=== PATIENT | female | born 1985 | race Caucasian/White ===

== ENCOUNTER 2018-03-27 11:41 | Inpatient (IN) | payer OTHER ==
[2018-03-27] MEDS ORDERED: PREDNISONE 20 MG TABLET PO ONE (12:09)
[2018-03-27] MEDS ORDERED: IPRATROPIUM/ALBUTEROL 0.5-2.5 MG/3 ML AMPUL NEB ONE ×2 (12:09→13:13)
--- NOTE | 2018-03-27 12:11 | ER Document Report ---
ED Medical Screen (RME) - General Chief Complaint: Chest Congestion Stated Complaint: TROUBLE BREATHING Time Seen by Provider: 03/27/18 12:08 Notes: 33 years old female presents today with cough and difficulty in breathing with a history of asthma for the last several days. No fever chills but had sore throat. Vomited one time this morning. On examination morbid obesity, decreased breath sounds bilaterally as well as TRAVEL OUTSIDE OF THE [place] IN LAST 30 DAYS: No - Related Data Allergies/Adverse Reactions: No Known Allergies Allergy (Verified 03/27/18 11:45) Past Medical History - Past Medical History Cardiac Medical History: Reports: Hx Hypertension Endocrine Medical History: Reports: Hx Diabetes Mellitus Type 2 Psychiatric Medical History: Reports: Hx Anxiety, Hx Depression Past Surgical History: Reports: Hx Appendectomy - Immunizations Hx Diphtheria, Pertussis, Tetanus Vaccination: Yes Physical Exam - Vital signs Vitals: Temp Pulse Resp BP Pulse Ox 99.6 F 118 H 24 H 172/110 H 96 03/27/18 12:02 03/27/18 12:02 03/27/18 12:02 03/27/18 12:02 03/27/18 12:02 Course - Vital Signs Vital signs: Temp Pulse Resp BP Pulse Ox 99.6 F 118 H 24 H 172/110 H 96 03/27/18 12:02 03/27/18 12:02 03/27/18 12:02 03/27/18 12:02 03/27/18 12:02 Doctor's Discharge - Discharge Referrals: KRYSTLE HUTCHISON MD [Primary Care Provider] - Follow up as needed
[2018-03-27] MEDS ORDERED: HYDROCODONE BIT/HOMATROPINE SYRUP 5 ML UDCUP PO ONE (12:15)
[2018-03-27] MEDS ORDERED: CLONIDINE HCL 0.2 MG TABLET PO ONE (12:24)
[2018-03-27 12:58] LABS: HEMATOCRIT 28.1 % (36.0-47.0); HEMOGLOBIN 8.4 g/dL (12.0-15.5); MEAN CORPUSCULAR HGB CONC 29.8 g/dL (32.0-36.0); PLATELET COUNT 412 10^3/uL (150-450); RED BLOOD COUNT 4.64 10^6/uL (3.72-5.28); RED CELL DISTRIBUTION WIDTH 20.8 % (11.5-14.0); WHITE BLOOD COUNT 9.1 10^3/uL (4.0-10.5)
[2018-03-27] MEDS ORDERED: HYDROCODONE BIT/HOMATROPINE 5-1.5 MG TABLET PO ONE (13:00)
[2018-03-27 13:05] LABS: APPEARANCE,URINE CLEAR; BILIRUBIN,URINE NEGATIVE (NEGATIVE); COLOR,URINE YELLOW; GLUCOSE, URINE NEGATIVE (NEGATIVE); KETONES,URINE NEGATIVE (NEGATIVE); LEUKOCYTE ESTERASE,URINE NEGATIVE (NEGATIVE); NITRITE,URINE NEGATIVE (NEGATIVE); PROTEIN,URINE 100 mg/dL (NEGATIVE); URINE SPECIFIC GRAVITY 1.012
[2018-03-27 13:06] LABS: MEAN CORPUSCULAR VOLUME 61 fl (80-97)
[2018-03-27] MEDS ORDERED: FUROSEMIDE INJ/PF 40 MG/4 ML SDV IV ONE ×2 (13:12→16:02)
[2018-03-27] MEDS ORDERED: NITROGLYCERIN 2% OINTMENT 1 GM PACKET TP ONE (13:12)
--- NOTE | 2018-03-27 13:14 | ER Document Report ---
ED General - General Chief Complaint: Chest Congestion Stated Complaint: TROUBLE BREATHING Time Seen by Provider: 03/27/18 12:08 Mode of Arrival: Ambulatory Information source: Patient Notes: This is a 33-year-old female with a history of morbid obesity, asthma presents to the emergency room with 1 week history of cough, shortness of breath, increasing lower extremity edema and weight gain. Patient does take inhalers as well as metoprolol daily. She is not allergic to any medicines. [facility] is followed [facility]. TRAVEL OUTSIDE OF THE [place] IN LAST 30 DAYS: No - Related Data Allergies/Adverse Reactions: No Known Allergies Allergy (Verified 03/27/18 11:45) Past Medical History - Social History Smoking Status: Former Smoker Frequency of alcohol use: None Drug Abuse: None Family History: Reviewed & Not Pertinent Patient has suicidal ideation: No Patient has homicidal ideation: No - Past Medical History Cardiac Medical History: Reports: Hx Hypertension Pulmonary Medical History: Reports: Hx Asthma Endocrine Medical History: Reports: Hx Diabetes Mellitus Type 2 Renal/ Medical History: Denies: Hx Peritoneal Dialysis Psychiatric Medical History: Reports: Hx Anxiety, Hx Depression Past Surgical History: Reports: Hx Appendectomy - Immunizations Hx Diphtheria, Pertussis, Tetanus Vaccination: Yes Physical Exam - Vital signs Vitals: Temp Pulse Resp BP Pulse Ox 99.6 F 118 H 24 H 172/110 H 96 03/27/18 12:02 03/27/18 12:02 03/27/18 12:02 03/27/18 12:02 03/27/18 12:02 Notes: Physical exam: GENERAL: She is alert and oriented x3, blood pressure is 174/123, pulse is 118, respiratory rate 24, O2 sat 96% on room air. Patient is afebrile. HEAD: Atraumatic, normocephalic. EYES: Pupils equal round and reactive to light, extraocular movements intact, sclera anicteric, conjunctiva are normal. ENT: TMs normal, nares patent, oropharynx clear without exudates. Moist mucous membranes. NECK: Normal range of motion, supple without obvious mass or JVD. LUNGS: Guided wheezing with some baseline crackles. HEART: Regular rate and rhythm without murmurs, rubs or gallops. ABDOMEN: Soft, normoactive bowel sounds. No tenderness to palpation. No guarding, no rebound. No masses appreciated. EXTREMITIES: 1+ edema to the lower extremities NEUROLOGICAL: Cranial nerves II through XII grossly intact. Normal speech, moving all extremities. PSYCH: Normal mood, normal affect. SKIN: Warm, Dry, normal turgor, no rashes or lesions noted. Course - Re-evaluation Re-evalutation: 03/27/18 16:01 This is a 33-year-old female with possible sarcoidosis who presents with significant dyspnea on exertion which is been progressive and worsening over the past few weeks. Patient also reports increasing lower extremity edema and weight gain. Patient does have cardiomegaly on chest x-ray and does have lower extremity edema. Her BNP is elevated at 1600 and she has normal renal function. The concern is that she may have a cardiomyopathy with CHF. I discussed the case with Dr. Boyle who agreed the patient should be admitted for further workup including echo. - Vital Signs Vital signs: Temp Pulse Resp BP Pulse Ox 99.6 F 118 H 23 H 148/93 H 95 03/27/18 12:02 03/27/18 12:02 03/27/18 15:28 03/27/18 15:28 03/27/18 15:28 - Laboratory Result Diagrams: 03/27/18 12:30 03/27/18 13:34 Laboratory results interpreted by me: 03/27/18 03/27/18 03/27/18 12:30 12:30 13:34 Hgb 8.4 L Hct 28.1 L MCV 61 L MCH 18.0 L MCHC 29.8 L RDW 20.8 H AST 59 H ALT 56 H Creatine Kinase 161 H NT-Pro-B Natriuret Pep Albumin 3.3 L Urine Protein 100 H Urine Urobilinogen 2.0 H 03/27/18 13:34 Hgb Hct MCV MCH MCHC RDW AST ALT Creatine Kinase NT-Pro-B Natriuret Pep 1600 H Albumin Urine Protein Urine Urobilinogen - Diagnostic Test Radiology reviewed: Image reviewed, Reports reviewed - Audio megaly - EKG Interpretation by Me Rate: Normal - EKG shows normal sinus rhythm with a ventricular rate of 93, poor R wave progression, no acute ST-T wave changes Discharge - Discharge Clinical Impression: Dyspnea on exertion, CHF Clinical Impression: (Ruled Out): Lipid overload Condition: Stable Disposition: ADMITTED INPATIENT Admitting Provider: Hospitalist - Dr Moreno Unit Admitted: Telemetry Referrals: KRYSTLE HUTCHISON MD [NO LOCAL MD] - Follow up as needed
[2018-03-27 13:18] LABS: ABSOLUTE LYMPHOCYTES# (MANUAL) 2.3 10^3/uL (0.5-4.7); ABSOLUTE MONOCYTES # (MANUAL) 0.8 10^3/uL (0.1-1.4); ABSOLUTE NEUTROPHILS# (MANUAL) 5.6 10^3/uL (1.7-8.2); BASOPHILS % (MANUAL) 0 % (0-2); EOSINOPHILS % (MANUAL) 4 % (0-6); LYMPHOCYTES % (MANUAL) 25 % (13-45); MONOCYTES % (MANUAL) 9 % (3-13); SEGMENTED NEUTROPHILS % (MAN) 62 % (42-78); TOTAL CELLS COUNTED 100
[2018-03-27 13:19] LABS: ANISOCYTOSIS 2+; HYPOCHROMASIA 4+; OVALOCYTES 1+; PLATELET COMMENT ADEQUATE; POIKILOCYTOSIS 1+; POLYCHROMASIA SLIGHT; SCHISTOCYTES 1+; TARGET CELLS 1+
--- NOTE | 2018-03-27 13:34 | RADIOLOGY REPORT (SQ) ---
EXAM DESCRIPTION: CHEST SINGLE VIEW COMPLETED DATE/TIME: 03/27/2018 1:23 pm REASON FOR STUDY: Cough COMPARISON: None. EXAM PARAMETERS: NUMBER OF VIEWS: One view. TECHNIQUE: Single frontal radiographic view of the chest acquired. RADIATION DOSE: NA LIMITATIONS: None. FINDINGS: LUNGS AND PLEURA: No opacities, masses or pneumothorax. No pleural effusion. MEDIASTINUM AND HILAR STRUCTURES: No masses. Contour normal. HEART AND VASCULAR STRUCTURES: Cardiomegaly. No pulmonary edema. BONES: Scoliosis. HARDWARE: None in the chest. OTHER: No other significant finding. IMPRESSION: Gross cardiomegaly without pulmonary edema. Scoliosis. TECHNICAL DOCUMENTATION: JOB ID: [id number] [employer]- All Rights Reserved Reading location - IP/workstation name: [email or web address]
[2018-03-27 14:19] LABS: ALANINE AMINOTRANSFERASE 56 U/L (9-52); ALBUMIN 3.3 g/dL (3.5-5.0); ALKALINE PHOSPHATASE 78 U/L (38-126); ANION GAP 8 (5-19); ASPARTATE AMINO TRANSFERASE 59 U/L (14-36); BILIRUBIN,DIRECT 0.4 mg/dL (0.0-0.4); BILIRUBIN,TOTAL 0.9 mg/dL (0.2-1.3); BLOOD UREA NITROGEN 9 mg/dL (7-20); CALCIUM 8.4 mg/dL (8.4-10.2); CARBON DIOXIDE 27 mmol/L (22-30); CHLORIDE 107 mmol/L (98-107); CREATINE KINASE 161 U/L (30-135); GLUCOSE 101 mg/dL (75-110); POTASSIUM 4.2 mmol/L (3.6-5.0); SODIUM 142.1 mmol/L (137-145); TOTAL PROTEIN 6.5 g/dL (6.3-8.2)
[2018-03-27] MEDS ORDERED: LABETALOL HCL INJ 20 MG/4 ML DISP.SYRIN IV ONE (14:27)
[2018-03-27 14:28] LABS: CREATINE KINASE MB 0.98 ng/mL (<4.55); NT PRO BNP 1600 pg/mL (<125)
[2018-03-27 14:30] LABS: TROPONIN I < 0.012 ng/mL
[2018-03-27] MEDS ORDERED: TEMAZEPAM 15 MG CAPSULE PO PRN (16:46)
[2018-03-27] MEDS ORDERED: MAG HYDROX/AL HYDROX/SIMETH SUSP 30 ML UDCUP PO PRN (16:46)
[2018-03-27] MEDS ORDERED: MAGNESIUM HYDROXIDE SUSP 30 ML UDCUP PO PRN (16:46)
[2018-03-27] MEDS ORDERED: ONDANSETRON 4 MG TAB.RAPDIS PO PRN (16:46)
[2018-03-27] MEDS ORDERED: ACETAMINOPHEN 325 MG TABLET PO PRN (16:46)
[2018-03-27] MEDS ORDERED: MORPHINE SULFATE 10 MG/ML INJ IV PRN (17:01)
[2018-03-27] MEDS ORDERED: MORPHINE SULFATE 10 MG/ML INJ IV ONE (17:30)
[2018-03-27 17:54] LABS: CREATINE KINASE MB 1.01 ng/mL (<4.55)
--- NOTE | 2018-03-27 17:55 | PDOC H&P ---
History of Present Illness Admission Date/PCP: 03/27/18 16:17 TYLER VIVAR MD Patient complains of: Dyspnea and swelling History of Present Illness: RUPA WELLS is a 33 year old female who presented to the emergency room with a 2-month history of progressively worsening dyspnea on exertion and swelling of her lower extremities. She began having some difficulty with dyspnea approximately 6 months ago when she was [facility] who felt that she had pulmonary sarcoidosis and or histoplasmosis. She was supposed to be evaluated by a time clock mechanic however due to delays and cancellations caused by the recent inclement weather she is not yet been evaluated. She states that her dyspnea on exertion is now severe limiting her to only minimal activities before she becomes short of breath and requires rest. She has moderate to severe swelling of her lower extremities which improves after rest and elevation but returns during the day when her feet are down or she is active. She has additionally noted a nonproductive cough over the last week. She denies nausea, vomiting, diarrhea, constipation, abdominal pain, chest pain, palpitations, diaphoresis, syncope, headache, fever and chills. She denies prior similar episodes and has not identified any aggravating or ameliorating factors for her dyspnea on exertion and swelling. She has a past history of morbid obesity and asthma as well as hypertension. When she was seen in the emergency room she was found to be significantly short of breath and and markedly hypertensive. On evaluation she was found to have a BNP pro of 1600, a hypochromic microcytic anemia with a hemoglobin of 8.4 and a chest x-ray demonstrating marked cardiomegaly without evidence of pulmonary edema. She was admitted to the hospital for further evaluation and treatment. Past Medical History Cardiac Medical History: Reports: Hypertension Denies: Coronary Artery Disease, DVT, Myocardial Infarction, Hyperlipidema, Pulmonary Embolism, Heart Murmur Pulmonary Medical History: Reports: Asthma, Other - Possible pulmonary sarcoidosis and/or histoplasmosis Denies: Chronic Obstructive Pulmonary Disease (COPD), Respiratory Failure, Tuberculosis EENT Medical History: Reports: None Neurological Medical History: Denies: Hemorrhagic CVA, Ischemic CVA, Multiple Sclerosis, Seizures Endocrine Medical History: Reports: Diabetes Mellitus Type 2, Obesity Denies: Diabetes Mellitus Type 1, Hyperthyroidism, Hypothyroidism Renal/ Medical History: Denies: Chronic Kidney Disease, Nephrolithiasis Malignancy Medical History: Reports: None GI Medical History: Denies: Crohn's Disease, Gastroesophageal Reflux Disease, Peptic Ulcer Disease, Ulcerative Colitis Musculoskeltal Medical History: Denies: Arthritis, Gout Skin Medical History: Denies: Eczema, Psoriasis Psychiatric Medical History: Reports: Depression Denies: Alcohol Dependency, General Anxiety Disorder, Substance Abuse, Tobacco Dependency Traumatic Medical History: Reports: None Hematology: Denies: Sickle Cell Disease, Bleeding Tendencies Infectious Medical History: Reports: None Past Surgical History Past Surgical History: Reports: Appendectomy Social History Smoking Status: Former Smoker Family History Family History: DM, Hypertension Parental Family History Reviewed: Yes Children Family History Reviewed: NA Sibling(s) Family History Reviewed.: Yes Medication/Allergy Home Medications: Albuterol Sulfate [Proair HFA Inhalation Aerosol 8.5 gm MDI] 2 puff IH Q6HP PRN 03/27/18 Ipratropium [place] [Atrovent Hfa] 2 puff IH QID 03/27/18 Metoprolol Tartrate [Lopressor 100 mg Tablet] 100 mg PO DAILY 03/27/18 Topiramate [Topamax 25 mg Tablet] 25 mg PO BID 03/27/18 Allergies/Adverse Reactions: No Known Allergies Allergy (Verified 03/27/18 11:45) Review of Systems Constitutional: ABSENT: chills, fever(s) Eyes: PRESENT: visual disturbances. ABSENT: other - Ocular pain Ears: ABSENT: hearing changes, other - Ear pain Nose, Mouth, and Throat: ABSENT: mouth pain, sore throat, vertigo Cardiovascular: PRESENT: dyspnea on exertion, edema. ABSENT: chest pain, orthropnea, palpitations Respiratory: PRESENT: cough, dyspnea. ABSENT: hemoptysis, sputum Gastrointestinal: ABSENT: abdominal pain, constipation, diarrhea, dysphagia, nausea, vomiting Genitourinary: ABSENT: dysuria, hematuria - [id number] Musculoskeletal: ABSENT: deformity, joint swelling Integumentary: ABSENT: pruritus, rash Neurological: ABSENT: confusion, convulsions, dizziness, focal weakness, memory loss, syncope, tremor(s), vertigo Psychiatric: PRESENT: depression. ABSENT: anxiety Endocrine: ABSENT: cold intolerance, heat intolerance, polydipsia, polyphagia, polyuria Hematologic/Lymphatic: ABSENT: easy bleeding, easy bruising Allergic/Immunologic: ABSENT: seasonal rhinorrhea - [id number], other - Insect bite allergy Physical Exam Vital Signs: Temp Pulse Resp BP Pulse Ox 99.6 F 118 H 23 H 148/93 H 95 03/27/18 12:02 03/27/18 12:02 03/27/18 15:28 03/27/18 15:28 03/27/18 15:28 General appearance: PRESENT: no acute distress, cooperative, morbidly obese Head exam: PRESENT: atraumatic, normocephalic Eye exam: PRESENT: conjunctiva pink, EOMI. ABSENT: conjunctival injection, nystagmus, periorbital swelling, scleral icterus Ear exam: PRESENT: normal external ear exam. ABSENT: bleeding, drainage Mouth exam: PRESENT: neck supple, tongue midline Neck exam: ABSENT: thyromegaly, tracheal deviation Respiratory exam: PRESENT: decreased breath sounds - Slightly decreased breath sounds throughout all lung lewis, prolonged expiratory phas - Mildly prolonged expiratory phase, rales - Fine bibasilar rales posteriorly., symmetrical, unlabored, wheezes - Minimal end expiratory wheezes Cardiovascular exam: PRESENT: gallop - Faint and intermittent S4 gallop noted, RRR. ABSENT: clicks, rubs Pulses: PRESENT: normal radial pulses, normal dorsalis pedis pul Vascular exam: PRESENT: normal capillary refill. ABSENT: pallor GI/Abdominal exam: PRESENT: normal bowel sounds, soft - [id number] Rectal exam: PRESENT: deferred Extremities exam: PRESENT: +2 edema - Bilateral lower extremities with pitting. ABSENT: calf tenderness, clubbing, joint swelling Musculoskeletal exam: PRESENT: ambulatory, full ROM. ABSENT: deformity, dislocation, tenderness Neurological exam: PRESENT: alert, awake, oriented to person, oriented to place , oriented to time, oriented to situation, CN II-XII grossly intact. ABSENT: motor sensory deficit Psychiatric exam: PRESENT: appropriate affect, normal mood Skin exam: ABSENT: jaundice, rash, urticaria Results Impressions: Chest X-Ray 03/27/18 12:08 IMPRESSION: Gross cardiomegaly without pulmonary edema. Scoliosis. Assessment & Plan - Diagnosis (1) Dyspnea on minimal exertion Is this a current diagnosis for this admission?: Yes Plan: Rupa his dyspnea may well be due to her underlying pulmonary disease of some nature and as such she will be treated with an aggressive pulmonary toilet utilizing Xopenex every 8 hours and Atrovent every 8 hours with budesonide every 12 hours. Additionally with her significant cardiomegaly and with the findings on her physical exam it is strongly considered that she may have acute congestive heart failure and as such she will be treated with metoprolol XL 200 mg p.o. daily, lisinopril 20 mg p.o. daily, torsemide 40 mg p.o. daily and spironolactone 25 mg p.o. daily. A lipid profile will be obtained to evaluate appropriate therapy for any lipid abnormalities. A TSH will be obtained in the morning. Additionally patient is treated with morphine 2 mg IV x1 stat followed by morphine 2 mg IV every hour as needed dyspnea or chest pain. An echocardiogram is ordered and will be read by Dr. Boyle and a pulmonary consultation is obtained with Dr. Medel. I have personally reviewed her EKG which shows a normal sinus rhythm with significant left ventricular hypertrophy and I have personally evaluated her chest x-ray which shows marked cardiomegaly without radiographic evidence of acute congestive heart failure or pulmonary edema. (2) Edema of both lower extremities Is this a current diagnosis for this admission?: Yes Plan: Med his edema will be addressed by continuing diuretic therapy. She was started on Lasix 40 mg IV in the emergency room and this will be discontinued in favor of oral torsemide 40 mg p.o. daily. Daily lab work will be evaluated with a chemistry profile to assess diuretic therapy. A TSH will also be obtained during her hospital stay. (3) Malignant hypertension Is this a current diagnosis for this admission?: Yes Plan: Patient has been taking metoprolol tartrate 100 mg p.o. daily and her blood pressure is significantly elevated at the time of her admission. She was treated with labetalol in the emergency room with a fair result. She will be treated with metoprolol succinate 200 mg p.o. daily initially as well as lisinopril 20 mg p.o. daily, torsemide 40 mg p.o. daily and spironolactone 25 mg p.o. daily. We will monitor her daily lab work with a chemistry profile, complete blood count and magnesium level. (4) Morbid obesity Is this a current diagnosis for this admission?: Yes Plan: Dietary planning and other assistance for weight control and weight loss will be offered during her hospital course. (5) History of diabetes mellitus, type II Is this a current diagnosis for this admission?: Yes Plan: Patient does not have a significantly elevated blood sugar and is not on current medication for diabetes though she does eat a sensible diet. Hemoglobin A1c will be checked to further evaluate. - Time Time Spent: Greater than 70 Minutes Medications reviewed and adjusted accordingly: Yes Anticipated discharge: Home
[2018-03-27 17:58] LABS: TROPONIN I < 0.012 ng/mL
[2018-03-27] MEDS ORDERED: METOPROLOL SUCCINATE 50 MG TAB.SR.24H PO ONE (18:00)
--- NOTE | 2018-03-27 18:13 | EKG REPORT ---
SEVERITY:- ABNORMAL ECG - SINUS RHYTHM PROBABLE LEFT ATRIAL ABNORMALITY PROLONGED QT INTERVAL POOR R WAVE TRANSITION ANTERIOR PRECORDIAL LEADS. INFEROLATERAL ST-T CHANGES. : Confirmed by: Chavez Dunaway MD 27-Mar-2018 18:13:00
[2018-03-27] MEDS: IPRATROPIUM BROMIDE 0.02% NEB 0.5 MG/2.5 ML AMPUL NEB SCH (18:39)
[2018-03-27] MEDS: LEVALBUTEROL HCL NEB 1.25 MG/3 ML AMPUL NEB SCH (18:40)
[2018-03-27] MEDS: DOCUSATE SODIUM 100 MG CAPSULE PO SCH (18:54)
[2018-03-27] MEDS: TORSEMIDE 20 MG TABLET PO SCH (19:14)
[2018-03-27] MEDS: BUDESONIDE NEB 0.5 MG/2 ML AMPUL NEB SCH (21:09)
[2018-03-27] MEDS: FAMOTIDINE 20 MG TABLET PO SCH (21:46)
[2018-03-27] MEDS: TOPIRAMATE 25 MG TABLET PO SCH (21:56)
[2018-03-27 23:48] LABS: CREATINE KINASE MB 0.67 ng/mL (<4.55); TROPONIN I < 0.012 ng/mL
[2018-03-28] MEDS: IPRATROPIUM BROMIDE 0.02% NEB 0.5 MG/2.5 ML AMPUL NEB SCH ×3 (00:03→16:28)
[2018-03-28] MEDS: LEVALBUTEROL HCL NEB 1.25 MG/3 ML AMPUL NEB SCH ×3 (00:03→16:29)
[2018-03-28 05:24] LABS: ABSOLUTE BASOPHILS # (AUTO) 0.1 10^3/uL (0.0-0.2); ABSOLUTE LYMPHOCYTES (AUTO) 2.2 10^3/uL (0.5-4.7); ABSOLUTE MONOCYTES (AUTO) 0.8 10^3/uL (0.1-1.4); ABSOLUTE NEUT (AUTO) 7.5 10^3/uL (1.7-8.2); BASOPHILS % (AUTO) 0.8 % (0-2); HEMATOCRIT 27.9 % (36.0-47.0); HEMOGLOBIN 8.3 g/dL (12.0-15.5); LYMPHOCYTES % (AUTO) 20.6 % (13-45); MEAN CORPUSCULAR HEMOGLOBIN 17.6 pg (27.0-33.4); MEAN CORPUSCULAR HGB CONC 29.6 g/dL (32.0-36.0); MEAN CORPUSCULAR VOLUME 59 fl (80-97); MONOCYTES % (AUTO) 7.8 % (3-13); PLATELET COUNT 385 10^3/uL (150-450); RED CELL DISTRIBUTION WIDTH 20.2 % (11.5-14.0); SEGMENTED NEUTROPHILS % (AUTO) 70.8 % (42-78); TOTAL CELLS COUNTED % (AUTO) 100 %; WHITE BLOOD COUNT 10.6 10^3/uL (4.0-10.5)
[2018-03-28 05:37] LABS: ALANINE AMINOTRANSFERASE 57 U/L (9-52); ALBUMIN 3.5 g/dL (3.5-5.0); ALKALINE PHOSPHATASE 81 U/L (38-126); ANION GAP 8 (5-19); ASPARTATE AMINO TRANSFERASE 48 U/L (14-36); BILIRUBIN,DIRECT 0.4 mg/dL (0.0-0.4); BILIRUBIN,TOTAL 0.9 mg/dL (0.2-1.3); BLOOD UREA NITROGEN 11 mg/dL (7-20); CALCIUM 8.6 mg/dL (8.4-10.2); CARBON DIOXIDE 32 mmol/L (22-30); CHLORIDE 102 mmol/L (98-107); CHOLESTEROL 128.61 mg/dL (0-200); CREATINE KINASE 142 U/L (30-135); GLUCOSE 109 mg/dL (75-110); POTASSIUM 3.8 mmol/L (3.6-5.0); SODIUM 141.7 mmol/L (137-145); TOTAL PROTEIN 6.6 g/dL (6.3-8.2); TRIGLYCERIDES 58 mg/dL (<150)
[2018-03-28 05:48] LABS: DIRECT LDL 72 mg/dL (<100); POLYCHROMASIA SLIGHT; TOXIC GRANULATION 1+
[2018-03-28 05:50] LABS: TROPONIN I < 0.012 ng/mL
[2018-03-28 05:58] LABS: HYPOCHROMASIA 3+
[2018-03-28 05:59] LABS: ANISOCYTOSIS 2+; OVALOCYTES SLIGHT; POIKILOCYTOSIS 1+; SCHISTOCYTES 1+; TARGET CELLS 1+
[2018-03-28 06:00] LABS: PLATELET COMMENT ADEQUATE; PLATELET GIANT PRESENT; PLATELET LARGE PRESENT
[2018-03-28] MEDS: BUDESONIDE NEB 0.5 MG/2 ML AMPUL NEB SCH ×2 (08:24→20:34)
[2018-03-28] MEDS: DOCUSATE SODIUM 100 MG CAPSULE PO SCH ×2 (09:22→17:23)
[2018-03-28] MEDS: LISINOPRIL 10 MG TABLET PO SCH (09:22)
[2018-03-28] MEDS: METOPROLOL SUCCINATE 50 MG TAB.SR.24H PO SCH (09:22)
[2018-03-28] MEDS: SPIRONOLACTONE 25 MG TABLET PO SCH (09:22)
[2018-03-28] MEDS: FAMOTIDINE 20 MG TABLET PO SCH ×2 (09:22→21:10)
[2018-03-28] MEDS: ENOXAPARIN SODIUM INJ 40 MG/0.4 ML DISP.SYRIN SUBCUT SCH (09:22)
[2018-03-28] MEDS: TOPIRAMATE 25 MG TABLET PO SCH ×2 (09:23→21:10)
[2018-03-28] MEDS: TORSEMIDE 20 MG TABLET PO SCH (09:24)
[2018-03-28] MEDS ORDERED: METOPROLOL SUCCINATE 50 MG TAB.SR.24H PO SCH (10:00)
[2018-03-28 11:22] LABS: PATH REVIEW PATHOLOGIST REVIEWED
--- NOTE | 2018-03-28 14:46 | PDOC PROGRESS REPORT ---
Subjective Progress Note for:: 03/28/18 Subjective:: RUPA WELLS is a 33 year old female who presented to the emergency room with a 2-month history of progressively worsening dyspnea on exertion and swelling of her lower extremities. She began having some difficulty with dyspnea approximately 6 months ago when she was evaluated [facility] a [facility] who felt that she had pulmonary sarcoidosis and or histoplasmosis. She was supposed to be evaluated by a secured entrance monitor however due to delays and cancellations caused by the recent inclement weather she is not yet been evaluated. She states that her dyspnea on exertion is now severe limiting her to only minimal activities before she becomes short of breath and requires rest. She has moderate to severe swelling of her lower extremities which improves after rest and elevation but returns during the day when her feet are down or she is active. She has additionally noted a nonproductive cough over the last week. She denies nausea, vomiting, diarrhea, constipation, abdominal pain, chest pain, palpitations, diaphoresis, syncope, headache, fever and chills. She denies prior similar episodes and has not identified any aggravating or ameliorating factors for her dyspnea on exertion and swelling. She has a past history of morbid obesity and asthma as well as hypertension. When she was seen in the emergency room she was found to be significantly short of breath and and markedly hypertensive. On evaluation she was found to have a BNP pro of 1600, a hypochromic microcytic anemia with a hemoglobin of 8.4 and a chest x-ray demonstrating marked cardiomegaly without evidence of pulmonary edema. She was admitted to the hospital for further evaluation and treatment. 03/28/18: Rupa is significantly improved and her dyspnea as she is able to tolerate some activities in her room without any dyspnea and she has noticed improvement in her lower extremities being less swollen. Her cough is significantly improved is essentially absent at this point. She continues to be pain-free and has no symptoms of nausea, vomiting, diarrhea, constipation, palpitations, diaphoresis, syncope, fever or chills. She agrees to be patient in giving it time to further diurese and obtain further improvement in her respiratory status. Dr. Medel has still not seen the patient but she is eagerly awaiting his evaluation. Reason For Visit: CONGESTIVE HEART FAILURE Physical Exam Vital Signs: Temp Pulse Resp BP Pulse Ox 98.5 F 100 24 H 139/85 H 98 03/28/18 11:42 03/28/18 13:56 03/28/18 11:42 03/28/18 11:42 03/28/18 11:42 Intake & Output 03/26/18 03/27/18 03/28/18 23:59 23:59 23:59 Intake Total 240 Balance 240 Weight 137.6 kg 132.4 kg General appearance: PRESENT: no acute distress, cooperative, morbidly obese Head exam: PRESENT: atraumatic, normocephalic Eye exam: ABSENT: conjunctival injection, periorbital swelling, scleral icterus Ear exam: PRESENT: normal external ear exam. ABSENT: drainage Mouth exam: PRESENT: neck supple, tongue midline Neck exam: ABSENT: JVD, thyromegaly, tracheal deviation Respiratory exam: PRESENT: clear to auscultation [place], symmetrical, unlabored Cardiovascular exam: PRESENT: RRR. ABSENT: clicks, gallop, rubs Vascular exam: PRESENT: normal capillary refill. ABSENT: pallor GI/Abdominal exam: PRESENT: normal bowel sounds, soft Rectal exam: PRESENT: deferred Extremities exam: PRESENT: +2 edema - 2+ pitting edema of the bilateral pretibial surfaces and feet and ankles.. ABSENT: clubbing, joint swelling Musculoskeletal exam: PRESENT: full ROM. ABSENT: deformity, dislocation, tenderness Neurological exam: PRESENT: alert, oriented to person, oriented to place, oriented to time, oriented to situation, CN II-XII grossly intact. ABSENT: motor sensory deficit Psychiatric exam: PRESENT: appropriate affect, normal mood Skin exam: ABSENT: jaundice, rash, urticaria Results Laboratory Results: 03/28/18 05:03 03/28/18 05:03 03/28/18 03/28/18 03/28/18 05:03 05:03 05:03 WBC 10.6 H RBC 4.70 Hgb 8.3 L Hct 27.9 L MCV 59 L MCH 17.6 L MCHC 29.6 L RDW 20.2 H Plt Count 385 Seg Neutrophils % 70.8 Lymphocytes % 20.6 Monocytes % 7.8 Eosinophils % 0.0 Basophils % 0.8 Absolute Neutrophils 7.5 Absolute Lymphocytes 2.2 Absolute Monocytes 0.8 Absolute Eosinophils 0.0 Absolute Basophils 0.1 Sodium 141.7 Potassium 3.8 Chloride 102 Carbon Dioxide 32 H Anion Gap 8 BUN 11 Creatinine 0.84 Est GFR ( Amer) > 60 Est GFR (Non-Af Amer) > 60 Glucose 109 Calcium 8.6 Magnesium 1.6 Total Bilirubin 0.9 AST 48 H ALT 57 H Alkaline Phosphatase 81 Total Protein 6.6 Albumin 3.5 Triglycerides 58 Cholesterol 128.61 LDL Cholesterol Direct 72 VLDL Cholesterol 12.0 HDL Cholesterol 42 TSH 0.43 L 03/27/18 03/27/18 03/27/18 17:10 17:10 23:08 Creatine Kinase 161 H 152 H CK-MB (CK-2) 1.01 Troponin I < 0.012 03/27/18 03/28/18 03/28/18 23:08 05:03 05:03 Creatine Kinase 142 H CK-MB (CK-2) 0.67 0.60 Troponin I < 0.012 < 0.012 Impressions: Chest X-Ray 03/27/18 12:08 IMPRESSION: Gross cardiomegaly without pulmonary edema. Scoliosis. Assessment & Plan - Diagnosis (1) Dyspnea on minimal exertion Is this a current diagnosis for this admission?: Yes Plan: Rupa's dyspnea may well be due to her underlying pulmonary disease of some nature and as such she will be treated with an aggressive pulmonary toilet utilizing Xopenex every 8 hours and Atrovent every 8 hours with budesonide every 12 hours. Additionally with her significant cardiomegaly and with the findings on her physical exam it is strongly considered that she may have acute congestive heart failure and as such she will be treated with metoprolol XL 200 mg p.o. daily, lisinopril 20 mg p.o. daily, torsemide 40 mg p.o. daily and spironolactone 25 mg p.o. daily. A lipid profile will be obtained to evaluate appropriate therapy for any lipid abnormalities. A TSH will be obtained in the morning. Additionally patient is treated with morphine 2 mg IV x1 stat followed by morphine 2 mg IV every hour as needed dyspnea or chest pain. An echocardiogram is ordered and will be read by Dr. Boyle and a pulmonary consultation is obtained with Dr. Medel. I have personally reviewed her EKG which shows a normal sinus rhythm with significant left ventricular hypertrophy and I have personally evaluated her chest x-ray which shows marked cardiomegaly without radiographic evidence of acute congestive heart failure or pulmonary edema. 03/28/18: Rupa's dyspnea is improving with aggressive pulmonary toilet as well as medical treatment for congestive heart failure. I will have patient ambulate 5 times daily with extension of her duration of activity as well as increasing the intensity of her activity to the degree possible to be obtained. Nursing staff has been informed of this plan. I anticipate Dr. Medel's consultation either today or tomorrow. Patient will have daily lab work performed to follow and evaluate her multiple treatments including those for this problem. (2) Edema of both lower extremities Is this a current diagnosis for this admission?: Yes Plan: Rupa's edema will be addressed by continuing diuretic therapy. She was started on Lasix 40 mg IV in the emergency room and this will be discontinued in favor of oral torsemide 40 mg p.o. daily. Daily lab work will be evaluated with a chemistry profile to assess diuretic therapy. A TSH will also be obtained during her hospital stay. 03/28/18: Meghans edema is slightly improved today and further evaluation will be made on a day-to-day basis with continuation of diuretic therapy and possible increase or decrease as appropriate. Daily laboratory evaluations will be obtained to assess therapy and to correct any electrolyte abnormalities which may occur due to therapy. Her TSH was low at 4.3 therefore follow-up thyroid evaluations will be obtained. (3) Malignant hypertension Is this a current diagnosis for this admission?: Yes Plan: Patient has been taking metoprolol tartrate 100 mg p.o. daily and her blood pressure is significantly elevated at the time of her admission. She was treated with labetalol in the emergency room with a fair result. She will be treated with metoprolol succinate 200 mg p.o. daily initially as well as lisinopril 20 mg p.o. daily, torsemide 40 mg p.o. daily and spironolactone 25 mg p.o. daily. We will monitor her daily lab work with a chemistry profile, complete blood count and magnesium level. 03/28/18: Rupa's blood pressure has been significantly reduced with initiation of her current therapeutic plan. She is nearly at goal for therapy (130/80) on this regimen. The current regiment will be continued through the remainder of her hospitalization and afterward unless there is a need to make alterations. Daily lab work will be followed to evaluate for any complications of therapy. (4) Morbid obesity Is this a current diagnosis for this admission?: Yes Plan: Dietary planning and other assistance for weight control and weight loss will be offered during her hospital course. (5) History of diabetes mellitus, type II Is this a current diagnosis for this admission?: Yes Plan: Patient does not have a significantly elevated blood sugar and is not on current medication for diabetes though she does eat a sensible diet. Hemoglobin A1c will be checked to further evaluate. 03/28/18: Patient's hemoglobin A1c is 6.2 which is consistent with prediabetes or possibly 1 of the metabolic syndromes but is not diagnostic of diabetes mellitus. Patient will be continued on a continuous carbohydrate no concentrated sweets diet as it is appropriate for her weight loss and will not contribute to any progression towards diabetes or worsen any metabolic syndrome. This diet therapy will be maintained to the remainder of the hospital course and recommended posthospitalization. - Time Time Spent with patient: 35 or more minutes Medications reviewed and adjusted accordingly: Yes Anticipated discharge: Home
[2018-03-29] MEDS: IPRATROPIUM BROMIDE 0.02% NEB 0.5 MG/2.5 ML AMPUL NEB SCH ×4 (00:01→23:59)
[2018-03-29] MEDS: LEVALBUTEROL HCL NEB 1.25 MG/3 ML AMPUL NEB SCH ×4 (00:01→23:59)
[2018-03-29 06:28] LABS: ABSOLUTE BASOPHILS # (AUTO) 0.1 10^3/uL (0.0-0.2); ABSOLUTE EOSINOPHILS # (AUTO) 0.3 10^3/uL (0.0-0.6); ABSOLUTE MONOCYTES (AUTO) 0.8 10^3/uL (0.1-1.4); ABSOLUTE NEUT (AUTO) 3.9 10^3/uL (1.7-8.2); BASOPHILS % (AUTO) 1.5 % (0-2); EOSINOPHILS % (AUTO) 3.2 % (0-6); HEMATOCRIT 29.3 % (36.0-47.0); HEMOGLOBIN 8.6 g/dL (12.0-15.5); LYMPHOCYTES % (AUTO) 43.8 % (13-45); MEAN CORPUSCULAR HEMOGLOBIN 17.5 pg (27.0-33.4); MEAN CORPUSCULAR HGB CONC 29.2 g/dL (32.0-36.0); MEAN CORPUSCULAR VOLUME 60 fl (80-97); MONOCYTES % (AUTO) 8.7 % (3-13); PLATELET COUNT 401 10^3/uL (150-450); RED BLOOD COUNT 4.88 10^6/uL (3.72-5.28); RED CELL DISTRIBUTION WIDTH 20.3 % (11.5-14.0); SEGMENTED NEUTROPHILS % (AUTO) 42.8 % (42-78); TOTAL CELLS COUNTED % (AUTO) 100 %; WHITE BLOOD COUNT 9.1 10^3/uL (4.0-10.5)
[2018-03-29 06:30] LABS: BLOOD UREA NITROGEN 19 mg/dL (7-20); CALCIUM 8.6 mg/dL (8.4-10.2); CARBON DIOXIDE 29 mmol/L (22-30); CHLORIDE 102 mmol/L (98-107); GLUCOSE 82 mg/dL (75-110); POTASSIUM 4.1 mmol/L (3.6-5.0)
[2018-03-29 06:31] LABS: ANION GAP 9 (5-19)
[2018-03-29 06:43] LABS: FREE T3 3.46 pg/mL (2.77-5.27)
[2018-03-29 06:44] LABS: FREE T4 (FREE THYROXINE) 1.57 ng/dL (0.78-2.19)
[2018-03-29 06:49] LABS: ANISOCYTOSIS 2+; BURR CELLS SLIGHT; HYPOCHROMASIA 2+; OVALOCYTES 1+; PLATELET COMMENT ADEQUATE; POIKILOCYTOSIS 2+; POLYCHROMASIA SLIGHT; SCHISTOCYTES SLIGHT; TARGET CELLS 2+
[2018-03-29] MEDS: BUDESONIDE NEB 0.5 MG/2 ML AMPUL NEB SCH ×2 (07:51→20:19)
[2018-03-29] MEDS: SPIRONOLACTONE 25 MG TABLET PO SCH (09:56)
[2018-03-29] MEDS: DOCUSATE SODIUM 100 MG CAPSULE PO SCH ×2 (09:56→18:34)
[2018-03-29] MEDS: TOPIRAMATE 25 MG TABLET PO SCH ×2 (09:56→21:25)
[2018-03-29] MEDS: LISINOPRIL 10 MG TABLET PO SCH (09:56)
[2018-03-29] MEDS: FAMOTIDINE 20 MG TABLET PO SCH ×2 (09:56→21:25)
[2018-03-29] MEDS: TORSEMIDE 20 MG TABLET PO SCH (09:56)
[2018-03-29] MEDS: METOPROLOL SUCCINATE 50 MG TAB.SR.24H PO SCH (09:56)
[2018-03-29] MEDS: ENOXAPARIN SODIUM INJ 40 MG/0.4 ML DISP.SYRIN SUBCUT SCH (09:56)
--- NOTE | 2018-03-29 12:54 | XCELERA REPORT ---
[address] [address] Transthoracic Echocardiogram Report Name: AXEL WELLS Age: 33 yrs Gender: Female : 1985 Patient Status: Inpatient Patient Location: [address] [place] [address] Study Date: 03/28/2018 02:14 PM Procedure: A two-dimensional transthoracic echocardiogram with color flow and Doppler was performed. The study was technically difficult with many images being suboptimal in quality. Reason For Study: Acute congestive heart failure History: CHF. Ordering Physician: CELESTE NÚÑEZ Performed By: Carlene Garland Interpretation Summary The left ventricle is mildly dilated. There is normal left ventricular wall thickness. LV EF is 55% Left ventricular systolic function is low normal. Doppler measurements suggest normal left ventricular diastolic function The left ventricular wall motion is normal. The right ventricle is mildly dilated. There is mild right ventricular hypertrophy. The right ventricular systolic function is normal. The right atrium is mildly dilated. The left atrium is mildly dilated. There is no evidence of mitral valve prolapse. There is no mitral valve stenosis. There is no mitral regurgitation noted. There is no aortic valve stenosis There is no LVOT obstruction. No aortic regurgitation is present. There is no tricuspid stenosis. There is a mild amount of tricuspid regurgitation There is mild pulmonary hypertension by echo RVSP is 38 to 43 mm of Hg , with RA mean of 5 to 10. There is no pulmonic valvular stenosis. There is a mild amount of pulmonic regurgitation Minimal pericardial effusion. There are no echocardiographic or Doppler indications for cardiac tamponade MMode/2D Measurements & Calculations RVDd: 3.8 cm LVIDd: 6.2 cm FS: 31.7 % Ao root diam: 3.2 cm IVSd: 1.1 cm LVIDs: 4.2 cm EDV(Teich): 193.8 ml Ao root area: 8.0 cm2 LVPWd: 1.1 cm ESV(Teich): 79.9 ml EF(Teich): 58.7 % Doppler Measurements & Calculations MV E max latasha: MV dec slope: Ao V2 max: LV V1 max P.4 cm/sec 134.3 cm/sec 4.3 mmHg MV A max latasha: 574.7 cm/sec2 Ao max PG: LV V1 max: 25.6 cm/sec MV dec time: 7.2 mmHg 103.1 cm/sec MV E/A: 3.9 0.17 sec PA V2 max: PI end-d latasha: TR max latasha: 109.6 cm/sec 132.7 cm/sec 286.6 cm/sec PA max P.8 mmHg TR max P.8 mmHg Left Ventricle The left ventricle is mildly dilated. There is normal left ventricular wall thickness. LV EF is 55%. Left ventricular systolic function is low normal. Doppler measurements suggest normal left ventricular diastolic function. The left ventricular wall motion is normal. There is no thrombus. Right Ventricle The right ventricle is mildly dilated. There is mild right ventricular hypertrophy. The right ventricular systolic function is normal. Atria The right atrium is mildly dilated. The left atrium is mildly dilated. Mitral Valve There is no evidence of mitral valve prolapse. There is no vegetation seen on the mitral valve. There is no mitral valve stenosis. There is no mitral regurgitation noted. Aortic Valve There is no aortic valvular vegetation. There is no aortic valve stenosis. There is no LVOT obstruction. No aortic regurgitation is present. Tricuspid Valve There is no tricuspid stenosis. There is a mild amount of tricuspid regurgitation. There is mild pulmonary hypertension by echo. RVSP is 38 to 43 mm of Hg , with RA mean of 5 to 10. Pulmonic Valve There is no pulmonic valvular stenosis. There is a mild amount of pulmonic regurgitation. Great Vessels The aortic root is normal size. Effusions Minimal pericardial effusion. There are no echocardiographic or Doppler indications for cardiac tamponade. : CELESTE NÚÑEZ > Natalee Boyle
--- NOTE | 2018-03-29 16:57 | PDOC PROGRESS REPORT ---
Subjective Progress Note for:: 03/29/18 Subjective:: RUPA WELLS is a 33 year old female who presented to the emergency room with a 2-month history of progressively worsening dyspnea on exertion and swelling of her lower extremities. She began having some difficulty with dyspnea approximately 6 months ago when she was evaluated [facility] a [facility] who felt that she had pulmonary sarcoidosis and or histoplasmosis. She was supposed to be evaluated by a washtub worker however due to delays and cancellations caused by the recent inclement weather she is not yet been evaluated. She states that her dyspnea on exertion is now severe limiting her to only minimal activities before she becomes short of breath and requires rest. She has moderate to severe swelling of her lower extremities which improves after rest and elevation but returns during the day when her feet are down or she is active. She has additionally noted a nonproductive cough over the last week. She denies nausea, vomiting, diarrhea, constipation, abdominal pain, chest pain, palpitations, diaphoresis, syncope, headache, fever and chills. She denies prior similar episodes and has not identified any aggravating or ameliorating factors for her dyspnea on exertion and swelling. She has a past history of morbid obesity and asthma as well as hypertension. When she was seen in the emergency room she was found to be significantly short of breath and and markedly hypertensive. On evaluation she was found to have a BNP pro of 1600, a hypochromic microcytic anemia with a hemoglobin of 8.4 and a chest x-ray demonstrating marked cardiomegaly without evidence of pulmonary edema. She was admitted to the hospital for further evaluation and treatment. 03/28/18: Rupa is significantly improved and her dyspnea as she is able to tolerate some activities in her room without any dyspnea and she has noticed improvement in her lower extremities being less swollen. Her cough is significantly improved is essentially absent at this point. She continues to be pain-free and has no symptoms of nausea, vomiting, diarrhea, constipation, palpitations, diaphoresis, syncope, fever or chills. She agrees to be patient in giving it time to further diurese and obtain further improvement in her respiratory status. Dr. Medel has still not seen the patient but she is eagerly awaiting his evaluation. 03/29/18: Rupa states that she feels a little bit better again today. Feels like she is able to breathe more easily and she has not been experiencing significant dyspnea. She continues to have reduction of swelling in her lower extremities and her cough is been absent. Dr. Medel saw her yesterday and she was very happy to meet him. He has not reported his consultation findings as yet but I would be expecting to see that this weekend. I have looked at her echocardiogram and it does appear that she has mild pulmonary hypertension but no other significant finding with the exception of some minimal concentric enlargement of the left ventricular wall. Blood pressures overall significantly improved and clinically she appears to be substantially improved from her previous evaluation. She has been tolerating activity including walking in the halls without significant dyspnea. Reason For Visit: CONGESTIVE HEART FAILURE Physical Exam Vital Signs: Temp Pulse Resp BP Pulse Ox 97.9 F 86 20 132/96 H 100 03/29/18 16:28 03/29/18 16:28 03/29/18 16:28 03/29/18 16:28 03/29/18 16:28 Intake & Output 03/27/18 03/28/18 03/29/18 23:59 23:59 23:59 Intake Total 1072 358 Balance 1072 358 Weight 137.6 kg 132.4 kg 128.4 kg General appearance: PRESENT: no acute distress, cooperative, morbidly obese Head exam: PRESENT: atraumatic, normocephalic Eye exam: ABSENT: conjunctival injection, scleral icterus Ear exam: PRESENT: normal external ear exam. ABSENT: drainage Mouth exam: PRESENT: neck supple, tongue midline Neck exam: ABSENT: JVD, thyromegaly, tracheal deviation Respiratory exam: PRESENT: clear to auscultation [place], symmetrical, unlabored Cardiovascular exam: PRESENT: RRR. ABSENT: clicks, gallop, rubs Vascular exam: PRESENT: normal capillary refill. ABSENT: pallor GI/Abdominal exam: PRESENT: normal bowel sounds, soft Rectal exam: PRESENT: deferred Extremities exam: PRESENT: pedal edema, +1 edema - Bilateral lower extremity edema from the knees to the feet with pitting.. ABSENT: joint swelling Musculoskeletal exam: PRESENT: full ROM, normal inspection Neurological exam: PRESENT: alert, oriented to person, oriented to place, oriented to time, oriented to situation, CN II-XII grossly intact. ABSENT: motor sensory deficit Psychiatric exam: PRESENT: appropriate affect, normal mood Skin exam: ABSENT: jaundice, rash, urticaria Results Laboratory Results: 03/29/18 05:27 03/29/18 05:27 03/29/18 03/29/18 03/29/18 05:27 05:27 05:27 WBC 9.1 RBC 4.88 Hgb 8.6 L Hct 29.3 L MCV 60 L MCH 17.5 L MCHC 29.2 L RDW 20.3 H Plt Count 401 Seg Neutrophils % 42.8 Lymphocytes % 43.8 Monocytes % 8.7 Eosinophils % 3.2 Basophils % 1.5 Absolute Neutrophils 3.9 Absolute Lymphocytes 4.0 Absolute Monocytes 0.8 Absolute Eosinophils 0.3 Absolute Basophils 0.1 Sodium 140.0 Potassium 4.1 Chloride 102 Carbon Dioxide 29 Anion Gap 9 BUN 19 Creatinine 1.00 Est GFR ( Amer) > 60 Est GFR (Non-Af Amer) > 60 Glucose 82 Calcium 8.6 Magnesium 1.7 Free T4 1.57 Free T3 pg/mL 3.46 03/27/18 03/27/18 03/27/18 17:10 17:10 23:08 Creatine Kinase 161 H 152 H CK-MB (CK-2) 1.01 Troponin I < 0.012 03/27/18 03/28/18 03/28/18 23:08 05:03 05:03 Creatine Kinase 142 H CK-MB (CK-2) 0.67 0.60 Troponin I < 0.012 < 0.012 Impressions: Chest X-Ray 03/27/18 12:08 IMPRESSION: Gross cardiomegaly without pulmonary edema. Scoliosis. Assessment & Plan - Diagnosis (1) Dyspnea on minimal exertion Is this a current diagnosis for this admission?: Yes Plan: Rupa's dyspnea may well be due to her underlying pulmonary disease of some nature and as such she will be treated with an aggressive pulmonary toilet utilizing Xopenex every 8 hours and Atrovent every 8 hours with budesonide every 12 hours. Additionally with her significant cardiomegaly and with the findings on her physical exam it is strongly considered that she may have acute congestive heart failure and as such she will be treated with metoprolol XL 200 mg p.o. daily, lisinopril 20 mg p.o. daily, torsemide 40 mg p.o. daily and spironolactone 25 mg p.o. daily. A lipid profile will be obtained to evaluate appropriate therapy for any lipid abnormalities. A TSH will be obtained in the morning. Additionally patient is treated with morphine 2 mg IV x1 stat followed by morphine 2 mg IV every hour as needed dyspnea or chest pain. An echocardiogram is ordered and will be read by Dr. Boyle and a pulmonary consultation is obtained with Dr. Medel. I have personally reviewed her EKG which shows a normal sinus rhythm with significant left ventricular hypertrophy and I have personally evaluated her chest x-ray which shows marked cardiomegaly without radiographic evidence of acute congestive heart failure or pulmonary edema. 03/28/18: Meghans dyspnea is improving with aggressive pulmonary toilet as well as medical treatment for congestive heart failure. I will have patient ambulate 5 times daily with extension of her duration of activity as well as increasing the intensity of her activity to the degree possible to be obtained. Nursing staff has been informed of this plan. I anticipate Dr. Medel's consultation either today or tomorrow. Patient will have daily lab work performed to follow and evaluate her multiple treatments including those for this problem. 03/29/18: Meghans dyspnea is again improving and she is tolerating activity with 5 times daily ambulations. She was seen by Dr. Medel in consultation with report pending. Her echocardiogram was reviewed by myself and found to show a pulmonary hypertension as well as mild left ventricular muscular wall hypertrophy. Her clinical improvement is encouraging and I eagerly await Dr. Medel's consultation report. Further therapy will be based upon pulmonology recommendations. (2) Edema of both lower extremities Is this a current diagnosis for this admission?: Yes Plan: Meghans edema will be addressed by continuing diuretic therapy. She was started on Lasix 40 mg IV in the emergency room and this will be discontinued in favor of oral torsemide 40 mg p.o. daily. Daily lab work will be evaluated with a chemistry profile to assess diuretic therapy. A TSH will also be obtained during her hospital stay. 03/28/18: Meghans edema is slightly improved today and further evaluation will be made on a day-to-day basis with continuation of diuretic therapy and possible increase or decrease as appropriate. Daily laboratory evaluations will be obtained to assess therapy and to correct any electrolyte abnormalities which may occur due to therapy. Her TSH was low at 0.43 therefore follow-up thyroid evaluations will be obtained. 03/29/18: Meghans edema is significantly improved today moving from 2+ down to 1+, however pitting is still present. Her thyroid functions are normal as assessed by free T4 and free T3. We will continue to monitor her edema with daily exams. Thus far she has diuresed almost 12 kg of weight. (3) Malignant hypertension Is this a current diagnosis for this admission?: Yes Plan: Patient has been taking metoprolol tartrate 100 mg p.o. daily and her blood pressure is significantly elevated at the time of her admission. She was treated with labetalol in the emergency room with a fair result. She will be treated with metoprolol succinate 200 mg p.o. daily initially as well as lisinopril 20 mg p.o. daily, torsemide 40 mg p.o. daily and spironolactone 25 mg p.o. daily. We will monitor her daily lab work with a chemistry profile, complete blood count and magnesium level. 03/28/18: Rupa's blood pressure has been significantly reduced with initiation of her current therapeutic plan. She is nearly at goal for therapy (130/80) on this regimen. The current regiment will be continued through the remainder of her hospitalization and afterward unless there is a need to make alterations. Daily lab work will be followed to evaluate for any complications of therapy. 03/29/18: Med his blood pressure continues to be somewhat higher than her therapeutic goal. Her medications will be adjusted to gain better control of her blood pressure. Her heart rate is still in the 90s and therefore beta-blockade is not truly adequate and her metoprolol succinate will be increased to 400 mg p.o. daily. (4) Morbid obesity Is this a current diagnosis for this admission?: Yes Plan: Dietary planning and other assistance for weight control and weight loss will be offered during her hospital course. 03/29/18: Dietary consultation is ordered. (5) History of diabetes mellitus, type II Is this a current diagnosis for this admission?: Yes Plan: Patient does not have a significantly elevated blood sugar and is not on current medication for diabetes though she does eat a sensible diet. Hemoglobin A1c will be checked to further evaluate. 03/28/18: Patient's hemoglobin A1c is 6.2 which is consistent with prediabetes or possibly 1 of the metabolic syndromes but is not diagnostic of diabetes mellitus. Patient will be continued on a continuous carbohydrate no concentrated sweets diet as it is appropriate for her weight loss and will not contribute to any progression towards diabetes or worsen any metabolic syndrome. This diet therapy will be maintained to the remainder of the hospital course and recommended posthospitalization. - Time Time Spent with patient: 35 or more minutes Medications reviewed and adjusted accordingly: Yes Anticipated discharge: Home
[2018-03-29] MEDS ORDERED: METOPROLOL SUCCINATE 50 MG TAB.SR.24H PO ONE (16:59)
[2018-03-30 06:40] LABS: HEMATOCRIT 29.5 % (36.0-47.0); HEMOGLOBIN 8.7 g/dL (12.0-15.5); MEAN CORPUSCULAR HEMOGLOBIN 17.7 pg (27.0-33.4); MEAN CORPUSCULAR HGB CONC 29.4 g/dL (32.0-36.0); MEAN CORPUSCULAR VOLUME 60 fl (80-97); PLATELET COUNT 366 10^3/uL (150-450); RED CELL DISTRIBUTION WIDTH 20.7 % (11.5-14.0); WHITE BLOOD COUNT 7.6 10^3/uL (4.0-10.5)
[2018-03-30 06:53] LABS: ANION GAP 8 (5-19); BLOOD UREA NITROGEN 17 mg/dL (7-20); CALCIUM 8.9 mg/dL (8.4-10.2); CARBON DIOXIDE 28 mmol/L (22-30); CHLORIDE 103 mmol/L (98-107); GLUCOSE 79 mg/dL (75-110); SODIUM 139.4 mmol/L (137-145)
[2018-03-30 07:08] LABS: ABSOLUTE LYMPHOCYTES# (MANUAL) 3.3 10^3/uL (0.5-4.7); ABSOLUTE MONOCYTES # (MANUAL) 0.2 10^3/uL (0.1-1.4); ABSOLUTE NEUTROPHILS# (MANUAL) 3.9 10^3/uL (1.7-8.2); BASOPHILS % (MANUAL) 0 % (0-2); EOSINOPHILS % (MANUAL) 3 % (0-6); LYMPHOCYTES % (MANUAL) 43 % (13-45); MONOCYTES % (MANUAL) 3 % (3-13); SEGMENTED NEUTROPHILS % (MAN) 51 % (42-78); TOTAL CELLS COUNTED 100
[2018-03-30 07:11] LABS: ANISOCYTOSIS 3+; HELMET CELLS 1+; OVALOCYTES 1+; POIKILOCYTOSIS 2+; TARGET CELLS 1+
[2018-03-30 07:12] LABS: PLATELET COMMENT ADEQUATE; TEAR DROP CELLS SLIGHT
[2018-03-30] MEDS: BUDESONIDE NEB 0.5 MG/2 ML AMPUL NEB SCH (08:13)
[2018-03-30] MEDS: IPRATROPIUM BROMIDE 0.02% NEB 0.5 MG/2.5 ML AMPUL NEB SCH (08:13)
[2018-03-30] MEDS: LEVALBUTEROL HCL NEB 1.25 MG/3 ML AMPUL NEB SCH (08:13)
[2018-03-30] MEDS: LISINOPRIL 10 MG TABLET PO SCH (09:28)
[2018-03-30] MEDS: SPIRONOLACTONE 25 MG TABLET PO SCH (09:28)
[2018-03-30] MEDS: TOPIRAMATE 25 MG TABLET PO SCH (09:29)
[2018-03-30] MEDS: ENOXAPARIN SODIUM INJ 40 MG/0.4 ML DISP.SYRIN SUBCUT SCH (09:29)
[2018-03-30] MEDS: TORSEMIDE 20 MG TABLET PO SCH (09:29)
[2018-03-30] MEDS: DOCUSATE SODIUM 100 MG CAPSULE PO SCH (09:29)
[2018-03-30] MEDS: FAMOTIDINE 20 MG TABLET PO SCH (09:29)
[2018-03-30] MEDS ORDERED: METOPROLOL SUCCINATE 50 MG TAB.SR.24H PO SCH (10:00)
[2018-03-30 11:31] VITALS: BP 132/96
--- NOTE | 2018-03-30 11:52 | PDOC DISCHARGE SUMMARY ---
General - Admit/Disc Date/PCP Admission Date/Primary Care Provider: 03/27/18 16:17 TYLER VIVAR MD Discharge Date: 03/30/18 - Discharge Diagnosis (1) Acute right heart failure Is this a current diagnosis for this admission?: Yes Summary: Axel's dyspnea may well be due to her underlying pulmonary disease of some nature and as such she will be treated with an aggressive pulmonary toilet utilizing Xopenex every 8 hours and Atrovent every 8 hours with budesonide every 12 hours. Additionally with her significant cardiomegaly and with the findings on her physical exam it is strongly considered that she may have acute congestive heart failure and as such she will be treated with metoprolol XL 200 mg p.o. daily, lisinopril 20 mg p.o. daily, torsemide 40 mg p.o. daily and spironolactone 25 mg p.o. daily. A lipid profile will be obtained to evaluate appropriate therapy for any lipid abnormalities. A TSH will be obtained in the morning. Additionally patient is treated with morphine 2 mg IV x1 stat followed by morphine 2 mg IV every hour as needed dyspnea or chest pain. An echocardiogram is ordered and will be read by Dr. Boyle and a pulmonary consultation is obtained with Dr. Medel. I have personally reviewed her EKG which shows a normal sinus rhythm with significant left ventricular hypertrophy and I have personally evaluated her chest x-ray which shows marked cardiomegaly without radiographic evidence of acute congestive heart failure or pulmonary edema. 03/28/18: Meghans dyspnea is improving with aggressive pulmonary toilet as well as medical treatment for congestive heart failure. I will have patient ambulate 5 times daily with extension of her duration of activity as well as increasing the intensity of her activity to the degree possible to be obtained. Nursing staff has been informed of this plan. I anticipate Dr. Medel's consultation either today or tomorrow. Patient will have daily lab work performed to follow and evaluate her multiple treatments including those for this problem. 03/29/18: Axel's dyspnea is again improving and she is tolerating activity with 5 times daily ambulations. She was seen by Dr. Medel in consultation with report pending. Her echocardiogram was reviewed by myself and found to show a pulmonary hypertension as well as mild left ventricular muscular wall hypertrophy. Her clinical improvement is encouraging and I eagerly await Dr. Medel's consultation report. Further therapy will be based upon pulmonology recommendations. Axel's edema will be addressed by continuing diuretic therapy. She was started on Lasix 40 mg IV in the emergency room and this will be discontinued in favor of oral torsemide 40 mg p.o. daily. Daily lab work will be evaluated with a chemistry profile to assess diuretic therapy. A TSH will also be obtained during her hospital stay. 03/28/18: Axel's edema is slightly improved today and further evaluation will be made on a day-to-day basis with continuation of diuretic therapy and possible increase or decrease as appropriate. Daily laboratory evaluations will be obtained to assess therapy and to correct any electrolyte abnormalities which may occur due to therapy. Her TSH was low at 0.43 therefore follow-up thyroid evaluations will be obtained. 03/29/18: Axel's edema is significantly improved today moving from 2+ down to 1+, however pitting is still present. Her thyroid functions are normal as assessed by free T4 and free T3. We will continue to monitor her edema with daily exams. Thus far she has diuresed almost 12 kg of weight. (4) Morbid obesity Is this a current diagnosis for this admission?: Yes Plan: (5) History of diabetes mellitus, type II Is this a current diagnosis for this admission?: Yes Plan: (2) Malignant hypertension Is this a current diagnosis for this admission?: Yes Summary: Patient has been taking metoprolol tartrate 100 mg p.o. daily and her blood pressure is significantly elevated at the time of her admission. She was treated with labetalol in the emergency room with a fair result. She will be treated with metoprolol succinate 200 mg p.o. daily initially as well as lisinopril 20 mg p.o. daily, torsemide 40 mg p.o. daily and spironolactone 25 mg p.o. daily. We will monitor her daily lab work with a chemistry profile, complete blood count and magnesium level. 03/28/18: Axel's blood pressure has been significantly reduced with initiation of her current therapeutic plan. She is nearly at goal for therapy (130/80) on this regimen. The current regiment will be continued through the remainder of her hospitalization and afterward unless there is a need to make alterations. Daily lab work will be followed to evaluate for any complications of therapy. 03/29/18: Axel's blood pressure continues to be somewhat higher than her therapeutic goal. Her medications will be adjusted to gain better control of her blood pressure. Her heart rate is still in the 90s and therefore beta-blockade is not truly adequate and her metoprolol succinate will be increased to 400 mg p.o. daily. 03/30/18: Axel's blood pressure today is well controlled (when taken with the appropriate sized blood pressure cuff) and her heart rate is 70s indicating a better/more effective beta-blockade. This dosage of metoprolol succinate will be continued at discharge. (3) Pulmonary hypertension Is this a current diagnosis for this admission?: Yes Summary: Pulmonary hypertension was noted on the echocardiogram and was judged to be mild. I am suspicious that the etiology of her pulmonary hypertension is obstructive sleep apnea or other is a possibility per the patient's history that she may have sarcoidosis or histoplasmosis involvement of the lungs. I have no evidence of either of those diagnoses and I am awaiting the results of Dr. Medel's consultation and recommendations for further evaluation and treatment. Since Axel is going to be discharged prior to Dr. Medel's consultation report we will arrange for her to follow-up with Dr. Medel at his outpatient clinic setting. (4) Morbid obesity Is this a current diagnosis for this admission?: Yes Summary: Dietary planning and other assistance for weight control and weight loss will be offered during her hospital course. 03/29/18: Dietary consultation is ordered. (5) History of diabetes mellitus, type II Is this a current diagnosis for this admission?: Yes Summary: Patient does not have a significantly elevated blood sugar and is not on current medication for diabetes though she does eat a sensible diet. Hemoglobin A1c will be checked to further evaluate. 03/28/18: Patient's hemoglobin A1c is 6.2 which is consistent with prediabetes or possibly 1 of the metabolic syndromes but is not diagnostic of diabetes mellitus. Patient will be continued on a continuous carbohydrate no concentrated sweets diet as it is appropriate for her weight loss and will not contribute to any progression towards diabetes or worsen any metabolic syndrome. This diet therapy will be maintained to the remainder of the hospital course and recommended posthospitalization. - Additional Information Resuscitation Status: Full Code Discharge Diet: Cardiac Discharge Activity: Activity As Tolerated, Walk Frequently - Recommend walking for at least 5 minutes at least 3 times a day Prescriptions: Albuterol Sulfate [Proair HFA Inhalation Aerosol 8.5 gm MDI] 2 puff IH QID 25 Days #1 hfa.aer.ad Aspirin [Ecotrin 81 mg EC Tablet] 81 mg PO DAILY 30 Days #30 tabec Ipratropium [place] [Atrovent Hfa] 2 puff IH QID 25 Days #1 hfa.aer.ad Lisinopril 20 mg PO DAILY 30 Days #30 tablet Metoprolol Succinate 2 tab PO DAILY 30 Days #60 tab.er.24h Spironolactone [Aldactone 25 mg Tablet] 25 mg PO DAILY 30 Days #30 tablet Torsemide [Demadex 20 mg Tablet] 40 mg PO DAILY 30 Days #60 tablet Home Medications: Topiramate [Topamax 25 mg Tablet] 25 mg PO BID 03/27/18 Albuterol Sulfate [Proair HFA Inhalation Aerosol 8.5 gm MDI] 2 puff IH QID 25 Days #1 hfa.aer.ad 03/30/18 Aspirin [Ecotrin 81 mg EC Tablet] 81 mg PO DAILY 30 Days #30 tabec 03/30/18 Ipratropium [place] [Atrovent Hfa] 2 puff IH QID 25 Days #1 hfa.aer.ad 03/30/18 Lisinopril 20 mg PO DAILY 30 Days #30 tablet 03/30/18 Metoprolol Succinate 2 tab PO DAILY 30 Days #60 tab.er.24h 03/30/18 Spironolactone [Aldactone 25 mg Tablet] 25 mg PO DAILY 30 Days #30 tablet Torsemide [Demadex 20 mg Tablet] 40 mg PO DAILY 30 Days #60 tablet 03/30/18 History of Present Illness Patient complains of: Dyspnea History of Present Illness: AXEL WELLS is a 33 year old female who presented to the emergency room with a 2-month history of progressively worsening dyspnea on exertion and swelling of her lower extremities. She began having some difficulty with dyspnea approximately 6 months ago when she was evaluated [facility] who felt that she had pulmonary sarcoidosis and or histoplasmosis. She was supposed to be evaluated by a car parker however due to delays and cancellations caused by the recent inclement weather she is not yet been evaluated. She states that her dyspnea on exertion is now severe limiting her to only minimal activities before she becomes short of breath and requires rest. She has moderate to severe swelling of her lower extremities which improves after rest and elevation but returns during the day when her feet are down or she is active. She has additionally noted a nonproductive cough over the last week. She denies nausea, vomiting, diarrhea, constipation, abdominal pain, chest pain, palpitations, diaphoresis, syncope, headache, fever and chills. She denies prior similar episodes and has not identified any aggravating or ameliorating factors for her dyspnea on exertion and swelling. She has a past history of morbid obesity and asthma as well as hypertension. When she was seen in the emergency room she was found to be significantly short of breath and and markedly hypertensive. On evaluation she was found to have a BNP pro of 1600, a hypochromic microcytic anemia with a hemoglobin of 8.4 and a chest x-ray demonstrating marked cardiomegaly without evidence of pulmonary edema. She was admitted to the hospital for further evaluation and treatment. Hospital Course Hospital Course: 03/28/18: Axel is significantly improved and her dyspnea as she is able to tolerate some activities in her room without any dyspnea and she has noticed improvement in her lower extremities being less swollen. Her cough is significantly improved is essentially absent at this point. She continues to be pain-free and has no symptoms of nausea, vomiting, diarrhea, constipation, palpitations, diaphoresis, syncope, fever or chills. She agrees to be patient in giving it time to further diurese and obtain further improvement in her respiratory status. Dr. Medel has still not seen the patient but she is eagerly awaiting his evaluation. 03/29/18: Axel states that she feels a little bit better again today. Feels like she is able to breathe more easily and she has not been experiencing significant dyspnea. She continues to have reduction of swelling in her lower extremities and her cough is been absent. Dr. Medel saw her yesterday and she was very happy to meet him. He has not reported his consultation findings as yet but I would be expecting to see that this weekend. I have looked at her echocardiogram and it does appear that she has mild pulmonary hypertension but no other significant finding with the exception of some minimal concentric enlargement of the left ventricular wall. Blood pressures overall significantly improved and clinically she appears to be substantially improved from her previous evaluation. She has been tolerating activity including walking in the halls without significant dyspnea. 03/30/18: Axel again feels improved and she is getting around quite well walking well over 1000 feet without rest and without dyspnea. She has had no further cough and her lower extremities have returned to a normal appearance without any swelling. I discussed her echocardiographic results with her and we have agreed that she could be discharged today on her current medical regiment utilizing her available inhalers instead of nebulizer treatments. She will be discharged home today in improved and stable condition. It appears that her primary problem at the time of admission was acute/subacute right heart failure which resulted in her rather massive peripheral edema and most likely accounted for her severe dyspnea and dyspnea on exertion. This may also have been responsible for her nonproductive cough. Additionally her pulmonary hypertension would be a contributing factor for developing right heart failure. She was also noted to have malignant hypertension which may also have contributed to the development of right heart failure. She has certainly shown dramatic clinical improvement with treatment of her hypertension and diuresis. Early evidence of the development of left ventricular hypertrophy was noted on her echocardiogram in the form of concentric thickening of the left ventricular wall. Utilizing a angiotensin- converting enzyme inhibitor as part of her regiment is therefore essentially mandatory. Her morbid obesity adds an additional complication and complexity to treatment of all of her medical illnesses and indeed it may be responsible for or at least contributory to all of the above. Dietary recommendations have been made and hopefully Axel will be following a diet as recommended by the hospital dietitian and her consultation. Axel was seen by Dr. Medel during her hospital course however no documentation has been placed on the chart by Dr. Medel at the time of discharge. Since Axel is being discharged today, we will arrange for her to be followed up in Dr. Medel's outpatient clinic for further evaluation of her pulmonary problems. I am strongly suspicious that this patient has obstructive sleep apnea and I am also concerned that she has been told that she may have histoplasmosis or sarcoidosis by her primary care physician at the [facility]. All of these possibilities need to be investigated by further evaluation under the excellent direction and care of Dr. Medel. Axel will also need to follow-up with her primary physician at the [place] [facility] in approximately 2 weeks for reassessment of her current care and possible adjustments to her medications as appropriate. Physical Exam Vital Signs: Temp Pulse Resp BP Pulse Ox 98.0 F 77 20 129/98 H 97 03/30/18 08:22 03/30/18 08:22 03/30/18 08:22 03/30/18 08:22 03/30/18 08:22 Intake & Output 03/28/18 03/29/18 03/30/18 23:59 23:59 23:59 Intake Total 1072 1258 740 Balance 1072 1258 740 Weight 132.4 kg 128.4 kg 122.7 kg General appearance: PRESENT: no acute distress, cooperative, morbidly obese Head exam: PRESENT: atraumatic, normocephalic Respiratory exam: PRESENT: clear to auscultation [place], symmetrical, unlabored Cardiovascular exam: PRESENT: RRR. ABSENT: clicks, gallop, rubs Vascular exam: PRESENT: normal capillary refill. ABSENT: pallor Extremities exam: ABSENT: joint swelling, pedal edema Musculoskeletal exam: PRESENT: full ROM, normal inspection Neurological exam: PRESENT: alert, oriented to person, oriented to place, oriented to time, oriented to situation, CN II-XII grossly intact. ABSENT: motor sensory deficit Psychiatric exam: PRESENT: appropriate affect, normal mood Skin exam: ABSENT: jaundice, rash, urticaria Results Laboratory Results: 03/30/18 06:18 03/30/18 06:18 03/30/18 03/30/18 06:18 06:18 WBC 7.6 RBC 4.90 Hgb 8.7 L Hct 29.5 L MCV 60 L MCH 17.7 L MCHC 29.4 L RDW 20.7 H Plt Count 366 Seg Neutrophils % Not Reportable Lymphocytes % Not Reportable Monocytes % Not Reportable Eosinophils % Not Reportable Basophils % Not Reportable Absolute Neutrophils Not Reportable Absolute Lymphocytes Not Reportable Absolute Monocytes Not Reportable Absolute Eosinophils Not Reportable Absolute Basophils Not Reportable Sodium 139.4 Potassium 4.0 Chloride 103 Carbon Dioxide 28 Anion Gap 8 BUN 17 Creatinine 0.94 Est GFR ( Amer) > 60 Est GFR (Non-Af Amer) > 60 Glucose 79 Calcium 8.9 Magnesium 1.8 03/27/18 03/27/18 03/27/18 17:10 17:10 23:08 Creatine Kinase 161 H 152 H CK-MB (CK-2) 1.01 Troponin I < 0.012 03/27/18 03/28/18 03/28/18 23:08 05:03 05:03 Creatine Kinase 142 H CK-MB (CK-2) 0.67 0.60 Troponin I < 0.012 < 0.012 EKG Comments: EKG shows normal sinus rhythm with a rate of 93 with borderline left atrial hypertrophy and a mildly prolonged QT interval Impressions: Chest X-Ray 03/27/18 12:08 IMPRESSION: Gross cardiomegaly without pulmonary edema. Scoliosis. Qualifiers - * PATIENT BEING DISCHARGED WITH ANY OF THE FOLLOWING DIAGNOSIS: No Plan Discharge Plan: Discharge to home in improved and stable condition.
== END 2018-03-30 12:50 | disposition home or self-care (01) | DRG 292 ==
LOC: ER 11:41 → EH 16:17 → 3S 18:15
PROVIDERS: ADMIT Emergency Medicine; ATTEND Emergency Medicine
PROC: 3E0234Z Introduction of Serum, Toxoid and Vaccine into Muscle, Percutaneous Approach (ICD-10-PCS; principal; 2018-03-30)
DX: I11.0 Hypertensive heart disease with heart failure (principal); Z68.41 Body mass index [BMI] 40.0-44.9, adult; I50.811 Acute right heart failure; E11.8 Type 2 diabetes mellitus with unspecified complications; D86.9 Sarcoidosis, unspecified; B39.9 Histoplasmosis, unspecified; I27.20 Pulmonary hypertension, unspecified; J45.909 Unspecified asthma, uncomplicated; F41.8 Other specified anxiety disorders; E66.01 Morbid (severe) obesity due to excess calories; Z87.891 Personal history of nicotine dependence; Z23 Encounter for immunization
CPT/HCPCS: 36415; 71045; 80048; 80053; 80061; 81001; 81025; 82550; 82553; 83036; 83735; 83880; 84439; 84443; 84481; 84484; 85025; 85652; 90686; 93005; 93010; 93306; 94640; 96374; 96375; 99285; J1650; J1940; J3490; J7512; J7620

== ENCOUNTER 2018-12-04 14:59 | Emergency (ER) | payer OTHER ==
[2018-12-04] MEDS ORDERED: ACETAMINOPHEN 325 MG TABLET PO ONE (16:07)
--- NOTE | 2018-12-04 16:09 | ER Document Report ---
ED Medical Screen (RME) - General Chief Complaint: Headache >24 hrs old Stated Complaint: SICK Time Seen by Provider: 12/04/18 15:59 Primary Care Provider: TYLER VIVAR MD [Primary Care Provider] - Follow up as needed Mode of Arrival: Ambulatory Information source: Patient Notes: Patient presents with complaint of elevated blood pressure. Patient reports pr essure of 170/124 at home. Patient states she has had right-sided headache pain as well. Patient denies any chest pain nausea or vomiting. Patient does complain of dizziness. Patient states that she has been compliant with her blood pressure medication metoprolol and clonidine. hx: CHF, sarcoidosis, hypertension, asthma, depression TRAVEL OUTSIDE OF THE [place] IN LAST 30 DAYS: No - Related Data Allergies/Adverse Reactions: No Known Allergies Allergy (Verified 12/04/18 15:24) Past Medical History - Social History Frequency of alcohol use: None Drug Abuse: None - Past Medical History Cardiac Medical History: Reports: Hx Congestive Heart Failure, Hx Hypertension Denies: Hx Coronary Artery Disease, Hx DVT, Hx Heart Attack, Hx Hypercholesterolemia, Hx Pulmonary Embolism, Hx Heart Murmur Pulmonary Medical History: Reports: Hx Asthma Denies: Hx COPD, Hx Respiratory Failure, Hx Tuberculosis Neurological Medical History: Denies: Hx Seizures Endocrine Medical History: Reports: Hx Diabetes Mellitus Type 2. Denies: Hx Diabetes Mellitus Type 1, Hx Hyperthyroidism, Hx Hypothyroidism Renal/ Medical History: Denies: Hx Peritoneal Dialysis GI Medical History: Denies: Hx Crohn's Disease, Hx Gastroesophageal Reflux Disease, Hx Ulcerative Colitis Musculoskeltal Medical History: Denies Hx Arthritis, Denies Hx Gout Skin Medical History: Denies Hx Eczema, Denies Hx Psoriasis Psychiatric Medical History: Reports: Hx Anxiety, Hx Depression Past Surgical History: Reports: Hx Appendectomy - Immunizations Hx Diphtheria, Pertussis, Tetanus Vaccination: Yes Physical Exam - Vital signs Vitals: Temp Pulse Resp BP Pulse Ox 98.7 F 107 H 20 189/131 H 96 12/04/18 15:42 12/04/18 15:42 12/04/18 15:42 12/04/18 15:42 12/04/18 15:42 - Neurological Neuro grossly intact: Yes Ariella Coma Scale Eye Opening: Spontaneous Ariella Coma Scale Verbal: Oriented [place] Coma Scale Motor: Obeys Commands Ariella Coma Scale Total: 15 Speech: Normal Course - Vital Signs Vital signs: Temp Pulse Resp BP Pulse Ox 98.7 F 107 H 20 189/131 H 96 12/04/18 15:42 12/04/18 15:42 12/04/18 15:42 12/04/18 15:42 12/04/18 15:42 Doctor's Discharge - Discharge Referrals: TYLER VIVAR MD [Primary Care Provider] - Follow up as needed
--- NOTE | 2018-12-04 16:35 | RADIOLOGY REPORT (SQ) ---
EXAM DESCRIPTION: CHEST 2 VIEWS COMPLETED DATE/TIME: 12/04/2018 4:25 pm REASON FOR STUDY: HTN, dizzy COMPARISON: 11/12/2018. EXAM PARAMETERS: NUMBER OF VIEWS: two views TECHNIQUE: Digital Frontal and Lateral radiographic views of the chest acquired. RADIATION DOSE: NA LIMITATIONS: none FINDINGS: LUNGS AND PLEURA: No opacities, masses or pneumothorax. No pleural effusion. MEDIASTINUM AND HILAR STRUCTURES: No masses or contour abnormalities. HEART AND VASCULAR STRUCTURES: Stable cardiomegaly. Mild vascular congestion BONES: No acute findings. Degenerative changes in the spine with scoliosis. HARDWARE: None in the chest. OTHER: No other significant finding. IMPRESSION: STABLE CARDIOMEGALY WITH MILD VASCULAR CONGESTION. TECHNICAL DOCUMENTATION: JOB ID: [id number] [employer]- All Rights Reserved Reading location - IP/workstation name: [email or web address]
--- NOTE | 2018-12-04 16:46 | RADIOLOGY REPORT (SQ) ---
EXAM DESCRIPTION: CT HEAD WITHOUT COMPLETED DATE/TIME: 12/04/2018 4:37 pm REASON FOR STUDY: PINON, Hypertensive COMPARISON: 11/12/2018. TECHNIQUE: Axial images acquired through the brain without intravenous contrast. Images reviewed wi th bone, brain and subdural windows. Additional sagittal and coronal reconstructions were generated. Images stored on PACS. All CT scanners at this facility use dose modulation, iterative reconstruction, and/or weight based d osing when appropriate to reduce radiation dose to as low as reasonably achievable (ALARA). [facility]: Dose Right [facility]: CareDose [facility]: Dose Right [facility]: Teradose 4D [facility]: ClickDiagnostics RADIATION DOSE: CT Rad equipment meets quality standard of care and radiation dose reduction techniq ues were employed. CTDIvol: 53.2 mGy. DLP: 1070 mGy-cm. mGy. LIMITATIONS: None. FINDINGS: VENTRICLES: Normal size and contour. CEREBRUM: No masses. No hemorrhage. No midline shift. No evidence for acute infarction. Normal gra y/white matter differentiation. No areas of low density in the white matter. CEREBELLUM: No masses. No hemorrhage. No alteration of density. No evidence for acute infarction. EXTRAAXIAL SPACES: No fluid collections. No masses. ORBITS AND GLOBE: No intra- or extraconal masses. Normal contour of globe without masses. CALVARIUM: No fracture. PARANASAL SINUSES: No fluid or mucosal thickening. SOFT TISSUES: No mass or hematoma. OTHER: No other significant finding. IMPRESSION: NORMAL BRAIN CT WITHOUT CONTRAST. EVIDENCE OF ACUTE STROKE: NO. COMMENT: Quality ID # [id number]: Final reports with documentation of one or more dose reduction techniques (e.g., Automated exposure control, adjustment of the mA and/or kV according to patient size, use of iterative reconstruction technique) TECHNICAL DOCUMENTATION: JOB ID: [id number] [employer]- All Rights Reserved Reading location - IP/workstation name: [email or web address]
[2018-12-04 17:23] LABS: HEMATOCRIT 30.3 % (36.0-47.0); HEMOGLOBIN 8.8 g/dL (12.0-15.5); MEAN CORPUSCULAR HEMOGLOBIN 17.9 pg (27.0-33.4); MEAN CORPUSCULAR VOLUME 62 fl (80-97); PLATELET COUNT 346 10^3/uL (150-450); RED BLOOD COUNT 4.92 10^6/uL (3.72-5.28); RED CELL DISTRIBUTION WIDTH 20.5 % (11.5-14.0); WHITE BLOOD COUNT 7.1 10^3/uL (4.0-10.5)
[2018-12-04 17:42] LABS: ALANINE AMINOTRANSFERASE 23 U/L (9-52); ALBUMIN 4.1 g/dL (3.5-5.0); ALKALINE PHOSPHATASE 96 U/L (38-126); ANION GAP 6 (5-19); ASPARTATE AMINO TRANSFERASE 33 U/L (14-36); BILIRUBIN,DIRECT 0.2 mg/dL (0.0-0.4); BILIRUBIN,TOTAL 0.3 mg/dL (0.2-1.3); BLOOD UREA NITROGEN 7 mg/dL (7-20); CALCIUM 8.9 mg/dL (8.4-10.2); CARBON DIOXIDE 28 mmol/L (22-30); CHLORIDE 107 mmol/L (98-107); GLUCOSE 86 mg/dL (75-110); SODIUM 141.3 mmol/L (137-145)
[2018-12-04 17:43] LABS: ABSOLUTE LYMPHOCYTES# (MANUAL) 3.3 10^3/uL (0.5-4.7); ABSOLUTE MONOCYTES # (MANUAL) 0.1 10^3/uL (0.1-1.4); BAND NEUTROPHILS % (MANUAL) 1 % (3-5); BASOPHILS % (MANUAL) 0 % (0-2); EOSINOPHILS % (MANUAL) 1 % (0-6); LYMPHOCYTES % (MANUAL) 44 % (13-45); MONOCYTES % (MANUAL) 2 % (3-13); SEGMENTED NEUTROPHILS % (MAN) 50 % (42-78); TOTAL CELLS COUNTED 100
[2018-12-04 17:44] LABS: PLATELET COMMENT ADEQUATE
[2018-12-04 17:45] LABS: ANISOCYTOSIS 2+; HYPOCHROMASIA 2+; OVALOCYTES SLIGHT; POIKILOCYTOSIS 1+; POLYCHROMASIA 1+; TARGET CELLS 1+
[2018-12-04] MEDS ORDERED: CLONIDINE HCL 0.1 MG TABLET PO ONE (21:04)
[2018-12-04] MEDS ORDERED: FUROSEMIDE INJ/PF 40 MG/4 ML SDV IV ONE (21:21)
--- NOTE | 2018-12-04 21:21 | ER Document Report ---
ED General - General Chief Complaint: Headache >24 hrs old Stated Complaint: SICK Time Seen by Provider: 12/04/18 15:59 Primary Care Provider: TYLER VIVAR MD [Primary Care Provider] - Follow up in 3-5 days Mode of Arrival: Ambulatory Notes: Patient is a 33-year-old female that comes emergency department for chief complaint of elevated blood pressure. She states her blood pressure was 170s at home. She states she is also had a headache intermittently, upon arrival to the ER she reported a right-sided headache although she denies any headache on my evaluation. She denies any focal numbness or weakness, visual changes. She states that she gets winded and tired when walking distances but denies shortness of breath at rest. Denies chest pain, nausea or vomiting, fever/chills. Past medical history includes CHF, hypertension, asthma, depression. TRAVEL OUTSIDE OF THE [place] IN LAST 30 DAYS: No - Related Data Allergies/Adverse Reactions: No Known Allergies Allergy (Verified 12/04/18 15:24) Past Medical History - General Information source: Patient - Social History Smoking Status: Former Smoker Frequency of alcohol use: None Drug Abuse: None Lives with: Family Family History: DM, Hypertension Patient has suicidal ideation: No Patient has homicidal ideation: No - Past Medical History Cardiac Medical History: Reports: Hx Congestive Heart Failure, Hx Hypertension Denies: Hx Coronary Artery Disease, Hx DVT, Hx Heart Attack, Hx Hypercholesterolemia, Hx Pulmonary Embolism, Hx Heart Murmur Pulmonary Medical History: Reports: Hx Asthma Denies: Hx COPD, Hx Respiratory Failure, Hx Tuberculosis Neurological Medical History: Denies: Hx Seizures Endocrine Medical History: Reports: Hx Diabetes Mellitus Type 2. Denies: Hx Diabetes Mellitus Type 1, Hx Hyperthyroidism, Hx Hypothyroidism Renal/ Medical History: Denies: Hx Peritoneal Dialysis GI Medical History: Denies: Hx Crohn's Disease, Hx Gastroesophageal Reflux Disease, Hx Ulcerative Colitis Musculoskeletal Medical History: Denies Hx Arthritis, Denies Hx Gout Skin Medical History: Denies Hx Eczema, Denies Hx Psoriasis Psychiatric Medical History: Reports: Hx Anxiety, Hx Depression Past Surgical History: Reports: Hx Appendectomy - Immunizations Hx Diphtheria, Pertussis, Tetanus Vaccination: Yes Review of Systems - Review of Systems Constitutional: See HPI EENT: No symptoms reported Cardiovascular: See HPI Respiratory: See HPI Gastrointestinal: No symptoms reported Genitourinary: No symptoms reported Female Genitourinary: No symptoms reported Musculoskeletal: No symptoms reported Skin: No symptoms reported Hematologic/Lymphatic: No symptoms reported Neurological/Psychological: No symptoms reported Physical Exam - Vital signs Vitals: Temp Pulse Resp BP Pulse Ox 98.7 F 107 H 20 189/131 H 96 12/04/18 15:42 12/04/18 15:42 12/04/18 15:42 12/04/18 15:42 12/04/18 15:42 - Notes Notes: GENERAL: Alert, interacts well. No acute distress. HEAD: Normocephalic, atraumatic. EYES: Pupils equal, round, and reactive to light. Extraocular movements intact. ENT: Oral mucosa moist, tongue midline. Oropharynx unremarkable. Airway patent. Nares patent, no nasal septal hematoma, TM's intact. NECK: Full range of motion. Supple. Trachea midline. LUNGS: Clear to auscultation bilaterally, no wheezes, rales, or rhonchi. No respiratory distress. HEART: Regular rate and rhythm. No murmur ABDOMEN: Soft, non-tender. Non-distended. Bowel sounds present in all 4 quadrants. GENITOURINARY: Deferred EXTREMITIES: Moves all 4 extremities spontaneously. Mild bilateral edema, approximately 1+, normal radial and dorsalis pedis pulses bilaterally. No cyanosis. BACK: no cervical, thoracic, lumbar midline tenderness. No saddle anesthesia, normal distal neurovascular exam. Moves all extremities in full range of motion. NEUROLOGICAL: Alert and oriented x3. Normal speech. Cranial nerves II through XII grossly intact. PSYCH: Normal affect, normal mood. SKIN: Warm, dry, normal turgor. No rashes or lesions noted. Course - Re-evaluation Re-evalutation: CBC unremarkable except for chronic anemia with hemoglobin of 8.8. Chemistry unremarkable. Troponin is negative. Chest x-ray showing minimal pulmonary vascular congestion, patient does have slight lower extremity swelling on my evaluation in both legs, however she has no rales on exam, no tachypnea, no complaints of shortness of breath on my evaluation. I laid her flat and she had no difficulty breathing or tachypnea. She was able to ambulate without any difficulty. Patient's blood pressure is elevated, however at this time she is asymptomatic hypertension with no headache, CAT scan was reviewed from triage and this was unremarkable. She also missed her evening dose of clonidine. She was given clonidine, Lasix. I discussed all results with patient and family member. They state that patient's diet has been poor and she is basically only been drinking sodas. They stated they will adjust this, after discussion they state they will follow-up with primary care closely, adjust her diet, and return if she worsens. 12/04/18 21:18 On my re-evaluation at bedside patient's heart rate is 99, pulse ox 96, respira tory rate is 22, blood pressure is 179 systolic. Stable at time of discharge. - Vital Signs Vital signs: Temp Pulse Resp BP Pulse Ox 98.7 F 107 H 20 179/120 H 96 12/04/18 15:42 12/04/18 15:42 12/04/18 22:09 12/04/18 22:01 12/04/18 22:08 - Laboratory Result Diagrams: 12/04/18 16:50 12/04/18 16:50 Laboratory results interpreted by me: 12/04/18 16:50 Hgb 8.8 L Hct 30.3 L MCV 62 L MCH 17.9 L MCHC 29.0 L RDW 20.5 H Band Neutrophils % 1 L Monocytes % (Manual) 2 L Discharge - Discharge Clinical Impression: Essential hypertension, Swelling of both lower extremities Headache Qualifiers: Headache type: unspecified Headache chronicity pattern: acute headache Intractability: not intractable Qualified Code(s): R51 - Headache Condition: Stable Disposition: HOME, SELF-CARE Additional Instructions: The CAT scan of your head is normal. The chest x-ray is possible small amount of fluid on your lungs but I do not hear any on your lung exam, we have given you a dose of Lasix here with her getting IV, improve your diet, continue current medications, and follow-up closely with your primary care provider for additional adjustments including possible additional blood pressure medications. Return if you worsen including difficulty breathing, severe/return headache, vomiting, chest pain, fever, or any other concerning or worsening symptoms. Referrals: TYLER VIVAR MD [Primary Care Provider] - Follow up in 3-5 days
--- NOTE | 2018-12-04 22:10 | EKG REPORT ---
SEVERITY:- ABNORMAL ECG - SINUS RHYTHM RIGHT ATRIAL ABNORMALITY BORDERLINE PROLONGED QT INTERVAL : Confirmed by: Wes Riley 04-Dec-2018 22:09:20
[2018-12-04 22:17] VITALS: BP 179/120
== END 2018-12-04 22:17 | disposition home or self-care (01) ==
LOC: ER 14:59
DX: R51 Headache (principal); R22.43 Localized swelling, mass and lump, lower limb, bilateral; R42 Dizziness and giddiness; I11.0 Hypertensive heart disease with heart failure; I50.9 Heart failure, unspecified; E11.9 Type 2 diabetes mellitus without complications
CPT/HCPCS: 93005; 99284; 96374; 36415; 85025; 80053; 84484; 71046; 70450; 93010; J1940

== ENCOUNTER 2019-04-03 16:28 | Emergency (ER) | payer OTHER ==
--- NOTE | 2019-04-03 17:17 | ER Document Report ---
ED Medical Screen (RME) - General Chief Complaint: Headache Stated Complaint: HEADACHE/ BLOOD PRESSURE ISSUE Time Seen by Provider: 04/03/19 17:13 Primary Care Provider: TYLER VIVAR MD [Primary Care Provider] - Follow up as needed Mode of Arrival: Ambulatory Information source: Patient Notes: 34-year-old female presented to ED for complaint of headache since noon blood pressure this morning was 192/116. She called her primary care doctor they told her to come to the emergency room. While in the emergency room it was 213/121. She does have a history of CHF and high blood pressure. She is on blood pressure medicines that she takes at night. Is alert and oriented respirations regular and unlabored speaking in full sentences. I have greeted and performed a rapid initial assessment of this patient. A comprehensive ED assessment and evaluation of the patient, analysis of test results and completion of medical decision making process will be conducted by an additional ED providers. TRAVEL OUTSIDE OF THE [place] IN LAST 30 DAYS: No - Related Data Allergies/Adverse Reactions: No Known Allergies Allergy (Verified 04/03/19 16:57) Past Medical History - Social History Chew tobacco use (# tins/day): No Frequency of alcohol use: None Drug Abuse: None - Past Medical History Cardiac Medical History: Reports: Hx Congestive Heart Failure, Hx Hypertension Denies: Hx Coronary Artery Disease, Hx DVT, Hx Heart Attack, Hx Hypercholesterolemia, Hx Pulmonary Embolism, Hx Heart Murmur Pulmonary Medical History: Reports: Hx Asthma Denies: Hx COPD, Hx Respiratory Failure, Hx Tuberculosis Neurological Medical History: Denies: Hx Seizures Endocrine Medical History: Reports: Hx Diabetes Mellitus Type 2. Denies: Hx Diabetes Mellitus Type 1, Hx Hyperthyroidism, Hx Hypothyroidism Renal/ Medical History: Denies: Hx Peritoneal Dialysis GI Medical History: Denies: Hx Crohn's Disease, Hx Gastroesophageal Reflux Disease, Hx Ulcerative Colitis Musculoskeltal Medical History: Denies Hx Arthritis, Denies Hx Gout Skin Medical History: Denies Hx Eczema, Denies Hx Psoriasis Psychiatric Medical History: Reports: Hx Anxiety, Hx Depression Past Surgical History: Reports: Hx Appendectomy - Immunizations Hx Diphtheria, Pertussis, Tetanus Vaccination: Yes Physical Exam - Vital signs Vitals: Temp Pulse Resp BP Pulse Ox 98.2 F 62 16 213/121 H 97 04/03/19 16:40 04/03/19 16:40 04/03/19 16:40 04/03/19 16:40 04/03/19 16:40 Course - Vital Signs Vital signs: Temp Pulse Resp BP Pulse Ox 98.2 F 62 16 213/121 H 97 04/03/19 16:40 04/03/19 16:40 04/03/19 16:40 04/03/19 16:40 04/03/19 16:40 Doctor's Discharge - Discharge Referrals: TYLER VIVAR MD [Primary Care Provider] - Follow up as needed
--- NOTE | 2019-04-03 18:00 | RADIOLOGY REPORT (SQ) ---
EXAM DESCRIPTION: CHEST 2 VIEWS COMPLETED DATE/TIME: 04/03/2019 5:27 pm REASON FOR STUDY: chf htn headache COMPARISON: PA and lateral views of the chest from 12/04/2018. EXAM PARAMETERS: NUMBER OF VIEWS: two views TECHNIQUE: Digital Frontal and Lateral radiographic views of the chest acquired. RADIATION DOSE: NA LIMITATIONS: none FINDINGS: LUNGS AND PLEURA: No consolidation, pleural effusion or pneumothorax. MEDIASTINUM AND HILAR STRUCTURES: No mediastinal or hilar contour abnormality. The cardiac silhouett e is enlarged but stable. The pulmonary vasculature is distended. HEART AND VASCULAR STRUCTURES: The cardiac silhouette and pulmonary vasculature are within normal [place] its. BONES: No acute findings. HARDWARE: None. OTHER: No other finding. IMPRESSION: Cardiomegaly and mild CHF. TECHNICAL DOCUMENTATION: JOB ID: [id number] [employer]- All Rights Reserved Reading location - IP/workstation name: [email or web address]
[2019-04-03 18:12] LABS: APPEARANCE,URINE CLEAR; BILIRUBIN,URINE NEGATIVE (NEGATIVE); COLOR,URINE YELLOW; GLUCOSE, URINE NEGATIVE (NEGATIVE); KETONES,URINE NEGATIVE (NEGATIVE); PROTEIN,URINE NEGATIVE (NEGATIVE); UROBILINOGEN,URINE NEGATIVE mg/dL (<2.0)
[2019-04-03] MEDS ORDERED: MAGNESIUM SULFATE/D5W 1 GM/100 ML RTUPB IV ONE (18:13)
[2019-04-03] MEDS ORDERED: HYDRALAZINE HCL INJ/PF 20 MG/1 ML SDV IV ONE (18:13)
[2019-04-03] MEDS ORDERED: METOCLOPRAMIDE HCL INJ/PF 10 MG/2 ML SDV IV ONE (18:13)
[2019-04-03 18:21] LABS: INTERNATIONAL RATION (INR) 0.92; PARTIAL THROMBOPLASTIN TIME 26.2 SEC (23.5-35.8); PROTHROMBIN TIME 12.4 SEC (11.4-15.4)
[2019-04-03 18:24] LABS: HEMATOCRIT 42.2 % (36.0-47.0); HEMOGLOBIN 13.4 g/dL (12.0-15.5); MEAN CORPUSCULAR HEMOGLOBIN 24.3 pg (27.0-33.4); MEAN CORPUSCULAR HGB CONC 31.9 g/dL (32.0-36.0); MEAN CORPUSCULAR VOLUME 76 fl (80-97); PLATELET COUNT 384 10^3/uL (150-450); RED BLOOD COUNT 5.54 10^6/uL (3.72-5.28); RED CELL DISTRIBUTION WIDTH 18.5 % (11.5-14.0); WHITE BLOOD COUNT 6.8 10^3/uL (4.0-10.5)
[2019-04-03 18:53] LABS: ABSOLUTE LYMPHOCYTES# (MANUAL) 2.4 10^3/uL (0.5-4.7); BASOPHILS % (MANUAL) 0 % (0-2); EOSINOPHILS % (MANUAL) 4 % (0-6); LYMPHOCYTES % (MANUAL) 35 % (13-45); MONOCYTES % (MANUAL) 14 % (3-13); SEGMENTED NEUTROPHILS % (MAN) 47 % (42-78); TOTAL CELLS COUNTED 100
[2019-04-03 18:54] LABS: ANISOCYTOSIS 1+; PLATELET COMMENT ADEQUATE
[2019-04-03 19:19] LABS: ALBUMIN 4.6 g/dL (3.5-5.0); ALKALINE PHOSPHATASE 90 U/L (38-126); ANION GAP 11 (5-19); ASPARTATE AMINO TRANSFERASE 27 U/L (14-36); BILIRUBIN,DIRECT 0.2 mg/dL (0.0-0.4); BILIRUBIN,TOTAL 0.4 mg/dL (0.2-1.3); BLOOD UREA NITROGEN 16 mg/dL (7-20); CALCIUM 9.4 mg/dL (8.4-10.2); CARBON DIOXIDE 30 mmol/L (22-30); CHLORIDE 101 mmol/L (98-107); CREATINE KINASE 127 U/L (30-135); GLUCOSE 80 mg/dL (75-110); TOTAL PROTEIN 8.6 g/dL (6.3-8.2)
[2019-04-03 19:37] LABS: CREATINE KINASE MB 0.68 ng/mL (<4.55); NT PRO BNP 467 pg/mL (<125)
[2019-04-03 19:39] LABS: TROPONIN I < 0.012 ng/mL
--- NOTE | 2019-04-03 20:19 | EKG REPORT ---
SEVERITY:- ABNORMAL ECG - SINUS RHYTHM LEFT VENTRICULAR HYPERTROPHY BORDERLINE PROLONGED QT INTERVAL : Confirmed by: Natalee Boyle MD 03-Apr-2019 20:18:12
--- NOTE | 2019-04-03 20:35 | ER Document Report ---
ED General - General Chief Complaint: Headache Stated Complaint: HEADACHE/ BLOOD PRESSURE ISSUE Time Seen by Provider: 04/03/19 17:13 Primary Care Provider: TYLER VIVAR MD [NO LOCAL MD] - Follow up in 3-5 days Mode of Arrival: Ambulatory Notes: Patient is a 34-year-old female with hypertension, CHF and migraines that presents to the emergency department for chief complaint of elevated blood pressure and headache. Patient reports that her blood pressures been more elevated over the past few weeks, but today she started having more of a headache, she does have a history of migraines, but it is a little bit different than her typical migraines. She states that the frontal and extends to the back of her head and is bilateral. It was slow in onset, and not sudden. It is not the worst headache of her life but it is present and constant. She currently rates her headache as a 7 out of 10. She denies having any lightheadedness, dizziness, numbness, tingling or weakness in her extremities, denies any changes in her urinary patterns, denies any frothy or foamy urine. And she denies having any chest pain or shortness of breath at this time. She is on multiple medications for her blood pressure including clonidine, torsemide, metoprolol and lisinopril Of note the patient's parents stated that she has been taking her blood pressure medications all at one time in the evenings because she is trying to do a fasting, and she has been taking all of her clonidine that is prescribed for 1 day at one time in the evening and the same for her other medications that she is supposed to be taking for blood pressure. Past Medical History: CHF, hypertension, migraines Past Surgical History: Denies any recent or pertinent surgical history Social History: Denies tobacco, alcohol or drug use. Family History: Reviewed and noncontributory for presenting illness Allergies: Reviewed, see documented allergy list. REVIEW OF SYSTEMS: Other than noted above, the 12 point review of systems was reviewed with the patient and were negative, all pertinent findings are included in the HPI. PHYSICAL EXAMINATION: Vital signs reviewed, nursing noted reviewed. GENERAL: Obese female, no acute distress HEAD: Atraumatic, normocephalic. EYES: Eyes appear normal, extraocular movements intact, sclera anicteric, conjunctiva are normal. PERRLA ENT: nares patent, oropharynx clear without exudates. Moist mucous membranes. NECK: Normal range of motion, supple without lymphadenopathy LUNGS: Breath sounds clear to auscultation bilaterally and equal. No wheezes rales or rhonchi. HEART: Regular rate and rhythm without murmurs ABDOMEN: Soft, nontender, normoactive bowel sounds. No rebound, guarding, or rigidity. No masses appreciated. EXTREMITIES: Nontender, good range of motion, no pitting or edema. NEUROLOGICAL: No focal neurological deficits. Moves all extremities spontaneously Motor and sensory grossly intact on exam. PSYCH: Normal mood, normal affect. SKIN: Warm, Dry, normal turgor, no rashes or lesions noted on exposed skin TRAVEL OUTSIDE OF THE [place] IN LAST 30 DAYS: No - Related Data Allergies/Adverse Reactions: No Known Allergies Allergy (Verified 04/03/19 16:57) Past Medical History - General Information source: Patient - Social History Smoking Status: Never Smoker Chew tobacco use (# tins/day): No Frequency of alcohol use: None Drug Abuse: None Family History: DM, Hypertension Patient has suicidal ideation: No Patient has homicidal ideation: No - Past Medical History Cardiac Medical History: Reports: Hx Congestive Heart Failure, Hx Hypertension Denies: Hx Coronary Artery Disease, Hx DVT, Hx Heart Attack, Hx Hypercholesterolemia, Hx Pulmonary Embolism, Hx Heart Murmur Pulmonary Medical History: Reports: Hx Asthma Denies: Hx COPD, Hx Respiratory Failure, Hx Tuberculosis Neurological Medical History: Denies: Hx Seizures Endocrine Medical History: Reports: Hx Diabetes Mellitus Type 2. Denies: Hx Diabetes Mellitus Type 1, Hx Hyperthyroidism, Hx Hypothyroidism Renal/ Medical History: Denies: Hx Peritoneal Dialysis GI Medical History: Denies: Hx Crohn's Disease, Hx Gastroesophageal Reflux Disease, Hx Ulcerative Colitis Musculoskeletal Medical History: Denies Hx Arthritis, Denies Hx Gout Skin Medical History: Denies Hx Eczema, Denies Hx Psoriasis Psychiatric Medical History: Reports: Hx Anxiety, Hx Depression Past Surgical History: Reports: Hx Appendectomy - Immunizations Hx Diphtheria, Pertussis, Tetanus Vaccination: Yes Physical Exam - Vital signs Vitals: Temp Pulse Resp BP Pulse Ox 98.2 F 62 16 213/121 H 97 04/03/19 16:40 04/03/19 16:40 04/03/19 16:40 04/03/19 16:40 04/03/19 16:40 Course - Re-evaluation Re-evalutation: patient seen and examined vital signs reviewed. Laboratory data and/or imaging were ordered as appropriate for the patient's presenting symptoms and complaint, with consideration of any critical or life threatening conditions that may be associated with their obtained history and exam as noted above. Patient was treated with hydralazine for her headache as well as Reglan and IV magnesium Results were reviewed when available and demonstrated unremarkable blood work, stable from her baseline labs The patient was re-evaluated and was stable and improved, headache was essentially resolved Evaluation was most consistent with hypertensive urgency and headache, her blood pressure improved, I discussed with the patient at length that she needs to take her medications as prescribed and I highly advised she does not take them all at one time as this can have adverse effects to her blood pressure and multiple organ systems, patient understood this and I explained this to the patient's parents as well. Results were discussed with the patient at this point, after careful consideration I feel that that patient can be discharged from the emergency department, the patient was educated treatments and reasons to return to the emergency department based on their presumed diagnosis as noted above, they were advised to followup with a primary care physician in 2-3 days. Patient was agreeable to plan of care. *Note is created using voice recognition software and may contain spelling, syntax or grammatical errors. Laboratory 04/03/19 04/03/19 04/03/19 17:05 17:50 17:50 WBC 6.8 RBC 5.54 H Hgb 13.4 Hct 42.2 MCV 76 L MCH 24.3 L MCHC 31.9 L RDW 18.5 H Plt Count 384 Lymph % (Auto) Not Reportable Logan % (Auto) Not Reportable Eos % (Auto) Not Reportable Baso % (Auto) Not Reportable Absolute Neuts (auto) Not Reportable Absolute Lymphs (auto) Not Reportable Absolute Monos (auto) Not Reportable Absolute Eos (auto) Not Reportable Absolute Basos (auto) Not Reportable Total Counted 100 Seg Neutrophils % Not Reportable Seg Neuts % (Manual) 47 Lymphocytes % (Manual) 35 Monocytes % (Manual) 14 H Eosinophils % (Manual) 4 Basophils % (Manual) 0 Abs Neuts (Manual) 3.2 Abs Lymphs (Manual) 2.4 Abs Monocytes (Manual) 1.0 Absolute Eos (Manual) 0.3 Abs Basophils (Manual) 0.0 Platelet Comment ADEQUATE Anisocytosis 1+ Microcytosis SLIGHT PT 12.4 INR 0.92 APTT 26.2 Sodium Potassium Chloride Carbon Dioxide Anion Gap BUN Creatinine Est GFR ( Amer) Est GFR (Non-Af Amer) Est GFR (MDRD) Non-Af Glucose Calcium Total Bilirubin Direct Bilirubin Neonat Total Bilirubin Neonat Direct Bilirubin Neonat Indirect Bili AST ALT Alkaline Phosphatase Creatine Kinase CK-MB (CK-2) Troponin I NT-Pro-B Natriuret Pep Total Protein Albumin EGFR Urine Color YELLOW Urine Appearance CLEAR Urine pH 6.0 Ur Specific Lorida 1.010 Urine Protein NEGATIVE Urine Glucose (UA) NEGATIVE Urine Ketones NEGATIVE Urine Blood MODERATE H Urine Nitrite (Reflex) NEGATIVE Urine Bilirubin NEGATIVE Urine Urobilinogen NEGATIVE Leukocyte Esterase Rfl NEGATIVE Urine RBC (Auto) 1 U Hyaline Cast (Auto) 1 Urine Bacteria (Auto) TRACE Urine WBC (Reflex) 1 Squamous Epi Cells Auto 2 Urine Ascorbic Acid NEGATIVE 04/03/19 04/03/19 04/03/19 17:50 17:50 18:36 WBC RBC Hgb Hct MCV MCH MCHC RDW Plt Count Lymph % (Auto) Logan % (Auto) Eos % (Auto) Baso % (Auto) Absolute Neuts (auto) Absolute Lymphs (auto) Absolute Monos (auto) Absolute Eos (auto) Absolute Basos (auto) Total Counted Seg Neutrophils % Seg Neuts % (Manual) Lymphocytes % (Manual) Monocytes % (Manual) Eosinophils % (Manual) Basophils % (Manual) Abs Neuts (Manual) Abs Lymphs (Manual) Abs Monocytes (Manual) Absolute Eos (Manual) Abs Basophils (Manual) Platelet Comment Anisocytosis Microcytosis PT INR APTT Sodium Cancelled Potassium Cancelled Chloride Cancelled Carbon Dioxide Cancelled Anion Gap Cancelled BUN Cancelled Creatinine Cancelled Est GFR ( Amer) Cancelled Est GFR (Non-Af Amer) Cancelled Est GFR (MDRD) Non-Af Cancelled Glucose Cancelled Calcium Cancelled Total Bilirubin Cancelled Direct Bilirubin Cancelled Neonat Total Bilirubin Cancelled Neonat Direct Bilirubin Cancelled Neonat Indirect Bili Cancelled AST Cancelled ALT Cancelled Alkaline Phosphatase Cancelled Creatine Kinase Cancelled CK-MB (CK-2) Cancelled 0.68 Troponin I Cancelled < 0.012 NT-Pro-B Natriuret Pep Cancelled 467 H Total Protein Cancelled Albumin Cancelled EGFR Cancelled Urine Color Urine Appearance Urine pH Ur Specific Lorida Urine Protein Urine Glucose (UA) Urine Ketones Urine Blood Urine Nitrite (Reflex) Urine Bilirubin Urine Urobilinogen Leukocyte Esterase Rfl Urine RBC (Auto) U Hyaline Cast (Auto) Urine Bacteria (Auto) Urine WBC (Reflex) Squamous Epi Cells Auto Urine Ascorbic Acid 04/03/19 18:36 WBC RBC Hgb Hct MCV MCH MCHC RDW Plt Count Lymph % (Auto) Logan % (Auto) Eos % (Auto) Baso % (Auto) Absolute Neuts (auto) Absolute Lymphs (auto) Absolute Monos (auto) Absolute Eos (auto) Absolute Basos (auto) Total Counted Seg Neutrophils % Seg Neuts % (Manual) Lymphocytes % (Manual) Monocytes % (Manual) Eosinophils % (Manual) Basophils % (Manual) Abs Neuts (Manual) Abs Lymphs (Manual) Abs Monocytes (Manual) Absolute Eos (Manual) Abs Basophils (Manual) Platelet Comment Anisocytosis Microcytosis PT INR APTT Sodium 142.4 Potassium 4.0 Chloride 101 Carbon Dioxide 30 Anion Gap 11 BUN 16 Creatinine 0.99 Est GFR ( Amer) > 60 Est GFR (Non-Af Amer) Est GFR (MDRD) Non-Af > 60 Glucose 80 Calcium 9.4 Total Bilirubin 0.4 Direct Bilirubin 0.2 Neonat Total Bilirubin Not Reportable Neonat Direct Bilirubin Not Reportable Neonat Indirect Bili Not Reportable AST 27 ALT 23 Alkaline Phosphatase 90 Creatine Kinase 127 CK-MB (CK-2) Troponin I NT-Pro-B Natriuret Pep Total Protein 8.6 H Albumin 4.6 EGFR Urine Color Urine Appearance Urine pH Ur Specific Lorida Urine Protein Urine Glucose (UA) Urine Ketones Urine Blood Urine Nitrite (Reflex) Urine Bilirubin Urine Urobilinogen Leukocyte Esterase Rfl Urine RBC (Auto) U Hyaline Cast (Auto) Urine Bacteria (Auto) Urine WBC (Reflex) Squamous Epi Cells Auto Urine Ascorbic Acid Chest X-Ray 04/03/19 17:15 IMPRESSION: Cardiomegaly and mild CHF. - Vital Signs Vital signs: Temp Pulse Resp BP Pulse Ox 98.2 F 62 15 128/67 H 98 04/03/19 20:05 04/03/19 16:40 04/03/19 20:05 04/03/19 20:05 04/03/19 20:05 - Laboratory Result Diagrams: 04/03/19 17:50 04/03/19 18:36 Laboratory results interpreted by me: 04/03/19 04/03/19 04/03/19 17:05 17:50 18:36 RBC 5.54 H MCV 76 L MCH 24.3 L MCHC 31.9 L RDW 18.5 H Monocytes % (Manual) 14 H NT-Pro-B Natriuret Pep 467 H Total Protein Urine Blood MODERATE H 04/03/19 18:36 RBC MCV MCH MCHC RDW Monocytes % (Manual) NT-Pro-B Natriuret Pep Total Protein 8.6 H Urine Blood - EKG Interpretation by Me Additional EKG results interpreted by me: EKG demonstrates sinus rhythm with a ventricular rate of 64 bpm, normal axis, QTC 487 ms, voltage criteria for LVH, no ST elevation. Discharge - Discharge Clinical Impression: HTN (hypertension) Qualifiers: Hypertension type: unspecified Qualified Code(s): I10 - Essential (primary) hypertension Headache Qualifiers: Headache type: unspecified Headache chronicity pattern: unspecified pattern Intractability: not intractable Qualified Code(s): R51 - Headache Condition: Stable Disposition: HOME, SELF-CARE Instructions: High Blood Pressure, Requiring Treatment ([facility]) Additional Instructions: Please take your blood pressure medications as prescribed, do not take them all at one time as this can have significant adverse effects on your blood pressure and on your kidneys and liver. [facility]. Referrals: TYLER VIVAR MD [NO LOCAL MD] - Follow up in 3-5 days
[2019-04-03 20:40] VITALS: BP 128/67
== END 2019-04-03 20:46 | disposition home or self-care (01) ==
LOC: ER 16:28
DX: R51 Headache (principal); I51.7 Cardiomegaly; I11.0 Hypertensive heart disease with heart failure; I50.9 Heart failure, unspecified; E11.9 Type 2 diabetes mellitus without complications; E66.9 Obesity, unspecified
CPT/HCPCS: 93005; 99284; 96375; 96365; 36415; 82553; 82550; 85025; 85610; 85730; 80053; 81001; 84484; 83880; 71046; 93010; J0360; J2765; J3475

== ENCOUNTER 2020-04-13 12:13 | Inpatient (IN) | payer OTHER ==
--- NOTE | 2020-04-13 12:25 | ER Document Report ---
ED Medical Screen (RME) - General Chief Complaint: Blood Pressure Problem Stated Complaint: COUGH/BLOOD PRESSURE PROBLEM Time Seen by Provider: 04/13/20 12:18 Primary Care Provider: KAM,MANNY [Primary Care Provider] - Follow up as needed Mode of Arrival: Ambulatory Notes: Patient presents complaining of shortness of breath for the past 2 weeks. Patient states cough has been off and on for the past 2 weeks as well. Patient denies any fever or chest pain. Patient does complain of lower extremity swelling. Patient does not weigh herself daily. Patient has a history of hypertension and congestive heart failure. Patient reports poor control of her blood pressure despite taking her blood pressure medications this morning including clonidine, lisinopril, metoprolol and hydralazine. I have greeted and performed a rapid initial assessment of this patient. A comprehensive ED assessment and evaluation of the patient, analysis of test results and completion of the medical decision making process will be conducted by additional ED providers. TRAVEL OUTSIDE OF THE [place] IN LAST 30 DAYS: No - Related Data Allergies/Adverse Reactions: No Known Allergies Allergy (Verified 04/03/19 16:57) Past Medical History - Past Medical History Cardiac Medical History: Reports: Hx Congestive Heart Failure, Hx Hypertension Denies: Hx Coronary Artery Disease, Hx DVT, Hx Heart Attack, Hx Hypercholesterolemia, Hx Pulmonary Embolism, Hx Heart Murmur Pulmonary Medical History: Reports: Hx Asthma Denies: Hx COPD, Hx Respiratory Failure, Hx Tuberculosis Neurological Medical History: Denies: Hx Seizures Endocrine Medical History: Reports: Hx Diabetes Mellitus Type 2. Denies: Hx Diabetes Mellitus Type 1, Hx Hyperthyroidism, Hx Hypothyroidism Renal/ Medical History: Denies: Hx Peritoneal Dialysis GI Medical History: Denies: Hx Crohn's Disease, Hx Gastroesophageal Reflux Disease, Hx Ulcerative Colitis Musculoskeltal Medical History: Denies Hx Arthritis, Denies Hx Gout Skin Medical History: Denies Hx Eczema, Denies Hx Psoriasis Psychiatric Medical History: Reports: Hx Anxiety, Hx Depression Past Surgical History: Reports: Hx Appendectomy - Immunizations Hx Diphtheria, Pertussis, Tetanus Vaccination: Yes Physical Exam - Vital signs Vitals: Temp Pulse Resp BP Pulse Ox 98.7 F 125 H 22 H 208/134 H 90 L 04/13/20 12:19 04/13/20 12:19 04/13/20 12:19 04/13/20 12:19 04/13/20 12:19 - Respiratory Respiratory status: Tachypnea Breath sounds: Nonproductive cough, Other - Diminished bilaterally - Cardiovascular Rhythm: Tachycardia Heart sounds: S1 appreciated, S2 appreciated Course - Vital Signs Vital signs: Temp Pulse Resp BP Pulse Ox 98.7 F 125 H 22 H 208/134 H 90 L 04/13/20 12:19 04/13/20 12:19 04/13/20 12:19 04/13/20 12:19 04/13/20 12:19 Doctor's Discharge - Discharge [facility]errals: [facility] [[facility] - Follow up as needed
[2020-04-13 13:23] LABS: ABSOLUTE BASOPHILS # (AUTO) 0.1 10^3/uL (0.0-0.2); ABSOLUTE EOSINOPHILS # (AUTO) 0.2 10^3/uL (0.0-0.6); ABSOLUTE LYMPHOCYTES (AUTO) 2.4 10^3/uL (0.5-4.7); ABSOLUTE MONOCYTES (AUTO) 0.7 10^3/uL (0.1-1.4); BASOPHILS % (AUTO) 1.4 % (0-2); EOSINOPHILS % (AUTO) 2.5 % (0-6); HEMATOCRIT 29.9 % (36.0-47.0); HEMOGLOBIN 8.7 g/dL (12.0-15.5); MEAN CORPUSCULAR HEMOGLOBIN 19.1 pg (27.0-33.4); MEAN CORPUSCULAR HGB CONC 29.2 g/dL (32.0-36.0); MEAN CORPUSCULAR VOLUME 65 fl (80-97); MONOCYTES % (AUTO) 7.8 % (3-13); PLATELET COUNT 379 10^3/uL (150-450); RED BLOOD COUNT 4.57 10^6/uL (3.72-5.28); RED CELL DISTRIBUTION WIDTH 20.5 % (11.5-14.0); SEGMENTED NEUTROPHILS % (AUTO) 63.3 % (42-78); TOTAL CELLS COUNTED % (AUTO) 100 %; WHITE BLOOD COUNT 9.4 10^3/uL (4.0-10.5)
--- NOTE | 2020-04-13 13:32 | RADIOLOGY REPORT (SQ) ---
EXAM DESCRIPTION: CHEST SINGLE VIEW IMAGES COMPLETED DATE/TIME: 04/13/2020 1:20 pm REASON FOR STUDY: cough, sob COMPARISON: 04/03/2019 EXAM PARAMETERS: NUMBER OF VIEWS: One view. TECHNIQUE: Single frontal radiographic view of the chest acquired. RADIATION DOSE: NA LIMITATIONS: None. FINDINGS: LUNGS AND PLEURA: No opacities, masses or pneumothorax. No pleural effusion. MEDIASTINUM AND HILAR STRUCTURES: No masses. Contour normal. HEART AND VASCULAR STRUCTURES: Cardiomegaly. No jessee pulmonary edema. BONES: No acute findings. HARDWARE: None in the chest. OTHER: No other significant finding. IMPRESSION: Cardiomegaly with no jessee pulmonary edema. TECHNICAL DOCUMENTATION: JOB ID: [id number] 2010 [employer]- All Rights Reserved Reading location - IP/workstation name: [email or web address]
--- NOTE | 2020-04-13 13:43 | ER Document Report ---
ED Respiratory Problem - General Chief Complaint: Shortness Of Breath Stated Complaint: COUGH/BLOOD PRESSURE PROBLEM Time Seen by Provider: 04/13/20 12:18 Primary Care Provider: MANNY HUMPHREY [Primary Care Provider] - Follow up as needed Mode of Arrival: Ambulatory Information source: Patient Notes: This 35-year-old woman presents to the emergency department with a 2-week history of shortness of breath and cough. She has a history of congestive heart failure in the past. She states that she is an increased swelling in the lower extremities with dyspnea on exertion. Denies chest pain, palpitations, or nausea and vomiting, diaphoresis. Denies fever or productive cough, she also denies exposure to known positive coronavirus individual. She has come to the emergency department because she is also noted that her heart is beating rapidly and she has been feeling weak. Patient also notes that the blood pressure has been elevated, she has been taking her blood pressure medications as prescribed. TRAVEL OUTSIDE OF THE [place] IN LAST 30 DAYS: No - Related Data Allergies/Adverse Reactions: No Known Allergies Allergy (Verified 04/03/19 16:57) Past Medical History - Social History Smoking Status: Unknown if Ever Smoked Family History: DM, Hypertension Patient has homicidal ideation: No - Past Medical History Cardiac Medical History: Reports: Hx Congestive Heart Failure, Hx Hypertension Denies: Hx Coronary Artery Disease, Hx DVT, Hx Heart Attack, Hx Hypercholesterolemia, Hx Pulmonary Embolism, Hx Heart Murmur Pulmonary Medical History: Reports: Hx Asthma Denies: Hx COPD, Hx Respiratory Failure, Hx Tuberculosis Neurological Medical History: Denies: Hx Seizures Endocrine Medical History: Reports: Hx Diabetes Mellitus Type 2. Denies: Hx Diabetes Mellitus Type 1, Hx Hyperthyroidism, Hx Hypothyroidism Renal/ Medical History: Denies: Hx Peritoneal Dialysis GI Medical History: Denies: Hx Crohn's Disease, Hx Gastroesophageal Reflux Disease, Hx Ulcerative Colitis Musculoskeletal Medical History: Denies Hx Arthritis, Denies Hx Gout Skin Medical History: Denies Hx Eczema, Denies Hx Psoriasis Psychiatric Medical History: Reports: Hx Anxiety, Hx Depression Past Surgical History: Reports: Hx Appendectomy - Immunizations Hx Diphtheria, Pertussis, Tetanus Vaccination: Yes Review of Systems - Review of Systems Notes: Constitutional: Negative for fever. HENT: Negative for sore throat. Eyes: Negative for visual changes. Cardiovascular: See HPI Respiratory: See HPI Gastrointestinal: Negative for abdominal pain, vomiting or diarrhea. Genitourinary: Negative for dysuria. Musculoskeletal: Negative for back pain. Skin: Negative for rash. Neurological: Negative for headaches, weakness or numbness. 10 point ROS negative except as marked above and in HPI. Physical Exam - Vital signs Vitals: Temp Pulse Resp BP Pulse Ox 98.7 F 125 H 22 H 208/134 H 90 L 04/13/20 12:19 04/13/20 12:19 04/13/20 12:19 04/13/20 12:19 04/13/20 12:19 - Notes Notes: PHYSICAL EXAMINATION: Physical Exam: General: Well-nourished well-developed 35-year-old female in no acute distress HEENT: NC/AT, pupils equal round and reactive to light, MM moist,nares clear, oropharynx clear, airway patent Neck: supple, no adenopathy, no masses. Good range of motion Lungs: clear, no wheezing, no rales no rhonchi CVS: Tachycardic rate and rhythm no murmur gallop or rub Abdomen: Soft, active, nontender, no masses, no hepatosplenomegaly Ext: 2+ edema lower extremities bilaterally Neuro: Alert and responsive, moving all 4 extremities on command, cranial nerves intact, no focal findings Skin: Intact no open lesions, no rash Course - Re-evaluation Re-evalutation: 04/13/20 13:41 Differential diagnosis CHF, pulmonary embolus, electrolyte imbalance, infection, malignant hypertension 04/13/20 13:42 04/13/20 15:57 I discussed the findings of the labs, EKG and x-rays with the patient and explained that she will need to come into the hospital for further management. The patient is in agreement with hospitalization. I have contacted the hospitalist, Cheryl Pompa NP, will see patient and admit for the hospitalist service. - Vital Signs Vital signs: Temp Pulse Resp BP Pulse Ox 98.7 F 125 H 23 H 186/135 H 95 04/13/20 12:55 04/13/20 12:19 04/13/20 12:54 04/13/20 12:54 04/13/20 13:00 - Laboratory Result Diagrams: 04/13/20 12:50 04/13/20 12:50 Laboratory results interpreted by me: 04/13/20 04/13/20 04/13/20 12:50 12:50 12:50 Hgb 8.7 L Hct 29.9 L MCV 65 L MCH 19.1 L MCHC 29.2 L RDW 20.5 H AST 46 H NT-Pro-B Natriuret Pep 1080 H Albumin 3.4 L - Diagnostic Test Radiology reviewed: Image reviewed, Reports reviewed Radiology results interpreted by me: 04/13/20 14:58 Chest X-Ray 04/13/20 12:24 IMPRESSION: Cardiomegaly with no jessee pulmonary edema. 04/13/20 15:27 Chest X-Ray 04/13/20 12:24 IMPRESSION: Cardiomegaly with no jessee pulmonary edema. Chest/Abdomen CTA 04/13/20 14:24 IMPRESSION: 1. NORMAL CTA OF THE CHEST. NO PULMONARY EMBOLI. 2. CARDIOMEGALY WITH FAINT HAZY GROUND-GLASS OPACITIES SCATTERED THROUGHOUT BOTH LUNGS. PROBABLY DUE TO DEVELOPING PULMONARY EDEMA. PNEUMONITIS OR INFECTIOUS ETIOLOGY LESS LIKELY BUT NOT EXCLUDED. 3. PROBABLE ANTERIOR ABDOMINAL WALL HERNIA, NOT COMPLETELY IMAGED. - EKG Interpretation by Me Rate: Tachycardia - EKG interpreted by Dr. Mckoy: Sinus tachycardia, rate 111, FL interval 160 ms QT interval 348 ms, normal axis, borderline T wave abnorm alities lateral leads, no ST or T wave findings suggestive of ischemia., compared to EKG dated 04/03/2019 EKG criteria for LVH and borderline prolongation of QT is no longer present., Interpretation Abnormal EKG Critical Care Note - Critical Care Note Total time excluding time spent on procedures (mins): 60 - Critical care time sp ent obtaining history from patient or surrogate, discussions with consultants, development of treatment plan with patient or surrogate, evaluation of patient's response to treatment, examination of patient, ordering and performing treatments and interventions, ordering and review of laboratory studies, re- evaluation of patient's condition, ordering and review of radiographic studies and review of old charts Discharge - Discharge Clinical Impression: Malignant hypertension, Edema of both lower extremities, Morbid obesity CHF (congestive heart failure) Qualifiers: Heart failure type: unspecified Heart failure chronicity: acute on chronic Qualified Code(s): I50.9 - Heart failure, unspecified Condition: Good Disposition: ADMITTED INPATIENT Admitting Provider: Mehran (Hospitalist) Unit Admitted: [facility] [[facility] - Follow up as needed
[2020-04-13 13:48] LABS: ALBUMIN 3.4 g/dL (3.5-5.0); ALKALINE PHOSPHATASE 68 U/L (38-126); ANION GAP 6 (5-19); ASPARTATE AMINO TRANSFERASE 46 U/L (14-36); BILIRUBIN,DIRECT 0.1 mg/dL (0.0-0.4); BILIRUBIN,TOTAL 0.4 mg/dL (0.2-1.3); BLOOD UREA NITROGEN 11 mg/dL (7-20); CALCIUM 8.5 mg/dL (8.4-10.2); CARBON DIOXIDE 29 mmol/L (22-30); CHLORIDE 106 mmol/L (98-107); GLUCOSE 104 mg/dL (75-110); POTASSIUM 4.1 mmol/L (3.6-5.0); TOTAL PROTEIN 6.5 g/dL (6.3-8.2)
[2020-04-13] MEDS ORDERED: LABETALOL HCL INJ 20 MG/4 ML DISP.SYRIN IV ONE (13:54)
[2020-04-13 13:55] LABS: TROPONIN I 0.02 ng/mL
[2020-04-13] MEDS ORDERED: FUROSEMIDE INJ/PF 40 MG/4 ML SDV IV ONE (13:55)
--- NOTE | 2020-04-13 15:20 | RADIOLOGY REPORT (SQ) ---
EXAM DESCRIPTION: CTA CHEST IMAGES COMPLETED DATE/TIME: 04/13/2020 2:57 pm REASON FOR STUDY: Shortness of breath COMPARISON: None. TECHNIQUE: CT scan of the chest performed using helical scanning technique with dynamic intravenous contrast injection. Images reviewed with lung, soft tissue and bone windows. Reconstructed coronal and sagittal MPR images reviewed. Additional 3 dimensional post-processing performed to develop Maximal Intensity Projection images ([place] P). All images stored on PACS. All CT scanners at this facility use dose modulation, iterative reconstruction, and/or weight based d osing when appropriate to reduce radiation dose to as low as reasonably achievable (ALARA). [facility]: Dose Right [facility]: CareDose [facility]: Dose Right [facility]: Teradose 4D [facility]: Apsalar CONTRAST TYPE AND DOSE: contrast/concentration: Isovue 350.00 mmol/ml; Total Contrast Delivered: 75. 0 ml; Total Saline Delivered: 65.1 ml Contrast bolus adequate for pulmonary arteries and aorta. RENAL FUNCTION: BUN 11 creatinine 0.74. RADIATION DOSE: CT Rad equipment meets quality standard of care and radiation dose reduction techniq ues were employed. CTDIvol: 26.4 - 39.8 mGy. DLP: 1521 mGy-cm. . LIMITATIONS: None. FINDINGS: LUNGS AND PLEURA: Faint hazy ground-glass opacity scattered throughout both lungs. No mas ses, lobar infiltrates, or pneumothorax. No pleural effusions or pleural calcifications. AORTA AND GREAT VESSELS: No aneurysm. No dissection. HEART: Cardiomegaly. No pericardial effusion. No significant coronary artery calcifications. PULMONARY ARTERIES: No emboli visualized in the main pulmonary arteries or the segmental branches. HILAR AND MEDIASTINAL STRUCTURES: No identified masses or abnormal nodes. HARDWARE: None in the chest. UPPER ABDOMEN: Fluid collection in the lower anterior abdominal wall on the most inferior scan images . This appears to be due to an abdominal wall hernia not fully imaged. No other significant finding s. Limited exam. THYROID AND OTHER SOFT TISSUES: No masses. No adenopathy. BONES: No acute or significant finding. 3D MIPS: Confirm above findings. OTHER: No other significant finding. IMPRESSION: 1. NORMAL CTA OF THE CHEST. NO PULMONARY EMBOLI. 2. CARDIOMEGALY WITH FAINT HAZY GROUND-GLASS OPACITIES SCATTERED THROUGHOUT BOTH LUNGS. PROBABLY DUE TO DEVELOPING PULMONARY EDEMA. PNEUMONITIS OR INFECTIOUS ETIOLOGY LESS LIKELY BUT NOT EXCLUDED. 3. PROBABLE ANTERIOR ABDOMINAL WALL HERNIA, NOT COMPLETELY IMAGED. COMMENT: Quality ID # [id number]: Final reports with documentation of one or more dose reduction techniques (e.g., Automated exposure control, adjustment of the mA and/or kV according to patient size, use of iterative reconstruction technique) TECHNICAL DOCUMENTATION: JOB ID: [id number] 2010 [employer]- All Rights Reserved Reading location - IP/workstation name: [email or web address]
[2020-04-13] MEDS ORDERED: ACETAMINOPHEN 325 MG TABLET PO PRN (17:03)
[2020-04-13] MEDS ORDERED: MAG HYDROX/AL HYDROX/SIMETH SUSP 30 ML UDCUP PO PRN (17:23)
[2020-04-13] MEDS ORDERED: PROMETHAZINE HCL INJ 25 MG/1 ML VIAL IV PRN (17:23)
[2020-04-13] MEDS ORDERED: LABETALOL HCL INJ 20 MG/4 ML DISP.SYRIN IV PRN (17:25)
--- NOTE | 2020-04-13 17:42 | PDOC H&P ---
History of Present Illness Admission Date/PCP: 04/13/20 16:17 [facility] Patient complains of: orthopnea, leg swelling History of Present Illness: AXEL WELLS is a 35 year old female with a past medical history of combined systolic/diastolic CHF, pulmonary hypertension, hypertension, DM 2, and super morbid obesity who presented to the emergency department today with a complaint of 2 weeks of progressively worsening dyspnea on exertion, orthopnea, productive cough, fatigue, and bilateral lower extremity edema. Evaluation in the emergency department revealed hypertensive urgency with initial blood pressure 208/134; improved to 182/133 following IV labetalol and furosemide. She is also noted to have tachycardia (HR 119), tachypnea (RR 41), mild hypoxia (SPO2 90% on room air), baseline anemia (hemoglobin 8.7, hematocrit 29.9), and unremarkable chemistry other than a proBNP of 1080 (baseline approximately 500). CTA chest demonstrated cardiomegaly with faint groundglass opacities scattered throughout bilateral lungs; possible developing pulmonary edema versus pneumonitis or infectious etiology. She is referred to the hospitalist service for further evaluation management of the above stated complaints and findings. Past Medical History Cardiac Medical History: Reports: Congestive Heart Failure, Hypertension Denies: Atrial Fibrillation, Coronary Artery Disease, Myocardial Infarction Pulmonary Medical History: Reports: Asthma Denies: Chronic Obstructive Pulmonary Disease (COPD), Respiratory Failure EENT Medical History: Reports: None Neurological Medical History: Reports: None Endocrine Medical History: Reports: Diabetes Mellitus Type 2, Obesity Denies: Hypothyroidism Renal/ Medical History: Reports: None Malignancy Medical History: Reports: None GI Medical History: Denies: Crohn's Disease, Gastroesophageal Reflux Disease, Ulcerative Colitis Musculoskeltal Medical History: Reports: None Skin Medical History: Reports: None Psychiatric Medical History: Reports: Depression Hematology: Reports: Anemia Denies: Sickle Cell Disease, Bleeding Tendencies Infectious Medical History: Reports: None Past Surgical History Past Surgical History: Reports: Appendectomy Social History Information Source: Patient Lives with: Family Smoking Status: Never Smoker Electronic Cigarette use?: No Frequency of Alcohol Use: None Hx Recreational Drug Use: No Drugs: None Hx Prescription Drug Abuse: No - Advance Directive Resuscitation Status: Full Code Family History Family History: DM, Hypertension Parental Family History Reviewed: Yes Children Family History Reviewed: Yes Sibling(s) Family History Reviewed.: Yes Medication/Allergy Home Medications: Albuterol Sulfate [Proair HFA Inhalation Aerosol 8.5 gm MDI] 2 puff IH Q6HP PRN 11/12/18 Aspirin [Ecotrin 81 mg EC Tablet] 81 mg PO DAILY 11/12/18 Ferrous Sulfate [Feosol 325 mg Tablet] 325 mg PO DAILY 11/12/18 Ipratropium Saffell [Atrovent Hfa] 2 puff IH QID 11/12/18 Metoprolol Succinate [Toprol Xl] 200 mg PO Q12 11/12/18 Paroxetine HCl [Paxil 20 mg Tablet] 20 mg PO DAILY 11/12/18 Spironolactone [Aldactone 25 mg Tablet] 25 mg PO DAILY 11/12/18 Topiramate [Topamax 25 mg Tablet] 25 mg PO BID 11/12/18 Torsemide [Demadex 20 mg Tablet] 40 mg PO DAILY 11/12/18 Acetaminophen [Tylenol 325 mg Tablet] 650 mg PO Q4HP PRN tablet 11/14/18 Meclizine HCl [Antivert 12.5 mg Tablet] 12.5 mg PO Q8HP PRN #30 tablet 11/14/18 Prednisone [Deltasone 20 mg Tablet] 20 mg PO ASDIR PRN #20 tablet 11/14/18 Sacubitril/Valsartan [Entresto 24 mg/26 mg Tablet] 1 tab PO BID #60 tablet 11/14/18 Allergies/Adverse Reactions: No Known Allergies Allergy (Verified 04/03/19 16:57) Review of Systems Constitutional: PRESENT: fatigue, weight gain. ABSENT: chills, fever(s), headache(s), weight loss Eyes: ABSENT: visual disturbances Ears: ABSENT: hearing changes Cardiovascular: PRESENT: dyspnea on exertion, edema, orthropnea. ABSENT: chest pain, palpitations Respiratory: PRESENT: cough. ABSENT: hemoptysis Gastrointestinal: ABSENT: abdominal pain, constipation, diarrhea, hematemesis, hematochezia, nausea, vomiting Genitourinary: ABSENT: dysuria, hematuria Musculoskeletal: ABSENT: joint swelling Integumentary: ABSENT: rash, wounds Neurological: ABSENT: abnormal gait, abnormal speech, confusion, dizziness, focal weakness, syncope Psychiatric: ABSENT: anxiety, depression, homidical ideation, suicidal ideation Endocrine: ABSENT: cold intolerance, heat intolerance, polydipsia, polyuria Hematologic/Lymphatic: ABSENT: easy bleeding, easy bruising Physical Exam Vital Signs: Temp Pulse Resp BP Pulse Ox 98.7 F 125 H 18 182/133 H 93 04/13/20 12:55 04/13/20 12:19 04/13/20 16:01 04/13/20 16:01 04/13/20 16:00 Intake & Output 04/12/20 04/13/20 04/14/20 06:59 06:59 06:59 Weight 143.8 kg General appearance: PRESENT: no acute distress, cooperative, morbidly obese, well-developed, well-nourished Head exam: PRESENT: atraumatic, normocephalic Eye exam: PRESENT: conjunctiva pink, EOMI, PERRLA. ABSENT: scleral icterus Mouth exam: PRESENT: moist, tongue midline Neck exam: ABSENT: carotid bruit, JVD, lymphadenopathy, thyromegaly Respiratory exam: PRESENT: clear to auscultation carolynn, decreased breath sounds - diminished throughout r/t body habitus and poor effort, symmetrical, unlabored, other - room air. ABSENT: rales, rhonchi, wheezes Cardiovascular exam: PRESENT: RRR. ABSENT: diastolic murmur, rubs, systolic murmur Pulses: PRESENT: normal dorsalis pedis pul Vascular exam: PRESENT: normal capillary refill GI/Abdominal exam: PRESENT: normal bowel sounds, soft. ABSENT: distended, guarding, mass, organolmegaly, rebound, tenderness Rectal exam: PRESENT: deferred Extremities exam: PRESENT: full ROM, +1 edema - pitting BLE. ABSENT: calf tenderness, clubbing, pedal edema Neurological exam: PRESENT: alert, awake, oriented to person, oriented to place, oriented to time, oriented to situation, CN II-XII grossly intact. ABSENT: motor sensory deficit Psychiatric exam: PRESENT: flat affect, normal mood. ABSENT: homicidal ideation, suicidal ideation Skin exam: PRESENT: dry, intact, warm. ABSENT: cyanosis, rash Results Laboratory Results: 04/13/20 12:50 04/13/20 12:50 04/13/20 04/13/20 04/13/20 12:50 12:50 12:50 WBC 9.4 RBC 4.57 Hgb 8.7 L Hct 29.9 L MCV 65 L MCH 19.1 L MCHC 29.2 L RDW 20.5 H Plt Count 379 Seg Neutrophils % 63.3 Sodium 141.1 Potassium 4.1 Chloride 106 Carbon Dioxide 29 Anion Gap 6 BUN 11 Creatinine 0.74 Est GFR ( Amer) > 60 Glucose 104 Calcium 8.5 Magnesium 1.8 Total Bilirubin 0.4 AST 46 H Alkaline Phosphatase 68 Total Protein 6.5 Albumin 3.4 L Serum HCG, Qual NEGATIVE 04/13/20 12:50 Troponin I 0.020 NT-Pro-B Natriuret Pep 1080 H Impressions: Chest X-Ray 04/13/20 12:24 IMPRESSION: Cardiomegaly with no jessee pulmonary edema. Chest/Abdomen CTA 04/13/20 14:24 IMPRESSION: 1. NORMAL CTA OF THE CHEST. NO PULMONARY EMBOLI. 2. CARDIOMEGALY WITH FAINT HAZY GROUND-GLASS OPACITIES SCATTERED THROUGHOUT BOTH LUNGS. PROBABLY DUE TO DEVELOPING PULMONARY EDEMA. PNEUMONITIS OR INFECTIOUS ETIOLOGY LESS LIKELY BUT NOT EXCLUDED. 3. PROBABLE ANTERIOR ABDOMINAL WALL HERNIA, NOT COMPLETELY IMAGED. Assessment and Plan - Diagnosis (1) CHF (congestive heart failure) Qualifiers: Heart failure type: combined systolic and diastolic Heart failure chronicity: acute on chronic Qualified Code(s): I50.43 - Acute on chronic combined systolic (congestive) and diastolic (congestive) heart failure Is this a current diagnosis for this admission?: Yes Plan: Echocardiogram (November 2018) revealed LVEF 35 to 40% with moderate global hypokinesis of the left ventricle. Patient states that she does not follow with machine washer. She reports that her PCP discontinued her Entresto several months ago; currently treated with metoprolol, clonidine, and spironolactone. She denies recently missing doses or dietary indiscretion. Presents with fluid volume overload; bilateral pulmonary edema, GUZMAN, orthopnea, productive cough, and elevated proBNP. Repeat echocardiogram pending. She is placed on daily aspirin and statin therapy. Start on losartan. Resume metoprolol. Diurese with IV furosemide. Low threshold for cardiology consultation. Cardiac diet. Fluid restricted. Daily weights, strict I&O's. (2) HTN (hypertension) Qualifiers: Hypertension type: unspecified Qualified Code(s): I10 - Essential (primary) hypertension Is this a current diagnosis for this admission?: Yes Plan: Hypertensive Urgency. Patient presented with blood pressures 208/134; improved to 182/133 following IV labetalol and furosemide. Patient is placed on daily losartan. Resume home dose of metoprolol. Patient also reports that she is on daily clonidine and spironolactone but does not know her dosing; will resume once reconciled. Continue IV labetalol as needed for blood pressure control. Goal is to gradually reduce pressures. Cardiac diet. (3) History of diabetes mellitus, type II Is this a current diagnosis for this admission?: Yes Plan: Patient denies diabetes mellitus, however, records indicate history of diabetes. Random glucose 104 today. We will check hemoglobin A1c with a.m. lab work. (4) Super obesity Is this a current diagnosis for this admission?: Yes Plan: BMI 49.7. If today's weight is accurate, she has an approximate 28 kg weight gain over the last 2 months; likely related to fluid volume overload in setting of decompensated CHF. She is placed on a consistent carb diet. Dietary discretion and lifestyle modification highly encouraged. Registered dietitian and patient educator consulted. (5) Suspected COVID-19 virus infection Is this a current diagnosis for this admission?: Yes Plan: CTA chest revealed faint, scattered, groundglass opacities throughout bilateral lungs. Patient works at the [employer] [place]; therefore, high potential for exposure. She denies recent fever, although, does admit to fatigue, dyspnea, and productive cough x2 weeks. We will obtain COVID testing. We will check d-dimer, ferritin, CRP, LDH. Consider full dose Lovenox pending d-dimer results. Provide supplemental oxygen as needed maintain saturations greater than 89%. As needed nebulizer treatments. Zinc, vitamin D, vitamin C, and melatonin supplementation. Encourage pulmonary toilet. Isolation precautions. - Time Time Spent with patient: 35 or more minutes Medications reviewed and adjusted accordingly: Yes Anticipated Discharge Disposition: Home, Self Care Anticipated Discharge Timeframe: within 48 hours
[2020-04-13 17:54] LABS: APPEARANCE,URINE CLEAR; BILIRUBIN,URINE NEGATIVE (NEGATIVE); COLOR,URINE COLORLESS; GLUCOSE, URINE NEGATIVE (NEGATIVE); KETONES,URINE NEGATIVE (NEGATIVE); PROTEIN,URINE NEGATIVE (NEGATIVE); URINE SPECIFIC GRAVITY 1.008; UROBILINOGEN,URINE NEGATIVE mg/dL (<2.0)
[2020-04-13 17:56] LABS: ARTERIAL BLOOD BASE EXCESS 4.8 mmol/L; ARTERIAL BLOOD FIO2 ROOM AIR; ARTERIAL BLOOD H2CO3 1.48 mmol/L (1.05-1.35); ARTERIAL BLOOD HCO3 30.2 mmol/L (20-24); ARTERIAL BLOOD O2 SATURATION 89.8 % (94-98); ARTERIAL BLOOD PCO2 49.3 mmHg (35-45); ARTERIAL BLOOD PH 7.41 (7.35-7.45); ARTERIAL BLOOD PO2 57.7 mmHg (80-100); ARTERIAL BLOOD TOTAL CO2 31.7 mmol/L (21-25)
[2020-04-13] MEDS ORDERED: ASCORBIC ACID 500 MG TABLET PO SCH (18:00)
[2020-04-13 18:03] LABS: C-REACTIVE PROTEIN 6.7 mg/L (<10.0)
[2020-04-13 18:10] LABS: D-DIMER 1.85 ug/mL (0.00-0.50)
[2020-04-13 18:36] LABS: FERRITIN 7.59 ng/mL (6.2-137.0)
[2020-04-13] MEDS: LOSARTAN POTASSIUM 25 MG TABLET PO SCH (18:38)
[2020-04-13] MEDS ORDERED: HEPARIN SOD (PORCINE) 5,000 UNIT/ML 1 ML VIAL SUBCUT SCH (22:00)
[2020-04-13] MEDS: METOPROLOL SUCCINATE 50 MG TAB.SR.24H PO SCH (22:39)
[2020-04-13] MEDS: ENOXAPARIN SODIUM INJ 150 MG/1 ML DISP.SYRIN SUBCUT SCH (22:40)
[2020-04-13] MEDS: FUROSEMIDE INJ/PF 40 MG/4 ML SDV IV SCH (22:41)
[2020-04-13] MEDS: ASCORBIC ACID 500 MG TABLET PO SCH (22:52)
[2020-04-14 01:35] LABS: APPEARANCE,URINE SLIGHTLY-CLOUDY; BILIRUBIN,URINE NEGATIVE (NEGATIVE); COLOR,URINE YELLOW; GLUCOSE, URINE NEGATIVE (NEGATIVE); KETONES,URINE NEGATIVE (NEGATIVE); LEUKOCYTE ESTERASE,URINE LARGE (NEGATIVE); NITRITE,URINE NEGATIVE (NEGATIVE); PROTEIN,URINE NEGATIVE (NEGATIVE); URINE SPECIFIC GRAVITY 1.006; UROBILINOGEN,URINE NEGATIVE mg/dL (<2.0)
[2020-04-14 05:55] LABS: HEMATOCRIT 27.9 % (36.0-47.0); HEMOGLOBIN 8.4 g/dL (12.0-15.5); MEAN CORPUSCULAR HEMOGLOBIN 19.5 pg (27.0-33.4); MEAN CORPUSCULAR VOLUME 65 fl (80-97); PLATELET COUNT 357 10^3/uL (150-450); RED BLOOD COUNT 4.28 10^6/uL (3.72-5.28); WHITE BLOOD COUNT 10.7 10^3/uL (4.0-10.5)
[2020-04-14 06:12] LABS: ANION GAP 6 (5-19); BLOOD UREA NITROGEN 11 mg/dL (7-20); CALCIUM 8.4 mg/dL (8.4-10.2); CARBON DIOXIDE 33 mmol/L (22-30); CHLORIDE 103 mmol/L (98-107); CHOLESTEROL 127.04 mg/dL (0-200); GLUCOSE 95 mg/dL (75-110); POTASSIUM 3.8 mmol/L (3.6-5.0); TRIGLYCERIDES 58 mg/dL (<150)
[2020-04-14 06:22] LABS: DIRECT LDL 69 mg/dL (<100)
[2020-04-14] MEDS ORDERED: ASPIRIN 81 MG TABLET, ENT COATED PO SCH (10:00)
[2020-04-14] MEDS: FUROSEMIDE INJ/PF 40 MG/4 ML SDV IV SCH ×2 (10:28→21:07)
[2020-04-14] MEDS: ENOXAPARIN SODIUM INJ 150 MG/1 ML DISP.SYRIN SUBCUT SCH ×2 (10:28→21:08)
[2020-04-14] MEDS: METOPROLOL SUCCINATE 50 MG TAB.SR.24H PO SCH ×2 (10:29→21:07)
[2020-04-14] MEDS: ASCORBIC ACID 500 MG TABLET PO SCH ×2 (10:29→21:07)
[2020-04-14] MEDS: CHOLECALCIFEROL (D3) 1,000 UNIT (25 MCG) TABLET PO SCH (10:29)
[2020-04-14] MEDS: LOSARTAN POTASSIUM 25 MG TABLET PO SCH ×2 (10:29→21:07)
[2020-04-14] MEDS: ASPIRIN 81 MG TABLET, ENT COATED PO SCH (10:29)
[2020-04-14] MEDS: DOCUSATE SODIUM 100 MG CAPSULE PO SCH (10:29)
[2020-04-14] MEDS: ZINC SULFATE 220 MG CAPSULE PO SCH (10:29)
--- NOTE | 2020-04-14 16:25 | PDOC PROGRESS REPORT ---
Subjective Progress Note for:: 04/14/20 Subjective:: AXEL WELLS is a 35 year old female with a past medical history of combined systolic/diastolic CHF, pulmonary hypertension, hypertension, DM 2, and super morbid obesity who was admitted 04/13/20 with acute on chronic CHF exacerbation. Patient was seen on afternoon rounds. She is found resting in bed, comfortably, on room air. She states she is just returned from the restroom. She is noted to be slightly tachypneic (RR 26) but maintaining oxygen saturations in the mid 90s on room air. She reports continued dyspnea on exertion and orthopnea. She feels that her bilateral lower extremity edema is slightly improved. Patient denies fever, chills, chest pain, palpitations, abdominal pain, nausea vomiting and diarrhea. She has no questions or concerns at this time. No concerns per nursing. Reason For Visit: HEART FAILURE Physical Exam Vital Signs: Temp Pulse Resp BP Pulse Ox 98.6 F 87 18 148/100 H 100 04/14/20 12:47 04/14/20 14:00 04/14/20 12:47 04/14/20 12:47 04/14/20 12:47 Intake & Output 04/13/20 04/14/20 04/15/20 06:59 06:59 06:59 Output Total 800 Balance -800 Weight 137.6 kg General appearance: PRESENT: no acute distress, cooperative, morbidly obese, well-developed, well-nourished Head exam: PRESENT: atraumatic, normocephalic Eye exam: PRESENT: conjunctiva pink, EOMI, PERRLA. ABSENT: scleral icterus Mouth exam: PRESENT: moist, tongue midline Respiratory exam: PRESENT: clear to auscultation carolynn, decreased breath sounds - Bibasilar, symmetrical, unlabored, other - Room air. ABSENT: rales, rhonchi, wheezes Cardiovascular exam: PRESENT: RRR. ABSENT: diastolic murmur, rubs, systolic murmur Vascular exam: PRESENT: normal capillary refill Extremities exam: PRESENT: full ROM, pedal edema - +2 bilaterally, +1 edema - +1 bilaterally; no appreciable decrease from yesterday. ABSENT: calf tenderness, clubbing Musculoskeletal exam: PRESENT: ambulatory Neurological exam: PRESENT: alert, awake, oriented to person, oriented to place, oriented to time, oriented to situation, CN II-XII grossly intact. ABSENT: motor sensory deficit Psychiatric exam: PRESENT: appropriate affect, normal mood. ABSENT: homicidal ideation, suicidal ideation Skin exam: PRESENT: dry, intact, warm. ABSENT: cyanosis, rash Results Laboratory Results: 04/14/20 04:57 04/14/20 04:57 04/13/20 04/13/20 04/13/20 12:50 16:49 17:25 WBC RBC Hgb Hct MCV MCH MCHC RDW Plt Count Carbonic Acid 1.48 H HCO3/H2CO3 Ratio 20:1 ABG pH 7.41 ABG pCO2 49.3 H ABG pO2 57.7 L ABG HCO3 30.2 H ABG O2 Saturation 89.8 L ABG Base Excess 4.8 FiO2 ROOM AIR Sodium Potassium Chloride Carbon Dioxide Anion Gap BUN Creatinine Est GFR ( Amer) Glucose Calcium Ferritin 7.59 C-Reactive Protein 6.7 Triglycerides Cholesterol LDL Cholesterol Direct VLDL Cholesterol HDL Cholesterol TSH Urine Color COLORLESS Urine Appearance CLEAR Urine pH 7.0 Ur Specific [place] 1.008 Urine Protein NEGATIVE Urine Glucose (UA) NEGATIVE Urine Ketones NEGATIVE Urine Blood NEGATIVE Urine Nitrite Ur Leukocyte Esterase Urine WBC (Auto) Urine RBC (Auto) 0 04/14/20 04/14/20 04/14/20 00:45 04:57 04:57 WBC 10.7 H RBC 4.28 Hgb 8.4 L Hct 27.9 L MCV 65 L MCH 19.5 L MCHC 30.0 L RDW 20.0 H Plt Count 357 Carbonic Acid HCO3/H2CO3 Ratio ABG pH ABG pCO2 ABG pO2 ABG HCO3 ABG O2 Saturation ABG Base Excess FiO2 Sodium 142.2 Potassium 3.8 Chloride 103 Carbon Dioxide 33 H Anion Gap 6 BUN 11 Creatinine 0.91 Est GFR ( Amer) > 60 Glucose 95 Calcium 8.4 Ferritin C-Reactive Protein Triglycerides 58 Cholesterol 127.04 LDL Cholesterol Direct 69 VLDL Cholesterol 12.0 HDL Cholesterol 43 TSH Urine Color YELLOW Urine Appearance SLIGHTLY-CLOUDY Urine pH 8.0 Ur Specific [place] 1.006 Urine Protein NEGATIVE Urine Glucose (UA) NEGATIVE Urine Ketones NEGATIVE Urine Blood SMALL H Urine Nitrite NEGATIVE Ur Leukocyte Esterase LARGE H Urine WBC (Auto) 2 Urine RBC (Auto) 1 04/14/20 04:57 WBC RBC Hgb Hct MCV MCH MCHC RDW Plt Count Carbonic Acid HCO3/H2CO3 Ratio ABG pH ABG pCO2 ABG pO2 ABG HCO3 ABG O2 Saturation ABG Base Excess FiO2 Sodium Potassium Chloride Carbon Dioxide Anion Gap BUN Creatinine Est GFR ( Amer) Glucose Calcium Ferritin C-Reactive Protein Triglycerides Cholesterol LDL Cholesterol Direct VLDL Cholesterol HDL Cholesterol TSH 0.94 Urine Color Urine Appearance Urine pH Ur Specific [place] Urine Protein Urine Glucose (UA) Urine Ketones Urine Blood Urine Nitrite Ur Leukocyte Esterase Urine WBC (Auto) Urine RBC (Auto) 04/13/20 04/13/20 12:50 16:49 Troponin I 0.020 0.028 NT-Pro-B Natriuret Pep 1080 H Impressions: Chest X-Ray 04/13/20 12:24 IMPRESSION: Cardiomegaly with no jessee pulmonary edema. Chest/Abdomen CTA 04/13/20 14:24 IMPRESSION: 1. NORMAL CTA OF THE CHEST. NO PULMONARY EMBOLI. 2. CARDIOMEGALY WITH FAINT HAZY GROUND-GLASS OPACITIES SCATTERED THROUGHOUT BOTH LUNGS. PROBABLY DUE TO DEVELOPING PULMONARY EDEMA. PNEUMONITIS OR INFECTIOUS ETIOLOGY LESS LIKELY BUT NOT EXCLUDED. 3. PROBABLE ANTERIOR ABDOMINAL WALL HERNIA, NOT COMPLETELY IMAGED. Assessment and Plan - Diagnosis (1) CHF (congestive heart failure) Qualifiers: Heart failure type: combined systolic and diastolic Heart failure chronicity: acute on chronic Qualified Code(s): I50.43 - Acute on chronic combined systolic (congestive) and diastolic (congestive) heart failure Is this a current diagnosis for this admission?: Yes Plan: Echocardiogram (November 2018) revealed LVEF 35 to 40% with moderate global hypokinesis of the left ventricle. Patient states that she does not follow with neuroscience director na. Presents with fluid volume overload; bilateral pulmonary edema, GUZMAN, orthopnea, productive cough, and elevated proBNP. Repeat echocardiogram pending. Unfortunately, Strict I&Os have not been kept. She is placed on daily aspirin and statin therapy. Have started losartan. Continue metoprolol. Diurese with IV furosemide. Low threshold for cardiology consultation. Cardiac diet. Fluid restricted. Daily weights, strict I&O's. (2) HTN (hypertension) Qualifiers: Hypertension type: unspecified Qualified Code(s): I10 - Essential (primary) hypertension Is this a current diagnosis for this admission?: Yes Plan: Continues to improve; 148/100 down from 208/134 at presentation Hypertensive Urgency. Patient is placed on twice daily losartan. Continue metoprolol. Continue IV labetalol as needed for blood pressure control. Goal is to gradually reduce pressures. Cardiac diet. (3) History of diabetes mellitus, type II Is this a current diagnosis for this admission?: Yes Plan: Patient denies diabetes mellitus, however, records indicate history of diabetes. Hemoglobin A1c 5.8% (4) Super obesity Is this a current diagnosis for this admission?: Yes Plan: BMI 49.7. She has an approximate 28 kg weight gain over the last year; in part related to fluid volume overload in setting of decompensated CHF. She is placed on a consistent carb diet. Dietary discretion and lifestyle modification highly encouraged. Registered dietitian and patient educator consulted. (5) Suspected COVID-19 virus infection Is this a current diagnosis for this admission?: Yes Plan: CTA chest revealed faint, scattered, groundglass opacities throughout bilateral lungs. Patient works at the [employer] [place]; therefore, high potential for exposure. She denies recent fever, although, does admit to fatigue, dyspnea, and productive cough x2 weeks. We will obtain COVID testing. We will check d-dimer, ferritin, CRP, LDH. Consider full dose Lovenox pending d-dimer results. Provide supplemental oxygen as needed maintain saturations greater than 89%. As needed nebulizer treatments. Zinc, vitamin D, vitamin C, and melatonin supplementation. Encourage pulmonary toilet. Isolation precautions. (6) Anemia Qualifiers: Anemia type: unspecified type Qualified Code(s): D64.9 - Anemia, unspecified Is this a current diagnosis for this admission?: Yes Plan: Hemoglobin 8.4. We will check anemia panel with a.m. lab work. (7) Noncompliance with medication regimen Is this a current diagnosis for this admission?: Yes Plan: She reported that her PCP discontinued her Entresto several months ago; she did not know why (was asked about financial barriers). Reported that she currently is treated with metoprolol, clonidine, and spironolactone. However, upon reconciling the patient's medications, her outpatient pharmacy reported that the patient last filled prescriptions in November 2018. Will discuss w/ patient further regarding importance of lifestyle modification, dietary, and medical compliance. - Time Time Spent with patient: 25-34 minutes Medications reviewed and adjusted accordingly: Yes Anticipated Discharge Disposition: Home, Self Care Anticipated Discharge Timeframe: within 48 hours
--- NOTE | 2020-04-14 19:02 | EKG REPORT ---
SEVERITY:- BORDERLINE ECG - SINUS TACHYCARDIA PROBABLE LEFT ATRIAL ABNORMALITY BORDERLINE T ABNORMALITIES, LATERAL LEADS : Confirmed by: Idris Thomas MD 14-Apr-2020 19:02:11
--- NOTE | 2020-04-14 19:11 | XCELERA REPORT ---
[address] [address] Transthoracic Echocardiogram Report Name: AXEL WELLS Age: 35 yrs Gender: Female : 1985 Patient Status: Inpatient Patient Location: [place] [address]^A Study Date: 04/13/2020 05:47 PM History: CHF Height: 67 in Weight: 317 lb BSA: 2.5 m2 Procedure: A complete two-dimensional transthoracic echocardiogram was performed (2D, M-mode, spectral and color flow Doppler). Reason For Study: chf exacerbation Previous Evaluation: A previous study was performed on 11/12/2018 LVEF 35-40%. History: CHF. Ordering Physician: BELEN CORREA Performed By: Ninoska Nino Interpretation Summary Left ventricular systolic function is mildly reduced. The Ejection Fraction estimate is 45-50% The right ventricle is normal in size and function. There is a mild amount of mitral regurgitation There is no aortic valve stenosis There is a mild amount of aortic regurgitation There is a trace amount of tricuspid regurgitation There is no pericardial effusion. MMode/2D Measurements & Calculations RVDd: 3.4 cm LVIDd: 5.8 cm FS: 32.3 % Ao root diam: 3.1 cm IVSd: 1.5 cm LVIDs: 3.9 cm EDV(Teich): 163.5 ml Ao root area: 7.5 cm2 LVPWd: 1.3 cm ESV(Teich): 65.7 ml LA dimension: 4.6 cm EF(Teich): 59.8 % Doppler Measurements & Calculations MV E max latasha: MV P1/2t max latasha: Ao V2 max: AI max latasha: 128.8 cm/sec 136.7 cm/sec 176.8 cm/sec 286.0 cm/sec MV A max latasha: MV P1/2t: 79.6 msec Ao max PG: AI max P.4 cm/sec MVA(P1/2t): 2.8 cm2 12.5 mmHg 32.7 mmHg MV E/A: 2.7 MV dec slope: AI dec slope: 275.4 cm/sec2 503.0 cm/sec2 AI P1/2t: MV dec time: 304.2 msec 0.15 sec LV V1 max PG: PA V2 max: PI end-d latasha: TR max latasha: 5.9 mmHg 101.2 cm/sec 207.5 cm/sec 254.0 cm/sec LV V1 max: PA max P.1 mmHg TR max P.4 cm/sec 25.8 mmHg AV P1/2t-pr_phl: MV P1/2t-pr_phl: 304.2 msec 79.6 msec Left Ventricle The left ventricle is mildly dilated. There is severe concentric left ventricular hypertrophy. Left ventricular systolic function is mildly reduced. The Ejection Fraction estimate is 45-50%. Doppler measurements suggest reversible restrictive left ventricular relaxation, which is associated with grade III/IV or moderate diastolic dysfunction. There is mild global hypokinesis of the left ventricle. Right Ventricle The right ventricle is normal in size and function. Atria The right atrium is normal. The left atrium is mildly dilated. The interatrial septum is intact with no evidence for an atrial septal defect. There is no Doppler evidence for an interatrial shunt. Mitral Valve The mitral valve is grossly normal. There is no mitral valve stenosis. There is a mild amount of mitral regurgitation. Aortic Valve The aortic valve is normal in structure and function. The aortic valve is trileaflet. The aortic valve opens well. There is no aortic valve stenosis. There is a mild amount of aortic regurgitation. Tricuspid Valve The tricuspid valve is normal in structure and function. There is a trace amount of tricuspid regurgitation. Tricuspid regurgitation jet envelope not well defined to measure RV systolic pressure accurately. Pulmonic Valve The pulmonic valve is normal in structure and function. There is no pulmonic valvular stenosis. There is a mild amount of pulmonic regurgitation. Great Vessels The aortic root is normal size. The inferior vena cava appeared normal and decreased < 50% with respiration (RAP 10-15 mmHg). Effusions There is no pericardial effusion. : BELEN CORREA Anil
[2020-04-15 05:58] LABS: ABSOLUTE RETICS # 0.146 10^6/uL (0.028-0.122); HEMATOCRIT 29.1 % (36.0-47.0); HEMOGLOBIN 8.9 g/dL (12.0-15.5); MEAN CORPUSCULAR HEMOGLOBIN 19.5 pg (27.0-33.4); MEAN CORPUSCULAR HGB CONC 30.4 g/dL (32.0-36.0); MEAN CORPUSCULAR VOLUME 64 fl (80-97); PLATELET COUNT 366 10^3/uL (150-450); RED BLOOD COUNT 4.53 10^6/uL (3.72-5.28); RED CELL DISTRIBUTION WIDTH 20.1 % (11.5-14.0); RETICULOCYTE COUNT (AUTO) 3.23 % (0.66-2.85); WHITE BLOOD COUNT 9.5 10^3/uL (4.0-10.5)
[2020-04-15 06:05] LABS: ANION GAP 6 (5-19); BLOOD UREA NITROGEN 12 mg/dL (7-20); CALCIUM 8.9 mg/dL (8.4-10.2); CARBON DIOXIDE 35 mmol/L (22-30); CHLORIDE 100 mmol/L (98-107); GLUCOSE 104 mg/dL (75-110); IRON(TIBC) 19.1 ug/dL (37-170); POTASSIUM 4.1 mmol/L (3.6-5.0)
[2020-04-15 06:42] LABS: FERRITIN 8.16 ng/mL (6.2-137.0)
[2020-04-15] MEDS ORDERED: INFLUENZA QUAD (6MOS+) 2020-21 VAC 0.5 ML SYR IM ONE (08:00)
[2020-04-15] MEDS ORDERED: PROMETHAZINE HCL INJ 25 MG/1 ML VIAL IV PRN (09:30)
[2020-04-15] MEDS ORDERED: ENOXAPARIN SODIUM INJ 150 MG/1 ML DISP.SYRIN SUBCUT SCH (10:00)
[2020-04-15] MEDS: FUROSEMIDE INJ/PF 40 MG/4 ML SDV IV SCH ×2 (10:08→22:01)
[2020-04-15] MEDS: ZINC SULFATE 220 MG CAPSULE PO SCH (10:09)
[2020-04-15] MEDS: LOSARTAN POTASSIUM 25 MG TABLET PO SCH ×2 (10:09→22:01)
[2020-04-15] MEDS: DOCUSATE SODIUM 100 MG CAPSULE PO SCH (10:09)
[2020-04-15] MEDS: ASPIRIN 81 MG TABLET, ENT COATED PO SCH (10:09)
[2020-04-15] MEDS: ASCORBIC ACID 500 MG TABLET PO SCH (10:09)
[2020-04-15] MEDS: METOPROLOL SUCCINATE 50 MG TAB.SR.24H PO SCH ×2 (10:09→22:01)
[2020-04-15] MEDS: CHOLECALCIFEROL (D3) 1,000 UNIT (25 MCG) TABLET PO SCH (10:09)
--- NOTE | 2020-04-15 15:40 | PDOC PROGRESS REPORT ---
Subjective Progress Note for:: 04/15/20 Subjective:: AXEL WELLS is a 35 year old female with a past medical history of combined systolic/diastolic CHF, pulmonary hypertension, hypertension, DM 2, and super morbid obesity who was admitted 04/13/20 with acute on chronic CHF exacerbation. Patient was seen on afternoon rounds. She is found resting in bed, comfortably, on room air. She reports continued dyspnea on exertion and orthopnea. States that she did not use our CPAP last night because she "doesn't like the sound." She does state she is feeling slightly better. Reports her bilateral lower extremity edema is improved. Patient denies fever, chills, chest pain, palpitations, abdominal pain, nausea vomiting and diarrhea. She has no questions or concerns at this time. No concerns per nursing. Reason For Visit: HEART FAILURE Physical Exam Vital Signs: Temp Pulse Resp BP Pulse Ox 98.8 F 87 20 122/65 95 04/15/20 11:06 04/15/20 11:06 04/15/20 11:06 04/15/20 11:06 04/15/20 11:06 Intake & Output 04/14/20 04/15/20 04/16/20 06:59 06:59 06:59 Intake Total 677 716 Output Total 800 0560 900 Balance -800 -2123 -184 Weight 137.6 kg 137.7 kg 137.7 kg General appearance: PRESENT: no acute distress, morbidly obese, well-developed, well-nourished Head exam: PRESENT: atraumatic, normocephalic Eye exam: PRESENT: conjunctiva pink, EOMI, PERRLA. ABSENT: scleral icterus Mouth exam: PRESENT: moist, tongue midline Respiratory exam: PRESENT: clear to auscultation carolynn, decreased breath sounds - Throughout secondary to body habitus and poor inspiratory effort, symmetrical, unlabored, other - Room air. ABSENT: rales, rhonchi, wheezes Cardiovascular exam: PRESENT: RRR. ABSENT: diastolic murmur, rubs, systolic murmur Vascular exam: PRESENT: normal capillary refill Extremities exam: PRESENT: full ROM, +1 edema - BLE; improved. ABSENT: calf tenderness, clubbing, pedal edema Neurological exam: PRESENT: alert, awake, oriented to person, oriented to place, oriented to time, oriented to situation, CN II-XII grossly intact. ABSENT: motor sensory deficit Psychiatric exam: PRESENT: flat affect, normal mood. ABSENT: homicidal ideation, suicidal ideation Skin exam: PRESENT: dry, intact, warm. ABSENT: cyanosis, rash Results Laboratory Results: 04/15/20 05:03 04/15/20 05:03 04/15/20 04/15/20 05:03 05:03 WBC 9.5 RBC 4.53 Hgb 8.9 L Hct 29.1 L MCV 64 L MCH 19.5 L MCHC 30.4 L RDW 20.1 H Plt Count 366 Retic Count (auto) 3.23 H Sodium 140.8 Potassium 4.1 Chloride 100 Carbon Dioxide 35 H Anion Gap 6 BUN 12 Creatinine 0.79 Est GFR ( Amer) > 60 Glucose 104 Calcium 8.9 Iron 19.1 L TIBC 435 % Saturation 4 Ferritin 8.16 Vitamin B12 > 1000.0 H Folate 7.50 04/13/20 04/13/20 04/15/20 12:50 16:49 05:03 Troponin I 0.020 0.028 NT-Pro-B Natriuret Pep 1080 H 422 H Impressions: Chest X-Ray 04/13/20 12:24 IMPRESSION: Cardiomegaly with no jessee pulmonary edema. Chest/Abdomen CTA 04/13/20 14:24 IMPRESSION: 1. NORMAL CTA OF THE CHEST. NO PULMONARY EMBOLI. 2. CARDIOMEGALY WITH FAINT HAZY GROUND-GLASS OPACITIES SCATTERED THROUGHOUT BOTH LUNGS. PROBABLY DUE TO DEVELOPING PULMONARY EDEMA. PNEUMONITIS OR INFECTIOUS ETIOLOGY LESS LIKELY BUT NOT EXCLUDED. 3. PROBABLE ANTERIOR ABDOMINAL WALL HERNIA, NOT COMPLETELY IMAGED. Assessment and Plan - Diagnosis (1) CHF (congestive heart failure) Qualifiers: Heart failure type: combined systolic and diastolic Heart failure chronicity: acute on chronic Qualified Code(s): I50.43 - Acute on chronic combined systolic (congestive) and diastolic (congestive) heart failure Is this a current diagnosis for this admission?: Yes Plan: Echocardiogram shows LVEF 45 to 50% with severe LVH grade 3 diastolic dysfu nction, and global hypokinesis of the LV. It is unclear whether strict I&O's of been kept; possibly down 3 L. Although, weight is unchanged. proBNP 1080-> 422 She is placed on daily aspirin and statin therapy. Have started losartan. Continue metoprolol. Diurese with IV furosemide. Low threshold for cardiology consultation. Cardiac diet. Fluid restricted. Daily weights, strict I&O's. (2) HTN (hypertension) Qualifiers: Hypertension type: unspecified Qualified Code(s): I10 - Essential (primary) hypertension Is this a current diagnosis for this admission?: Yes Plan: Resolved. Hypertensive Urgency. Patient is placed on twice daily losartan. Continue metoprolol. Continue IV labetalol as needed for blood pressure control. Cardiac diet. (3) History of diabetes mellitus, type II Is this a current diagnosis for this admission?: Yes Plan: Patient denies diabetes mellitus, however, records indicate history of diabetes. Hemoglobin A1c 5.8% (4) Super obesity Is this a current diagnosis for this admission?: Yes Plan: BMI 49.7. She has an approximate 28 kg weight gain over the last year; in part related to fluid volume overload in setting of decompensated CHF. She is placed on a consistent carb diet. Dietary discretion and lifestyle modification highly encouraged. Registered dietitian and patient educator consulted. (5) Suspected COVID-19 virus infection Is this a current diagnosis for this admission?: Yes Plan: Ruled out; Covid testing negative. CTA chest revealed faint, scattered, groundglass opacities throughout bilateral lungs. (6) Anemia Qualifiers: Anemia type: unspecified type Qualified Code(s): D64.9 - Anemia, unspecified Is this a current diagnosis for this admission?: Yes Plan: Hemoglobin 8.4. Anemia panel reveals mild iron deficiency. She is started on ferrous sulfate supplementation. (7) Noncompliance with medication regimen Is this a current diagnosis for this admission?: Yes Plan: Concern for noncompliance r/t knowledge deficits. She reported that her PCP discontinued her Entresto several months ago; she did not know why (was asked about financial barriers). Reported that she currently is treated with metoprolol, clonidine, and spironolactone. However, upon reconciling the patient's medications, her outpatient pharmacy reported that the patient last filled prescriptions in November 2018. Discussed w/ patient; states she receives her medications mail order from [place]. She reports compliance with medications though "cheats" on diet. Have asked pharmacy to reconcile medications. - Time Time Spent with patient: 25-34 minutes Medications reviewed and adjusted accordingly: Yes Anticipated Discharge Disposition: Home, Self Care Anticipated Discharge Timeframe: within 24 hours
[2020-04-16 07:03] LABS: HEMATOCRIT 31.2 % (36.0-47.0); HEMOGLOBIN 9.3 g/dL (12.0-15.5); MEAN CORPUSCULAR HEMOGLOBIN 19.2 pg (27.0-33.4); MEAN CORPUSCULAR HGB CONC 29.7 g/dL (32.0-36.0); MEAN CORPUSCULAR VOLUME 65 fl (80-97); PLATELET COUNT 367 10^3/uL (150-450); RED BLOOD COUNT 4.83 10^6/uL (3.72-5.28); RED CELL DISTRIBUTION WIDTH 20.3 % (11.5-14.0); WHITE BLOOD COUNT 7.2 10^3/uL (4.0-10.5)
[2020-04-16] MEDS ORDERED: ALBUTEROL SULFATE HFA (90 MCG/PUFF) 8 GM MDI (1 MDI/ER DISP) IH PRN (08:21)
[2020-04-16] MEDS ORDERED: ALBUTEROL SULFATE HFA (90 MCG/PUFF) 8 GM MDI IH PRN (08:58)
[2020-04-16] MEDS: ASPIRIN 81 MG TABLET, ENT COATED PO SCH (09:50)
[2020-04-16] MEDS: DOCUSATE SODIUM 100 MG CAPSULE PO SCH (09:50)
[2020-04-16] MEDS: LOSARTAN POTASSIUM 25 MG TABLET PO SCH (09:50)
[2020-04-16] MEDS: METOPROLOL SUCCINATE 50 MG TAB.SR.24H PO SCH (09:50)
[2020-04-16] MEDS: CHOLECALCIFEROL (D3) 1,000 UNIT (25 MCG) TABLET PO SCH (09:50)
[2020-04-16] MEDS: ZINC SULFATE 220 MG CAPSULE PO SCH (09:52)
[2020-04-16] MEDS ORDERED: FERROUS SULFATE 325 MG TABLET PO SCH (10:00)
[2020-04-16] MEDS ORDERED: (PENDING PHARMACY ID) (Topiramate [Topiramate] 50 MG) PO SCH (10:00)
[2020-04-16] MEDS ORDERED: FUROSEMIDE 80 MG TABLET PO SCH (10:00)
[2020-04-16] MEDS ORDERED: IPRATROPIUM BROMIDE PO SCH (10:00)
[2020-04-16] MEDS ORDERED: TOPIRAMATE 25 MG TABLET PO SCH (10:00)
[2020-04-16] MEDS ORDERED: PAROXETINE HCL 20 MG TABLET PO SCH (10:00)
[2020-04-16 10:25] LABS: APPEARANCE,URINE SLIGHTLY-CLOUDY; BILIRUBIN,URINE NEGATIVE (NEGATIVE); COLOR,URINE YELLOW; GLUCOSE, URINE NEGATIVE (NEGATIVE); KETONES,URINE NEGATIVE (NEGATIVE); LEUKOCYTE ESTERASE,URINE SMALL (NEGATIVE); NITRITE,URINE NEGATIVE (NEGATIVE); PROTEIN,URINE NEGATIVE (NEGATIVE); URINE SPECIFIC GRAVITY 1.013; UROBILINOGEN,URINE NEGATIVE mg/dL (<2.0)
[2020-04-16 13:11] VITALS: BP 139/76
[2020-04-16] MEDS ORDERED: IPRATROPIUM BROMIDE 0.02% NEB 0.5 MG/2.5 ML AMPUL NEB SCH (14:00)
--- NOTE | 2020-04-16 19:21 | PDOC DISCHARGE SUMMARY ---
Impression - Admit/DC Date/PCP Admission Date/Primary Care Provider: 04/13/20 16:17 [facility] Discharge Date: 04/16/20 - Discharge Diagnosis (1) CHF (congestive heart failure) Is this a current diagnosis for this admission?: Yes (2) HTN (hypertension) Is this a current diagnosis for this admission?: Yes (3) History of diabetes mellitus, type II Is this a current diagnosis for this admission?: Yes (4) Super obesity Is this a current diagnosis for this admission?: Yes (5) Suspected COVID-19 virus infection Is this a current diagnosis for this admission?: Yes (6) Anemia Is this a current diagnosis for this admission?: Yes (7) Noncompliance with medication regimen Is this a current diagnosis for this admission?: Yes - Additional Information Resuscitation Status: Full Code Discharge Diet: Cardiac, Other (Comments) Discharge Activity: Activity As Tolerated, Balance Activity w/Rest, Weigh Daily Referrals: ANANYA PLATT MD [ACTIVE STAFF] - 04/26/20 1:00 pm (Follow up at earliest available appt to establish care.) [facility] [Primary [facility] Provider] - (follow up within 1 weekpatient needs to call for appointment) Prescriptions: Losartan Potassium [Cozaar 25 mg Tablet] 25 mg PO Q12 #60 tablet Aspirin [Ecotrin 81 mg EC Tablet] 81 mg PO DAILY #90 tabec Ferrous Sulfate [Feosol 325 mg Tablet] 325 mg PO DAILY #90 tablet Furosemide [Lasix 80 mg Tablet] 80 mg PO DAILY #30 tablet Home Medications: Albuterol Sulfate [Proair HFA Inhalation Aerosol 8.5 gm MDI] 2 puff IH QIDP PRN 04/15/20 Ipratropium [place] [Atrovent Hfa] 1 puff PO QID 04/15/20 Metoprolol Succinate [Toprol Xl] 200 mg PO DAILY 04/15/20 Paroxetine HCl [Paxil] 20 mg PO QAM 04/15/20 Topiramate 50 mg PO BID 04/15/20 Acetaminophen [Tylenol 325 mg Tablet] 650 mg PO Q4HP PRN tablet 04/16/20 Aspirin [Ecotrin 81 mg EC Tablet] 81 mg PO DAILY #90 tabec 04/16/20 Docusate Sodium [Colace 100 mg Capsule] 100 mg PO DAILY capsule 04/16/20 Ferrous Sulfate [Feosol 325 mg Tablet] 325 mg PO DAILY #90 tablet 04/16/20 Furosemide [Lasix 80 mg Tablet] 80 mg PO DAILY #30 tablet 04/16/20 Losartan Potassium [Cozaar 25 mg Tablet] 25 mg PO Q12 #60 tablet 04/16/20 Metoprolol Succinate [Toprol Xl 50 mg Tab.sr] 200 mg PO Q12 tab.sr.24h 04/16/20 History of Present Illiness History of Present Illness: AXEL WELLS is a 35 year old female with a past medical history of combined s ystolic/diastolic CHF, pulmonary hypertension, hypertension, DM 2, and super morbid obesity who presented to the emergency department today with a complaint of 2 weeks of progressively worsening dyspnea on exertion, orthopnea, productive cough, fatigue, and bilateral lower extremity edema. Evaluation in the emergency department revealed hypertensive urgency with initial blood pressure 208/134; improved to 182/133 following IV labetalol and furosemide. She is also noted to have tachycardia (HR 119), tachypnea (RR 41), mild hypoxia (SPO2 90% on room air), baseline anemia (hemoglobin 8.7, hematocrit 29.9), and unremarkable chemistry other than a proBNP of 1080 (baseline approximately 500). CTA chest demonstrated cardiomegaly with faint groundglass opacities scattered throughout bilateral lungs; possible developing pulmonary edema versus pneumonitis or infectious etiology. She is referred to the hospitalist service for further evaluation management of the above stated complaints and findings. Hospital Course Hospital Course: (1) CHF (congestive heart failure) Acute exacerbation has resolved. Echocardiogram shows LVEF 45 to 50% with severe LVH grade 3 diastolic dysfunction, and global hypokinesis of the LV. It is unclear whether strict I&O's of been kept; possibly down 3.5 L. Although, weight is unchanged. proBNP 1080-> 422 She is placed on daily aspirin and statin therapy. Have started losartan. Patient was previously on Entresto. Tells me that her PCP discontinued this medication because of financial barriers. She was on lisinopril prior to admission. Hopefully, at follow-up appointment with global regulatory affairs manager, she can be enrolled in a patient financial assistance program to resume Entresto. Therefore, she is discharged on losartan versus ACEI. Continue home dose metoprolol. Diuresed with IV furosemide; clinical improvement noted. Peripheral edema has resolved, lung sounds clear, now ambulatory on room air without dyspnea and maintaining oxygen saturations of 98 to 100%. Cardiac diet. Fluid restricted. Now enrolled in the transitions golf coach program. (2) HTN (hypertension) Resolved. Hypertensive Urgency. Patient is placed on twice daily losartan. Continue metoprolol. Discharged on p.o. furosemide. Cardiac diet. (3) History of diabetes mellitus, type II Patient denies diabetes mellitus, however, records indicate history of diabetes. Hemoglobin A1c 5.8% (4) Super obesity BMI 49.7. She has an approximate 28 kg weight gain over the last year; in part related to fluid volume overload in setting of decompensated CHF. She is placed on a cardiac diet. Dietary discretion and lifestyle modification highly encouraged. Registered dietitian and patient educator were consulted. (5) Suspected COVID-19 virus infection Ruled out; Covid testing negative. CTA chest revealed faint, scattered, groundglass opacities throughout bilateral lungs. (6) Anemia Hemoglobin 8.4. Anemia panel reveals mild iron deficiency. She is started on ferrous sulfate supplementation. (7) Noncompliance with medication regimen Concern for noncompliance r/t knowledge deficits. We were able to verify with the patient's mail order pharmacy that she has been receiving medications on a regular basis. She was encouraged to continue dietary and medication compliance with lifestyle modification. She is agreeable to working with the transitions golf coach program. Physical Exam Vital Signs: Temp Pulse Resp BP Pulse Ox 98.4 F 86 18 139/76 H 95 04/16/20 13:08 04/16/20 13:08 04/16/20 13:08 04/16/20 13:08 04/16/20 13:08 Intake & Output 04/15/20 04/16/20 04/17/20 06:59 06:59 06:59 Intake Total 677 956 Output Total 2800 1350 Balance -2123 -394 Weight 137.7 kg 138.1 kg 138.1 kg General appearance: PRESENT: no acute distress, cooperative, morbidly obese, well-developed, well-nourished Head exam: PRESENT: atraumatic, normocephalic Eye exam: PRESENT: conjunctiva pink, EOMI, PERRLA. ABSENT: scleral icterus Mouth exam: PRESENT: moist, tongue midline Neck exam: ABSENT: carotid bruit, JVD, lymphadenopathy, thyromegaly Respiratory exam: PRESENT: clear to auscultation [place], symmetrical, unlabored, other - Room air. ABSENT: rales, rhonchi, wheezes Cardiovascular exam: PRESENT: RRR. ABSENT: diastolic murmur, rubs, systolic murmur Pulses: PRESENT: normal dorsalis pedis pul Vascular exam: PRESENT: normal capillary refill Extremities exam: PRESENT: full ROM, pedal edema - Trace bilaterally. ABSENT: calf tenderness, clubbing Musculoskeletal exam: PRESENT: ambulatory - Ambulatory on room air Neurological exam: PRESENT: alert, awake, oriented to person, oriented to place, oriented to time, oriented to situation, CN II-XII grossly intact. ABSENT: motor sensory deficit Psychiatric exam: PRESENT: appropriate affect, normal mood. ABSENT: homicidal ideation, suicidal ideation Skin exam: PRESENT: dry, intact, warm. ABSENT: cyanosis, rash Results Laboratory Results: WBC 7.2 10^3/uL (4.0-10.5) 04/16/20 06:29 RBC 4.83 10^6/uL (3.72-5.28) 04/16/20 06:29 Hgb 9.3 g/dL (12.0-15.5) L 04/16/20 06:29 Hct 31.2 % (36.0-47.0) L 04/16/20 06:29 MCV 65 fl (80-97) L 04/16/20 06:29 MCH 19.2 pg (27.0-33.4) L 04/16/20 06:29 MCHC 29.7 g/dL (32.0-36.0) L 04/16/20 06:29 RDW 20.3 % (11.5-14.0) H 04/16/20 06:29 Plt Count 367 10^3/uL (150-450) 04/16/20 06:29 Lymph % (Auto) 25.0 % (13-45) 04/13/20 12:50 [place] % (Auto) 7.8 % (3-13) 04/13/20 12:50 Eos % (Auto) 2.5 % (0-6) 04/13/20 12:50 Baso % (Auto) 1.4 % (0-2) 04/13/20 12:50 Reticulocyte # 0.146 10^6/uL (0.028-0.122) H 04/15/20 05:03 Absolute Neuts (auto) 6.0 10^3/uL (1.7-8.2) 04/13/20 12:50 Absolute Lymphs (auto) 2.4 10^3/uL (0.5-4.7) 04/13/20 12:50 Absolute Monos (auto) 0.7 10^3/uL (0.1-1.4) 04/13/20 12:50 Absolute Eos (auto) 0.2 10^3/uL (0.0-0.6) 04/13/20 12:50 Absolute Basos (auto) 0.1 10^3/uL (0.0-0.2) 04/13/20 12:50 Seg Neutrophils % 63.3 % (42-78) 04/13/20 12:50 Retic Count (auto) 3.23 % (0.66-2.85) H 04/15/20 05:03 Fibrinogen 344 mg/dL (209-497) 04/13/20 12:50 D-Dimer 1.85 ug/mL (0.00-0.50) H 04/13/20 12:50 Carbonic Acid 1.48 mmol/L (1.05-1.35) H 04/13/20 17:25 HCO3/H2CO3 Ratio 20:1 04/13/20 17:25 ABG pH 7.41 (7.35-7.45) 04/13/20 17:25 ABG pCO2 49.3 mmHg (35-45) H 04/13/20 17:25 ABG pO2 57.7 mmHg (80-100) L 04/13/20 17:25 ABG HCO3 30.2 mmol/L (20-24) H 04/13/20 17:25 ABG Total CO2 31.7 mmol/L (21-25) H 04/13/20 17:25 ABG O2 Saturation 89.8 % (94-98) L 04/13/20 17:25 ABG Base Excess 4.8 mmol/L 04/13/20 17:25 FiO2 ROOM AIR 04/13/20 17:25 Sodium 140.8 mmol/L (137-145) 04/15/20 05:03 Potassium 4.1 mmol/L (3.6-5.0) 04/15/20 05:03 Chloride 100 mmol/L (98-107) 04/15/20 05:03 Carbon Dioxide 35 mmol/L (22-30) H 04/15/20 05:03 Anion Gap 6 (5-19) 04/15/20 05:03 BUN 12 mg/dL (7-20) 04/15/20 05:03 Creatinine 0.79 mg/dL (0.52-1.25) 04/15/20 05:03 Est GFR ( Amer) > 60 (>60) 04/15/20 05:03 Est GFR (MDRD) Non-Af > 60 (>60) 04/15/20 05:03 Glucose 104 mg/dL (75-110) 04/15/20 05:03 Hemoglobin A1c % 5.8 % (4.7-6.0) 04/14/20 04:57 Calcium 8.9 mg/dL (8.4-10.2) 04/15/20 05:03 Magnesium 1.8 mg/dL (1.6-2.3) 04/13/20 12:50 Iron 19.1 ug/dL (37-170) L 04/15/20 05:03 TIBC 435 ug/dL (250-450) 04/15/20 05:03 % Saturation 4 % 04/15/20 05:03 Ferritin 8.16 ng/mL (6.2-137.0) 04/15/20 05:03 Total Bilirubin 0.4 mg/dL (0.2-1.3) 04/13/20 12:50 Direct Bilirubin 0.1 mg/dL (0.0-0.4) 04/13/20 12:50 Neonat Total Bilirubin Not Reportable 04/13/20 12:50 Neonat Direct Bilirubin Not Reportable 04/13/20 12:50 Neonat Indirect Bili Not Reportable 04/13/20 12:50 AST 46 U/L (14-36) H 04/13/20 12:50 ALT 33 U/L (<35) 04/13/20 12:50 Alkaline Phosphatase 68 U/L (38-126) 04/13/20 12:50 Troponin I 0.028 ng/mL 04/13/20 16:49 C-Reactive Protein 6.7 mg/L (<10.0) 04/13/20 12:50 NT-Pro-B Natriuret Pep 422 pg/mL (<125) H 04/15/20 05:03 Total Protein 6.5 g/dL (6.3-8.2) 04/13/20 12:50 Albumin 3.4 g/dL (3.5-5.0) L 04/13/20 12:50 Triglycerides 58 mg/dL (<150) 04/14/20 04:57 Cholesterol 127.04 mg/dL (0-200) 04/14/20 04:57 LDL Cholesterol Direct 69 mg/dL (<100) 04/14/20 04:57 VLDL Cholesterol 12.0 mg/dL (10-31) 04/14/20 04:57 HDL Cholesterol 43 mg/dL (>40) 04/14/20 04:57 Vitamin B12 > 1000.0 pg/mL (239-931) H 04/15/20 05:03 Folate 7.50 ng/mL (>2.76) 04/15/20 05:03 TSH 0.94 uIU/mL (0.47-4.68) 04/14/20 04:57 Serum HCG, Qual NEGATIVE (NEGATIVE) 04/13/20 12:50 Urine Color YELLOW 04/16/20 09:45 Urine Appearance SLIGHTLY-CLOUDY 04/16/20 09:45 Urine pH 6.0 (5.0-9.0) 04/16/20 09:45 Ur Specific [place] 1.013 04/16/20 09:45 Urine Protein NEGATIVE mg/dL (NEGATIVE) 04/16/20 09:45 Urine Glucose (UA) NEGATIVE mg/dL (NEGATIVE) 04/16/20 09:45 Urine Ketones NEGATIVE mg/dL (NEGATIVE) 04/16/20 09:45 Urine Blood NEGATIVE (NEGATIVE) 04/16/20 09:45 Urine Nitrite NEGATIVE (NEGATIVE) 04/16/20 09:45 Urine Nitrite (Reflex) NEGATIVE (NEGATIVE) 04/13/20 16:49 Urine Bilirubin NEGATIVE (NEGATIVE) 04/16/20 09:45 Urine Urobilinogen NEGATIVE mg/dL (<2.0) 04/16/20 09:45 Ur Leukocyte Esterase SMALL (NEGATIVE) H 04/16/20 09:45 Leukocyte Esterase Rfl NEGATIVE (NEGATIVE) 04/13/20 16:49 Urine WBC (Auto) 5 /HPF 04/16/20 09:45 Urine RBC (Auto) 0 /HPF 04/16/20 09:45 Urine Bacteria (Auto) 1+ /HPF 04/14/20 00:45 Urine WBC (Reflex) < 1 /HPF 04/13/20 16:49 Squamous Epi Cells Auto 5 /HPF 04/16/20 09:45 Urine Mucus (Auto) RARE /LPF 04/16/20 09:45 Urine Ascorbic Acid 40 (NEGATIVE) H 04/16/20 09:45 COVID-19 Source See comment 04/13/20 18:51 COVID-19 (AMY) Not Detected (Not Detect) 04/13/20 18:51 04/13/20 04/13/20 04/15/20 12:50 16:49 05:03 Troponin I 0.020 0.028 NT-Pro-B Natriuret Pep 1080 H 422 H Impressions: Chest X-Ray 04/13/20 12:24 IMPRESSION: Cardiomegaly with no [place] pulmonary edema. Chest/Abdomen CTA 04/13/20 14:24 IMPRESSION: 1. NORMAL CTA OF THE CHEST. NO PULMONARY EMBOLI. 2. CARDIOMEGALY WITH FAINT HAZY GROUND-GLASS OPACITIES SCATTERED THROUGHOUT BOTH LUNGS. PROBABLY DUE TO DEVELOPING PULMONARY EDEMA. PNEUMONITIS OR INFECTIOUS ETIOLOGY LESS LIKELY BUT NOT EXCLUDED. 3. PROBABLE ANTERIOR ABDOMINAL WALL HERNIA, NOT COMPLETELY IMAGED. Plan Plan of Treatment: Patient discharged home in stable condition. She is advised follow-up with her primary care provider within 1 week. She has been provided a new patient appointment with Dr. Platt for further management of her CHF. She is advised to take her medications as prescribed. She is instructed to eat a heart healthy, fluid restricted diet. She is advised to return to emergency department, as needed, for concerning symptoms. Time Spent: Greater than 30 Minutes Stroke Is this a Stroke Patient?: No Acute Heart Failure Is this a Heart Failure Patient?: Yes Documentation of LVEF assessment?: Yes LVEF: LVEF Greater Than 40% Anticoagulant Therapy: N/A Discharged on Evidence-Based Beta Blockers: Yes Discharged on ARNI?: No-Document Contraindications Reason(s) not discharged on ARNI: Other ARNI Reason - Other: Patient states she cannot afford co-pay Discharged on ARB?: Yes Discharged on ACEI?: N/A Discharged on ARB For LVEF <35%, discharged on Aldosterone Antagonist?: N/A (LVEF > or = 35%) Follow-up Appointment scheduled within 7 days?: Yes
[2020-04-17] MEDS ORDERED: PAROXETINE HCL 20 MG PO SCH (08:00)
== END 2020-04-16 14:39 | disposition home or self-care (01) | DRG 292 ==
LOC: ER 12:13 → EH 16:17 → OBSVTOIN 16:17 → INTOOBSV 16:17 → 3N 04-14 01:00 → 3S 04-15 17:53
PROVIDERS: ADMIT Internal Medicine; ATTEND Registered Nurse
DX: I11.0 Hypertensive heart disease with heart failure (principal); Z68.42 Body mass index [BMI] 45.0-49.9, adult; I50.43 Acute on chronic combined systolic (congestive) and diastolic (congestive) heart failure; I16.0 Hypertensive urgency; D50.9 Iron deficiency anemia, unspecified; E66.01 Morbid (severe) obesity due to excess calories; J45.909 Unspecified asthma, uncomplicated; Z20.828 Contact with and (suspected) exposure to other viral communicable diseases; E11.9 Type 2 diabetes mellitus without complications; I27.20 Pulmonary hypertension, unspecified; F31.9 Bipolar disorder, unspecified; Z90.49 Acquired absence of other specified parts of digestive tract; Z83.3 Family history of diabetes mellitus; Z82.49 Family history of ischemic heart disease and other diseases of the circulatory system; Z86.711 Personal history of pulmonary embolism; Z91.14 Patient's other noncompliance with medication regimen; Z79.82 Long term (current) use of aspirin; Z79.51 Long term (current) use of inhaled steroids; Z79.899 Other long term (current) drug therapy
CPT/HCPCS: 36415; 36600; 71045; 71275; 80048; 80053; 80061; 81001; 82607; 82728; 82746; 82803; 83036; 83540; 83550; 83735; 83880; 84443; 84484; 84703; 85025; 85027; 85045; 85379; 85384; 86140; 87635; 90471; 90686; 93005; 93010; 93306; 94660; 96374; 96375; 99285; C9803; G0008; G0378; J1650; J1940; J3490

== ENCOUNTER 2020-05-20 19:39 | Inpatient (IN) | payer OTHER ==
--- NOTE | 2020-05-20 19:56 | ER Document Report ---
ED Medical Screen (RME) - General Chief Complaint: Leg Swelling Stated Complaint: LEG SWELLING WITH PAIN Time Seen by Provider: 05/20/20 19:45 Primary Care Provider: KAM,MANNY [Primary Care Provider] - Follow up as needed Information source: Patient Notes: Patient presents with bilateral lower extremity swelling with the right worse than the left for the past several days. Patient complains of leg pain to the right lower extremity. Patient reports a 10 pound weight gain over the past 2 weeks. Patient states she is had cough with shortness of breath for the past 2 days. Patient does have a history of CHF, pulmonary hypertension, hypertension and diabetes. I have greeted and performed a rapid initial assessment of this patient. A comprehensive ED assessment and evaluation of the patient, analysis of test results and completion of the medical decision making process will be conducted by additional ED providers. TRAVEL OUTSIDE OF THE [place] IN LAST 30 DAYS: No - Related Data Allergies/Adverse Reactions: No Known Allergies Allergy (Verified 04/03/19 16:57) Past Medical History - Past Medical History Cardiac Medical History: Reports: Hx Congestive Heart Failure, Hx Hypertension Denies: Hx Atrial Fibrillation, Hx Coronary Artery Disease, Hx DVT, Hx Heart Attack, Hx Hypercholesterolemia, Hx Pulmonary Embolism, Hx Heart Murmur Pulmonary Medical History: Reports: Hx Asthma Denies: Hx COPD, Hx Respiratory Failure, Hx Tuberculosis Neurological Medical History: Denies: Hx Seizures Endocrine Medical History: Reports: Hx Diabetes Mellitus Type 2. Denies: Hx Diabetes Mellitus Type 1, Hx Hyperthyroidism, Hx Hypothyroidism Renal/ Medical History: Denies: Hx Peritoneal Dialysis GI Medical History: Denies: Hx Crohn's Disease, Hx Gastroesophageal Reflux Disease, Hx Ulcerative Colitis Musculoskeltal Medical History: Denies Hx Arthritis, Denies Hx Gout Skin Medical History: Denies Hx Eczema, Denies Hx Psoriasis Psychiatric Medical History: Reports: Hx Anxiety, Hx Depression - anxiety Past Surgical History: Reports: Hx Appendectomy - Immunizations Hx Diphtheria, Pertussis, Tetanus Vaccination: Yes Physical Exam - Vital signs Vitals: Temp Pulse Resp BP Pulse Ox 99.0 F 123 H 28 H 183/120 H 94 05/20/20 19:48 05/20/20 19:48 05/20/20 19:48 05/20/20 19:48 05/20/20 19:48 - Respiratory Respiratory status: Labored - Slightly labored, Tachypnea Breath sounds: Nonproductive cough, Other - Diminished breath sounds bilateral lower lobes - Cardiovascular Rhythm: Tachycardia Course - Vital Signs Vital signs: Temp Pulse Resp BP Pulse Ox 99.0 F 123 H 28 H 183/120 H 94 05/20/20 19:48 05/20/20 19:48 05/20/20 19:48 05/20/20 19:48 05/20/20 19:48 Doctor's Discharge - Discharge [facility] - Follow up as needed
[2020-05-20 20:35] LABS: ABSOLUTE BASOPHILS # (AUTO) 0.1 10^3/uL (0.0-0.2); ABSOLUTE EOSINOPHILS # (AUTO) 0.2 10^3/uL (0.0-0.6); ABSOLUTE LYMPHOCYTES (AUTO) 2.7 10^3/uL (0.5-4.7); ABSOLUTE MONOCYTES (AUTO) 1.1 10^3/uL (0.1-1.4); BASOPHILS % (AUTO) 0.5 % (0-2); EOSINOPHILS % (AUTO) 1.8 % (0-6); HEMATOCRIT 29.4 % (36.0-47.0); HEMOGLOBIN 8.5 g/dL (12.0-15.5); LYMPHOCYTES % (AUTO) 22.4 % (13-45); MEAN CORPUSCULAR HEMOGLOBIN 18.4 pg (27.0-33.4); MEAN CORPUSCULAR VOLUME 64 fl (80-97); MONOCYTES % (AUTO) 9.1 % (3-13); PLATELET COUNT 321 10^3/uL (150-450); RED BLOOD COUNT 4.61 10^6/uL (3.72-5.28); RED CELL DISTRIBUTION WIDTH 21.1 % (11.5-14.0); SEGMENTED NEUTROPHILS % (AUTO) 66.2 % (42-78); TOTAL CELLS COUNTED % (AUTO) 100 %
[2020-05-20 20:48] LABS: APPEARANCE,URINE SLIGHTLY-CLOUDY; BILIRUBIN,URINE NEGATIVE (NEGATIVE); COLOR,URINE YELLOW; GLUCOSE, URINE NEGATIVE (NEGATIVE); KETONES,URINE NEGATIVE (NEGATIVE); LEUKOCYTE ESTERASE,URINE TRACE (NEGATIVE); NITRITE,URINE NEGATIVE (NEGATIVE); PROTEIN,URINE >=500 mg/dL (NEGATIVE); URINE SPECIFIC GRAVITY 1.014; UROBILINOGEN,URINE NEGATIVE mg/dL (<2.0)
[2020-05-20 20:49] LABS: ALBUMIN 3.3 g/dL (3.5-5.0); ALKALINE PHOSPHATASE 69 U/L (38-126); ANION GAP 5 (5-19); ASPARTATE AMINO TRANSFERASE 42 U/L (14-36); BILIRUBIN,DIRECT 0.1 mg/dL (0.0-0.4); BILIRUBIN,TOTAL 0.5 mg/dL (0.2-1.3); BLOOD UREA NITROGEN 12 mg/dL (7-20); CALCIUM 8.5 mg/dL (8.4-10.2); CARBON DIOXIDE 28 mmol/L (22-30); CHLORIDE 105 mmol/L (98-107); GLUCOSE 118 mg/dL (75-110); POTASSIUM 4.1 mmol/L (3.6-5.0); TOTAL PROTEIN 6.5 g/dL (6.3-8.2)
[2020-05-20 20:56] LABS: ANISOCYTOSIS 3+; HYPOCHROMASIA 1+; PLATELET COMMENT ADEQUATE; POLYCHROMASIA SLIGHT
[2020-05-20 21:10] LABS: TROPONIN I 0.022 ng/mL
--- NOTE | 2020-05-20 21:24 | RADIOLOGY REPORT (SQ) ---
US LOWER EXTREMITY VEINS HISTORY: Leg pain and swelling. COMPARISON: None. TECHNIQUE: Grayscale, color Doppler, and spectral Doppler images of the right lower extremity were performed. FINDINGS: The mid and distal portions of the right femoral vein were poorly visualized. The visualized portions of the common femoral, superficial femoral and popliteal veins are patent and compressible. Normal augmentation and color Doppler blood flow in the aforementioned veins. The visualized calf veins are also patent. Diffuse subcutaneous edema is present. IMPRESSION: No DVT in the right lower extremity.
--- NOTE | 2020-05-20 21:39 | RADIOLOGY REPORT (SQ) ---
EXAM DESCRIPTION: Site: CHEST 2 VIEWS RP: XR CHEST 2 VIEWS Views: 2 CLINICAL HISTORY: 35 years Female; cough, sob; COMPARISON: None. FINDINGS: Lungs: Mild central interstitial edema. No pneumothorax or pleural effusion. Mediastinum: Heart is enlarged, as on prior exam. No superior mediastinal widening. Bones: Midthoracic dextrocurvature is again noted. IMPRESSION: 1. Cardiomegaly with mild pulmonary vascular congestion.
[2020-05-20] MEDS ORDERED: LABETALOL HCL INJ 20 MG/4 ML DISP.SYRIN IV ONE (22:13)
[2020-05-20] MEDS ORDERED: FUROSEMIDE INJ/PF 40 MG/4 ML SDV IV ONE (22:14)
--- NOTE | 2020-05-20 22:16 | ER Document Report ---
ED Respiratory Problem - General Chief Complaint: Shortness Of Breath Stated Complaint: LEG SWELLING WITH PAIN Time Seen by Provider: 05/20/20 19:45 TRAVEL OUTSIDE OF THE [place] IN LAST 30 DAYS: No - HPI Notes: Patient is a 35-year-old female with a past medical history of CHF who presents with shortness of breath. Patient states that she has gained 10 pounds over a short period of time. She also states that she has increased edema in her legs and into her abdomen. Her shortness of breath has been present for about 1 week but worsened yesterday and today. She denies any chest pain. No cough or cold symptoms. No Covid exposures. Patient was recently hospitalized for this about 1 month ago. She states she has been compliant with her Lasix and metoprolol and has not missed any doses. She states they told her she could increase her Lasix if needed and she states that she has been taking 2 pills recently instead of 1. She is unsure what the dosage of the Lasix is. She also mentions she has had about 2 days of worsening leg pain worse on the right. She denies any trauma. - Related Data Allergies/Adverse Reactions: No Known Allergies Allergy (Verified 04/03/19 16:57) Past Medical History - General Information source: Patient - Social History Smoking Status: Never Smoker Family History: DM, Hypertension - Past Medical History Cardiac Medical History: Reports: Hx Congestive Heart Failure, Hx Hypertension Denies: Hx Atrial Fibrillation, Hx Coronary Artery Disease, Hx DVT, Hx Heart Attack, Hx Hypercholesterolemia, Hx Pulmonary Embolism, Hx Heart Murmur Pulmonary Medical History: Reports: Hx Asthma Denies: Hx COPD, Hx Respiratory Failure, Hx Tuberculosis Neurological Medical History: Denies: Hx Seizures Endocrine Medical History: Reports: Hx Diabetes Mellitus Type 2. Denies: Hx Diabetes Mellitus Type 1, Hx Hyperthyroidism, Hx Hypothyroidism Renal/ Medical History: Denies: Hx Peritoneal Dialysis GI Medical History: Denies: Hx Crohn's Disease, Hx Gastroesophageal Reflux Disease, Hx Ulcerative Colitis Musculoskeletal Medical History: Denies Hx Arthritis, Denies Hx Gout Skin Medical History: Denies Hx Eczema, Denies Hx Psoriasis Psychiatric Medical History: Reports: Hx Anxiety, Hx Depression - anxiety Past Surgical History: Reports: Hx Appendectomy - Immunizations Hx Diphtheria, Pertussis, Tetanus Vaccination: Yes Review of Systems - Review of Systems Notes: CONSTITUTIONAL: No fever, fatigue or weight loss. Positive for weight gain. SKIN: No rash. HENT: No congestion, ear pain, or sore throat. CARDIOVASCULAR: No chest pain. Positive for lower extremity edema. RESPIRATORY: Positive for chronic cough. Positive for shortness of breath. GASTROINTESTINAL: No abdominal pain, nausea, vomiting, bloody stools or diarrhea. GENITOURINARY: No dysuria. MUSCULOSKELETAL: No joint pain or swelling. LYMPHATIC: No swollen glands. NEUROLOGIC: No seizures. No headache, focal weakness or sensory changes. HEMATOLOGIC: No unusual bruising or bleeding. PSYCHIATRIC: No depression or anxiety. Physical Exam - Vital signs Vitals: Temp Pulse Resp BP Pulse Ox 99.0 F 123 H 28 H 183/120 H 94 05/20/20 19:48 05/20/20 19:48 05/20/20 19:48 05/20/20 19:48 05/20/20 19:48 - General In distress: Moderate Notes: VITAL SIGNS: Hypertensive and tachycardic. GENERAL: No acute distress, non-toxic appearance. HEAD: Normal with no signs of head trauma. EYES: Conjunctiva normal, no discharge. EARS: Hearing grossly intact. NOSE: Normal. NECK: Normal range of motion, no tenderness, supple, no lymphadenopathy, No adenopathy, no JVD. CHEST: Coarse lung sounds bilaterally. CARDIAC: Regular rate and rhythm. VASCULAR: +3 pitting edema in bilateral lower extremities extending up to the knee. ABDOMEN: Normal and soft with no tenderness MUSCULOSKELETAL: Good range of motion of all major joints. Extremities without clubbing, cyanosis or edema. NEUROLOGICAL: Alert and oriented x 3. No focal sensory or strength deficits. Speech normal. Follows commands appropriately. PSYCHIATRIC: Normal Affect, judgement and mood. SKIN: Normal appearance with no rashes or lesions. Course - Re-evaluation Re-evalutation: 05/20/20 23:17 Patient was significantly tachycardic and hypertensive upon arrival. She was given labetalol and Lasix. Likely, this is a CHF exacerbation as she has gained weight, has an elevated BNP, as well as an x-ray with pulmonary edema. Likely, patient will need to be admitted. Patient had improvement in her heart rate and blood pressure after labetalol and lasix. She still occasionally gets tachypneic with movement and hypoxic to the low 90s. I discussed with the hospitalist who recommended BiPAP. We will call respiratory. Patient is in agreement to admission. 05/21/20 00:18 05/21/20 01:37 Hospitalist evaluated the patient and recommended nasal cannula oxygen instead. - Vital Signs Vital signs: Temp Pulse Resp BP Pulse Ox 98.7 F 92 18 164/86 H 93 05/21/20 12:13 05/21/20 12:13 05/21/20 12:13 05/21/20 12:13 05/21/20 12:13 - Laboratory Results Result Diagrams: 05/21/20 07:24 05/21/20 07:24 Laboratory Results Interpreted: 05/20/20 05/20/20 05/20/20 20:10 20:10 20:10 WBC 12.0 H Hgb 8.5 L Hct 29.4 L MCV 64 L MCH 18.4 L MCHC 29.0 L RDW 21.1 H Glucose 118 H AST 42 H NT-Pro-B Natriuret Pep 1020 H Albumin 3.3 L Urine Protein Ur Leukocyte Esterase 05/20/20 20:15 WBC Hgb Hct MCV MCH MCHC RDW Glucose AST NT-Pro-B Natriuret Pep Albumin Urine Protein >=500 H Ur Leukocyte Esterase TRACE H Critical Laboratory Results Reviewed: No Critical Results - Radiology Results Critical Radiology Results Reviewed: No Critical Results - EKG Interpretation by Me EKG shows normal: Sinus rhythm Rate: Tachycardia Rhythm: NSR When compared to previous EKG there are: No significant change Additional EKG results interpreted by me: 05/21/20 00:21 Sinus tachycardia at a rate of 123. QTc 464. No acute ST changes. Artifact present. No significant change from previous EKG. Critical Care Note - Critical Care Note Total time excluding time spent on procedures (mins): 40 Comments: Upon my evaluation, this patient had a high probability of imminent or life- threatening deterioration due to acute CHF exacerbation, which required my direct attention, intervention, and personal management. I have personally provided 40 minutes of critical care time. Time includes review of laboratory data, radiology results, discussion with consultants, and monitoring for potential decompensation. Interventions were performed as documented above. Discharge - Discharge Clinical Impression: Edema of both lower extremities, Hypertensive emergency Acute exacerbation of CHF (congestive heart failure) Qualifiers: Heart failure type: combined systolic and diastolic Qualified Code(s): I50.43 - Acute on chronic combined systolic (congestive) and diastolic (congestive) heart failure Condition: Stable Disposition: ADMITTED INPATIENT Admitting Provider: [facility] Admitted: IMLUIS
--- NOTE | 2020-05-21 01:32 | PDOC H&P ---
History of Present Illness Admission Date/PCP: 05/21/20 00:40 GEOVANI RAE Patient complains of: Swelling and shortness of breath History of Present Illness: AXEL WELLS is a 35 year old female The patient is suffering from nonischemic cardiomyopathy. Previously she had combine systolic and diastolic dysfunction with depressed left ventricular ejection fraction. Echocardiogram last month revealed left ventricular ejection fraction 45 to 50% with minimal left ventricular hypokinesis. Grade 3 diastolic dysfunction. This was an improvement. No significant heart valve abnormalities. The patient had several admissions for heart failure exacerba tion. Last hospital admission was in April this year. For the last 2 to 3 days the patient was developing increasing shortness of breath, increasing swelling of both legs and some generalized edema. Her exercise tolerance was declining. In the emergency department she was given intravenous furosemide, started feeling slightly better. Her oxygen saturation was 88% on room air, on 2 L of oxygen is 98%. On nasal oxygen she does not appear to be in any distress. She did not have any chest pain. Past Medical History Past Medical History: Morbid obesity with a BMI of 53.6 Cardiac Medical History: Reports: Congestive Heart Failure, Hypertension Denies: Atrial Fibrillation, Coronary Artery Disease, DVT, Myocardial Infarc tion, Hyperlipidema, Pulmonary Embolism, Heart Murmur Pulmonary Medical History: Reports: Asthma Denies: Chronic Obstructive Pulmonary Disease (COPD), Respiratory Failure, Tu berculosis Neurological Medical History: Denies: Seizures Endocrine Medical History: Reports: Diabetes Mellitus Type 2 Denies: Diabetes Mellitus Type 1, Hyperthyroidism, Hypothyroidism Renal/ Medical History: Reports: None GI Medical History: Denies: Crohn's Disease, Gastroesophageal Reflux Disease, Ulcerative Colitis Musculoskeltal Medical History: Denies: Arthritis, Gout Skin Medical History: Denies: Eczema, Psoriasis Psychiatric Medical History: Reports: Depression - anxiety Hematology: Reports: Anemia Denies: Sickle Cell Disease, Bleeding Tendencies Past Surgical History Past Surgical History: Reports: Appendectomy Social History Lives with: Family Smoking Status: Never Smoker Frequency of Alcohol Use: None Hx Recreational Drug Use: No Drugs: None Hx Prescription Drug Abuse: No Family History Family History: DM, Hypertension Parental Family History Reviewed: Yes Children Family History Reviewed: Yes Sibling(s) Family History Reviewed.: Yes Medication/Allergy Home Medications: Albuterol Sulfate [Proair HFA Inhalation Aerosol 8.5 gm MDI] 2 puff IH QIDP PRN 11/05/20 Ipratropium [place] [Atrovent Hfa] 1 puff PO QID 04/15/20 Metoprolol Succinate [Toprol Xl] 200 mg PO DAILY 04/15/20 Paroxetine HCl [Paxil] 20 mg PO QAM 04/15/20 Topiramate 50 mg PO BID 04/15/20 Acetaminophen [Tylenol 325 mg Tablet] 650 mg PO Q4HP PRN tablet 04/16/20 Aspirin [Ecotrin 81 mg EC Tablet] 81 mg PO DAILY #90 tabec 04/16/20 Docusate Sodium [Colace 100 mg Capsule] 100 mg PO DAILY capsule 04/16/20 Ferrous Sulfate [Feosol 325 mg Tablet] 325 mg PO DAILY #90 tablet 04/16/20 Furosemide [Lasix 80 mg Tablet] 80 mg PO DAILY #30 tablet 04/16/20 Losartan Potassium [Cozaar 25 mg Tablet] 25 mg PO Q12 #60 tablet 04/16/20 Metoprolol Succinate [Toprol Xl 50 mg Tab.sr] 200 mg PO Q12 tab.sr.24h 04/16/20 Allergies/Adverse Reactions: No Known Allergies Allergy (Verified 04/03/19 16:57) Review of Systems Constitutional: PRESENT: weakness, weight gain. ABSENT: chills, fever(s) Cardiovascular: PRESENT: dyspnea on exertion, edema Respiratory: PRESENT: dyspnea. ABSENT: cough, hemoptysis Gastrointestinal: ABSENT: abdominal pain, constipation, diarrhea, hematemesis, hematochezia, nausea, vomiting Genitourinary: ABSENT: dysuria, hematuria Integumentary: ABSENT: rash, wounds Neurological: ABSENT: abnormal gait, abnormal speech, confusion, dizziness, focal weakness, syncope Hematologic/Lymphatic: PRESENT: other - Chronic anemia ,hemoglobin was 8.1 during previous hospitalization. Physical Exam Vital Signs: Temp Pulse Resp BP Pulse Ox 99.0 F 123 H 28 H 183/120 H 95 05/20/20 19:48 05/20/20 19:48 05/20/20 19:48 05/20/20 19:48 05/20/20 19:54 Intake & Output 05/19/20 05/20/20 05/21/20 06:59 06:59 06:59 Weight 155.3 kg General appearance: PRESENT: no acute distress, morbidly obese Head exam: PRESENT: atraumatic Eye exam: PRESENT: conjunctiva pink, EOMI, PERRLA. ABSENT: scleral icterus Ear exam: PRESENT: normal external ear exam Neck exam: PRESENT: JVD. ABSENT: carotid bruit, thyromegaly Respiratory exam: PRESENT: rales - Over both lower lung lewis Cardiovascular exam: PRESENT: gallop - S3 gallop, RRR Pulses: PRESENT: normal dorsalis pedis pul GI/Abdominal exam: PRESENT: normal bowel sounds, soft, other - Very obese abdominal wall.. ABSENT: distended, guarding, mass, organolmegaly, rebound, tenderness Rectal exam: PRESENT: deferred Extremities exam: PRESENT: full ROM, +2 edema. ABSENT: calf tenderness Neurological exam: PRESENT: alert, awake, oriented to person, oriented to place, oriented to time, oriented to situation, CN II-XII grossly intact. ABSENT: motor sensory deficit Skin exam: PRESENT: dry, intact, warm. ABSENT: cyanosis, rash Results Laboratory Results: 05/20/20 20:10 05/20/20 20:10 05/20/20 05/20/20 05/20/20 20:10 20:10 20:10 WBC 12.0 H RBC 4.61 Hgb 8.5 L Hct 29.4 L MCV 64 L MCH 18.4 L MCHC 29.0 L RDW 21.1 H Plt Count 321 Seg Neutrophils % 66.2 Sodium 137.7 Potassium 4.1 Chloride 105 Carbon Dioxide 28 Anion Gap 5 BUN 12 Creatinine 0.85 Est GFR ( Amer) > 60 Glucose 118 H Calcium 8.5 Total Bilirubin 0.5 AST 42 H Alkaline Phosphatase 69 Total Protein 6.5 Albumin 3.3 L Serum HCG, Qual NEGATIVE Urine Color Urine Appearance Urine pH Ur Specific [place] Urine Protein Urine Glucose (UA) Urine Ketones Urine Blood Urine Nitrite Ur Leukocyte Esterase Urine WBC (Auto) Urine RBC (Auto) 05/20/20 20:15 WBC RBC Hgb Hct MCV MCH MCHC RDW Plt Count Seg Neutrophils % Sodium Potassium Chloride Carbon Dioxide Anion Gap BUN Creatinine Est GFR ( Amer) Glucose Calcium Total Bilirubin AST Alkaline Phosphatase Total Protein Albumin Serum HCG, Qual Urine Color YELLOW Urine Appearance SLIGHTLY-CLOUDY Urine pH 6.0 Ur Specific [place] 1.014 Urine Protein >=500 H Urine Glucose (UA) NEGATIVE Urine Ketones NEGATIVE Urine Blood NEGATIVE Urine Nitrite NEGATIVE Ur Leukocyte Esterase TRACE H Urine WBC (Auto) 4 Urine RBC (Auto) 1 05/20/20 20:10 Troponin I 0.022 NT-Pro-B Natriuret Pep 1020 H Impressions: Chest X-Ray 05/20/20 19:54 IMPRESSION: 1. Cardiomegaly with mild pulmonary vascular congestion. Venous Doppler Study 05/20/20 19:54 IMPRESSION: No DVT in the right lower extremity. Assessment and Plan - Diagnosis (2) CHF, acute on chronic Qualifiers: Heart failure type: combined systolic and diastolic Qualified Code(s): I50.43 - Acute on chronic combined systolic (congestive) and diastolic (congestive) heart failure Is this a current diagnosis for this admission?: Yes Plan: I believe now this is mainly diastolic dysfunction. Her systolic function was near normal on echocardiogram 1 month ago. Intravenous furosemide. Monitor renal function and electrolytes. Potassium replacement as needed. I increase losartan from 25 mg twice a day to 100 mg daily. Continue 200 mg metoprolol succinate daily. Nitropaste. No need to repeat echocardiogram. Check cardiac enzymes. (3) Hypertensive emergency Is this a current diagnosis for this admission?: Yes Plan: She received intravenous labetalol in the emergency department. Now her blood pressure is better. She may need additional blood pressure medication if metoprolol and losartan will not control her blood pressure. (4) Edema of both lower extremities Is this a current diagnosis for this admission?: Yes Plan: Secondary to congestive heart failure. Right lower extremity venous Doppler was negative for DVT. (5) Person under investigation for COVID-19 Is this a current diagnosis for this admission?: Yes Plan: She has bilateral pulmonary infiltrates most likely related to heart failure. She is afebrile. She may have asymptomatic coronavirus infection. COVID-19 test pending. (6) Anemia Qualifiers: Anemia type: unspecified type Qualified Code(s): D64.9 - Anemia, unspecified Is this a current diagnosis for this admission?: Yes Plan: She has chronic anemia, hemoglobin was 8.1 last month. She was on oral iron supplement. I will check anemia studies. If indicated she may benefit from intravenous iron. (7) DM type 2 (diabetes mellitus, type 2) Qualifiers: Diabetes mellitus correction insulin use: without correction use Diabetes mellitus complication status: without complication Qualified Code(s): E11.9 - Type 2 diabetes mellitus without complications Is this a current diagnosis for this admission?: Yes Plan: She has diet-controlled type 2 diabetes. Diabetic diet. Monitor blood glucose. Correction dose insulin if needed. Hemoglobin A1c. (8) Morbid obesity Is this a current diagnosis for this admission?: Yes Plan: Her BMI is 53.6. Weight loss would be helpful for her. - Plan Summary Summary: The patient is going to be admitted with congestive heart failure exacerbation to telemetry unit. Her systolic function improved and now her heart failure is mainly diastolic with minimal systolic component. She has no history of ischemic heart disease. Her blood pressure was elevated, she may need more aggressive blood pressure regimen if blood pressure not normalizing with di uresis. She is mildly hypoxic but she is stable without any respiratory distress on 2 L/min nasal oxygen. She has bilateral pulmonary infiltrates secondary to pulmonary edema. Coronavirus test is pending. - Time Time Spent with patient: 35 or more minutes Anticipated Discharge Disposition: Home, Self Care Anticipated Discharge Timeframe: within 72 hours - Inpatient Certification Based on my medical assessment, after consideration of the patient's comorbidities, presenting symptoms, or acuity I expect that the services needed warrant INPATIENT care.: Yes I certify that my determination is in accordance with my understanding of Medicare's requirements for reasonable and necessary INPATIENT services [42 CFR 412.3e].: Yes Medical Necessity: Failure to Improve With Outpatient Therapy, Risk of Complication if Not Cared For in Hospital
[2020-05-21] MEDS ORDERED: NITROGLYCERIN 2% OINTMENT 1 GM PACKET ONE (01:54)
[2020-05-21] MEDS ORDERED: LABETALOL HCL INJ 20 MG/4 ML DISP.SYRIN IV ONE (04:15)
[2020-05-21] MEDS: NITROGLYCERIN 2% OINTMENT 1 GM PACKET TP SCH ×3 (05:40→17:29)
[2020-05-21] MEDS: FUROSEMIDE INJ/PF 40 MG/4 ML SDV IV SCH ×4 (05:41→23:14)
[2020-05-21 07:41] LABS: HEMATOCRIT 28.7 % (36.0-47.0); HEMOGLOBIN 8.4 g/dL (12.0-15.5); MEAN CORPUSCULAR HEMOGLOBIN 18.7 pg (27.0-33.4); MEAN CORPUSCULAR HGB CONC 29.3 g/dL (32.0-36.0); PLATELET COUNT 324 10^3/uL (150-450); RED BLOOD COUNT 4.47 10^6/uL (3.72-5.28); WHITE BLOOD COUNT 9.9 10^3/uL (4.0-10.5)
[2020-05-21 07:52] LABS: BLOOD UREA NITROGEN 10 mg/dL (7-20); CALCIUM 8.4 mg/dL (8.4-10.2); CHOLESTEROL 129.06 mg/dL (0-200); GLUCOSE 107 mg/dL (75-110); TRIGLYCERIDES 70 mg/dL (<150)
[2020-05-21 07:57] LABS: CARBON DIOXIDE 33 mmol/L (22-30); CHLORIDE 102 mmol/L (98-107)
[2020-05-21 08:04] LABS: DIRECT LDL 66 mg/dL (<100)
[2020-05-21 08:05] LABS: ANION GAP 4 (5-19); TROPONIN I 0.013 ng/mL
[2020-05-21 08:12] LABS: MEAN CORPUSCULAR VOLUME 64 fl (80-97)
[2020-05-21 08:19] LABS: ABSOLUTE LYMPHOCYTES# (MANUAL) 1.9 10^3/uL (0.5-4.7); ABSOLUTE MONOCYTES # (MANUAL) 0.3 10^3/uL (0.1-1.4); BAND NEUTROPHILS % (MANUAL) 2 % (3-5); BASOPHILS % (MANUAL) 0 % (0-2); EOSINOPHILS % (MANUAL) 3 % (0-6); LYMPHOCYTES % (MANUAL) 19 % (13-45); MONOCYTES % (MANUAL) 3 % (3-13); NUCLEATED RED BLOOD CELLS 3 /100 WBC (0); SEGMENTED NEUTROPHILS % (MAN) 73 % (42-78); TOTAL CELLS COUNTED 100
[2020-05-21 08:20] LABS: ANISOCYTOSIS 3+; PLATELET COMMENT ADEQUATE
[2020-05-21 08:21] LABS: HYPOCHROMASIA 3+; OVALOCYTES 1+; POIKILOCYTOSIS 1+; POLYCHROMASIA 1+; TEAR DROP CELLS 1+
[2020-05-21 08:22] LABS: TARGET CELLS 1+
[2020-05-21] MEDS ORDERED: LOSARTAN POTASSIUM 50 MG TABLET PO SCH ×2 (10:00)
[2020-05-21] MEDS: ASPIRIN 81 MG TABLET, ENT COATED PO SCH (10:02)
[2020-05-21] MEDS: METOPROLOL SUCCINATE 50 MG TAB.SR.24H PO SCH (10:02)
[2020-05-21] MEDS: ENOXAPARIN SODIUM INJ 40 MG/0.4 ML DISP.SYRIN SUBCUT SCH (10:03)
[2020-05-21 10:09] LABS: PATH REVIEW PATHOLOGIST REVIEWED
--- NOTE | 2020-05-21 13:42 | EKG REPORT ---
SEVERITY:- BORDERLINE ECG - SINUS TACHYCARDIA PROBABLE LEFT ATRIAL ABNORMALITY : Confirmed by: Wes Riley 21-May-2020 13:41:24
--- NOTE | 2020-05-21 13:42 | EKG REPORT ---
SEVERITY:- ABNORMAL ECG - SINUS TACHYCARDIA PROBABLE LEFT VENTRICULAR HYPERTROPHY BORDERLINE PROLONGED QT INTERVAL : Confirmed by: Wes Riley 21-May-2020 13:41:19
[2020-05-21] MEDS ORDERED: ALBUTEROL SULFATE HFA (90 MCG/PUFF) 8 GM MDI (1 MDI/ER DISP) IH PRN (17:32)
[2020-05-21] MEDS ORDERED: ALBUTEROL SULFATE HFA (90 MCG/PUFF) 8 GM MDI IH PRN (17:45)
[2020-05-21] MEDS: LOSARTAN POTASSIUM 50 MG TABLET PO SCH (21:17)
[2020-05-21] MEDS: TOPIRAMATE 25 MG TABLET PO SCH (21:17)
[2020-05-22] MEDS: FUROSEMIDE INJ/PF 40 MG/4 ML SDV IV SCH ×4 (05:11→23:36)
[2020-05-22 06:51] LABS: ABSOLUTE RETICS # 0.141 10^6/uL (0.028-0.122); HEMATOCRIT 31.5 % (36.0-47.0); HEMOGLOBIN 9.3 g/dL (12.0-15.5); MEAN CORPUSCULAR HEMOGLOBIN 18.7 pg (27.0-33.4); MEAN CORPUSCULAR HGB CONC 29.7 g/dL (32.0-36.0); MEAN CORPUSCULAR VOLUME 63 fl (80-97); PLATELET COUNT 389 10^3/uL (150-450); RED CELL DISTRIBUTION WIDTH 21.3 % (11.5-14.0); RETICULOCYTE COUNT (AUTO) 2.82 % (0.66-2.85)
[2020-05-22 07:07] LABS: ANION GAP 7 (5-19); BLOOD UREA NITROGEN 10 mg/dL (7-20); CALCIUM 8.9 mg/dL (8.4-10.2); CARBON DIOXIDE 32 mmol/L (22-30); CHLORIDE 99 mmol/L (98-107); CHOLESTEROL 151.43 mg/dL (0-200); GLUCOSE 105 mg/dL (75-110); IRON(TIBC) 28.8 ug/dL (37-170); POTASSIUM 4.3 mmol/L (3.6-5.0); TRIGLYCERIDES 89 mg/dL (<150)
[2020-05-22 07:19] LABS: DIRECT LDL 82 mg/dL (<100)
[2020-05-22 07:33] LABS: ABSOLUTE MONOCYTES # (MANUAL) 0.7 10^3/uL (0.1-1.4); BASOPHILS % (MANUAL) 0 % (0-2); EOSINOPHILS % (MANUAL) 1 % (0-6); LYMPHOCYTES % (MANUAL) 20 % (13-45); MONOCYTES % (MANUAL) 7 % (3-13); SEGMENTED NEUTROPHILS % (MAN) 72 % (42-78); TOTAL CELLS COUNTED 100
[2020-05-22 07:35] LABS: ANISOCYTOSIS 3+; HYPOCHROMASIA 3+; OVALOCYTES 1+; PLATELET COMMENT ADEQUATE; POLYCHROMASIA SLIGHT
[2020-05-22 07:41] LABS: FERRITIN 8.37 ng/mL (6.2-137.0)
[2020-05-22 08:11] LABS: FOLATE 9.69 ng/mL (>2.76)
[2020-05-22] MEDS: METOPROLOL SUCCINATE 50 MG TAB.SR.24H PO SCH (09:48)
[2020-05-22] MEDS: FERROUS SULFATE 325 MG TABLET PO SCH (09:48)
[2020-05-22] MEDS: LOSARTAN POTASSIUM 50 MG TABLET PO SCH ×2 (09:48→21:09)
[2020-05-22] MEDS: ASPIRIN 81 MG TABLET, ENT COATED PO SCH (09:48)
[2020-05-22] MEDS: TOPIRAMATE 25 MG TABLET PO SCH ×2 (09:48→21:09)
[2020-05-22] MEDS: LORATADINE 10 MG TABLET PO SCH (09:48)
[2020-05-22] MEDS: PAROXETINE HCL 20 MG TABLET PO SCH (09:48)
[2020-05-22] MEDS: ENOXAPARIN SODIUM INJ 40 MG/0.4 ML DISP.SYRIN SUBCUT SCH (09:49)
[2020-05-22] MEDS: ACETAMINOPHEN 325 MG TABLET PO PRN ×2 (10:43→21:09)
--- NOTE | 2020-05-22 15:01 | EKG REPORT ---
SEVERITY:- ABNORMAL ECG - SINUS RHYTHM KEVIN, CONSIDER BIATRIAL ABNORMALITIES PROBABLE LEFT VENTRICULAR HYPERTROPHY PROLONGED QT INTERVAL : Confirmed by: Wes Riley 22-May-2020 15:01:01
--- NOTE | 2020-05-22 18:23 | PDOC PROGRESS REPORT ---
Subjective Subjective:: Per Previous Physician: "AXEL WELLS is a 35 year old female The patient is suffering from nonischemic cardiomyopathy. Previously she had combine systolic and diastolic dysfunction with depressed left ventricular ejec tion fraction. Echocardiogram last month revealed left ventricular ejection fraction 45 to 50% with minimal left ventricular hypokinesis. Grade 3 diastolic dysfunction. This was an improvement. No significant heart valve abnormalities. The patient had several admissions for heart failure [facility]. Last hospital admission was in April this year. For the last 2 to 3 days the patient was developing increasing shortness of breath, increasing swelling of both legs and some generalized edema. Her exercise tolerance was declining. In the emergency department she was given intravenous furosemide, started feeling slightly better. Her oxygen saturation was 88% on room air, on 2 L of oxygen is 98%. On nasal oxygen she does not appear to be in any distress. She did not have any chest pain." 05/22/2020 Patient still having significant edema in her bilateral lower extremities and t his is causing her quite a bit of discomfort. I discussed trying compression stockings with the patient noting that this could increase her discomfort temporarily but it would certainly push her edema back in her circulatory system and help her to urinate out with the aid of Lasix. Patient is agreeable to attempting this. Will need nursing to get her appropriately sized compression stockings. Patient states she has a large amount of urine output regularly throughout the day. BNP is lower today. She has no new complaints otherwise. Reason For Visit: HEART FAILURE Physical Exam Vital Signs: Temp Pulse Resp BP Pulse Ox 98.2 F 81 19 121/80 95 05/22/20 17:54 05/22/20 17:54 05/22/20 17:54 05/22/20 17:54 05/22/20 17:54 Intake & Output 05/21/20 05/22/20 05/23/20 06:59 06:59 06:59 Intake Total 326 Output Total 1500 1999 Balance -1500 -1999 326 Weight 147 kg 143.9 kg Exam: General appearance: PRESENT: no acute distress, well-developed, well-nourished, morbidly obese with BMI 49.7 Head exam: PRESENT: atraumatic, normocephalic Eye exam: PRESENT: conjunctiva pink. ABSENT: scleral icterus Mouth exam: PRESENT: moist Respiratory exam: PRESENT: clear to auscultation [place]. ABSENT: rales, rhonchi, wheezes Cardiovascular exam: PRESENT: RRR. ABSENT: diastolic murmur, rubs, systolic murmur; +3 BLE edema GI/Abdominal exam: PRESENT: normal bowel sounds, soft. ABSENT: distended, guarding, mass, organolmegaly, rebound, tenderness Neurological exam: PRESENT: alert, awake, oriented to person, oriented to place, oriented to time, oriented to situation Psychiatric exam: PRESENT: appropriate affect, normal mood Skin exam: PRESENT: dry, intact, warm Results Laboratory Results: 05/22/20 06:22 05/22/20 06:22 05/22/20 05/22/20 05/22/20 06:22 06:22 06:22 WBC 10.0 RBC 5.00 Hgb 9.3 L Hct 31.5 L MCV 63 L MCH 18.7 L MCHC 29.7 L RDW 21.3 H Plt Count 389 Seg Neutrophils % Not Reportable Retic Count (auto) 2.82 Sodium 138.2 Potassium 4.3 Chloride 99 Carbon Dioxide 32 H Anion Gap 7 BUN 10 Creatinine 0.88 Est GFR ( Amer) > 60 Glucose 105 Calcium 8.9 Magnesium 1.6 Iron 28.8 L TIBC 459 H % Saturation 6 Ferritin 8.37 Triglycerides 89 Cholesterol 151.43 LDL Cholesterol Direct 82 VLDL Cholesterol 18.0 HDL Cholesterol 46 Vitamin B12 809.0 Folate 9.69 TSH 0.81 05/22/20 10:36 WBC RBC Hgb Hct MCV MCH MCHC RDW Plt Count Seg Neutrophils % Retic Count (auto) Sodium Potassium Chloride Carbon Dioxide Anion Gap BUN Creatinine Est GFR ( Amer) Glucose Calcium Magnesium 1.7 Iron TIBC % Saturation Ferritin Triglycerides Cholesterol LDL Cholesterol Direct VLDL Cholesterol HDL Cholesterol Vitamin B12 Folate TSH 05/20/20 05/21/20 05/21/20 20:10 01:40 07:24 Troponin I 0.022 0.019 0.013 NT-Pro-B Natriuret Pep 1020 H 924 H 05/21/20 05/22/20 13:17 06:22 Troponin I < 0.012 NT-Pro-B Natriuret Pep 645 H Impressions: Chest X-Ray 05/20/20 19:54 IMPRESSION: 1. Cardiomegaly with mild pulmonary vascular congestion. Venous Doppler Study 05/20/20 19:54 IMPRESSION: No DVT in the right lower extremity. Assessment and Plan - Diagnosis (1) Acute exacerbation of CHF (congestive heart failure) Qualifiers: Heart failure type: unspecified Qualified Code(s): I50.9 - Heart failure, unspecified Is this a current diagnosis for this admission?: Yes (2) CHF, acute on chronic Qualifiers: Heart failure type: combined systolic and diastolic Qualified Code(s): I50.43 - Acute on chronic combined systolic (congestive) and diastolic (congestive) heart failure Is this a current diagnosis for this admission?: Yes (3) DM type 2 (diabetes mellitus, type 2) Qualifiers: Diabetes mellitus residential insulin use: without director long term care use Diabetes mellitus complication status: without complication Qualified Code(s): E11.9 - Type 2 diabetes mellitus without complications Is this a current diagnosis for this admission?: Yes (4) Edema of both lower extremities Is this a current diagnosis for this admission?: Yes (5) Hypertensive emergency Is this a current diagnosis for this admission?: Yes (6) HTN (hypertension) Qualifiers: Hypertension type: unspecified Qualified Code(s): I10 - Essential (primary) hypertension Is this a current diagnosis for this admission?: Yes (7) Suspected COVID-19 virus infection Is this a current diagnosis for this admission?: Yes - Plan Summary Summary: CHF, acute on chronic Acute on chronic diastolic heart failure IV Lasix Recent echo reviewed Needs follow-up with cardiology after discharge Hypertensive emergency Per Previous Physician: "She received intravenous labetalol in the emergency department. Now her blood pressure is better. She may need additional blood pressure medication if metoprolol and losartan will not control her blood pressure." Antihypertensives continued, blood pressure better controlled Edema of both lower extremities Per Previous Physician: "Secondary to congestive heart failure. Right lower extremity venous Doppler was negative for DVT." Person under investigation for COVID-19 Per Previous Physician: "She has bilateral pulmonary infiltrates most likely related to heart failure. She is afebrile. She may have asymptomatic coronavirus infection. COVID-19 test pending." Anemia Per Previous Physician: "She has chronic anemia, hemoglobin was 8.1 last month. She was on oral iron supplement. I will check anemia studies. If indicated she may benefit from intravenous iron." DM type 2 (diabetes mellitus, type 2) Per Previous Physician: "She has diet-controlled type 2 diabetes. Diabetic diet. Monitor blood glucose. Correction dose insulin if needed. Hemoglobin A1c." Accu-Cheks and sliding scale insulin Morbid obesity Per Previous Physician: "Her BMI is 53.6. Weight loss would be helpful for her." - Time Time Spent with patient: 15-24 minutes Medications reviewed and adjusted accordingly: Yes Anticipated Discharge Disposition: Home, Self Care Anticipated Discharge Timeframe: within 48 hours - Inpatient Certification Based on my medical assessment, after consideration of the patient's comorbidities, presenting symptoms, or acuity I expect that the services needed warrant INPATIENT care.: Yes I certify that my determination is in accordance with my understanding of Medicare's requirements for reasonable and necessary INPATIENT services [42 CFR 412.3e].: Yes Medical Necessity: Significant Comorbidiites Make Outpatient Treatment Too Risky, Need Close Monitoring Due to Risk of Patient Decompensation, Risk of Complication if Not Cared For in Hospital, Risk of Diagnosis Which Will Require Inpatient Eval/Care/Monitoring
[2020-05-23 05:32] LABS: ABSOLUTE BASOPHILS # (AUTO) 0.1 10^3/uL (0.0-0.2); ABSOLUTE EOSINOPHILS # (AUTO) 0.4 10^3/uL (0.0-0.6); ABSOLUTE MONOCYTES (AUTO) 0.9 10^3/uL (0.1-1.4); BASOPHILS % (AUTO) 0.9 % (0-2); EOSINOPHILS % (AUTO) 4.3 % (0-6); HEMATOCRIT 31.1 % (36.0-47.0); HEMOGLOBIN 9.1 g/dL (12.0-15.5); LYMPHOCYTES % (AUTO) 24.1 % (13-45); MEAN CORPUSCULAR HGB CONC 29.3 g/dL (32.0-36.0); MEAN CORPUSCULAR VOLUME 65 fl (80-97); MONOCYTES % (AUTO) 10.9 % (3-13); PLATELET COUNT 348 10^3/uL (150-450); RED BLOOD COUNT 4.79 10^6/uL (3.72-5.28); RED CELL DISTRIBUTION WIDTH 21.3 % (11.5-14.0); SEGMENTED NEUTROPHILS % (AUTO) 59.8 % (42-78); TOTAL CELLS COUNTED % (AUTO) 100 %; WHITE BLOOD COUNT 8.4 10^3/uL (4.0-10.5)
[2020-05-23 05:50] LABS: BLOOD UREA NITROGEN 11 mg/dL (7-20); CALCIUM 8.7 mg/dL (8.4-10.2); GLUCOSE 82 mg/dL (75-110); POTASSIUM 3.8 mmol/L (3.6-5.0)
[2020-05-23 05:55] LABS: ANION GAP 6 (5-19); CARBON DIOXIDE 32 mmol/L (22-30); CHLORIDE 100 mmol/L (98-107)
[2020-05-23] MEDS: FUROSEMIDE INJ/PF 40 MG/4 ML SDV IV SCH ×3 (06:15→16:59)
[2020-05-23 06:32] LABS: ANISOCYTOSIS 3+; HYPOCHROMASIA 3+
[2020-05-23 06:33] LABS: OVALOCYTES 1+; PLATELET COMMENT ADEQUATE; POLYCHROMASIA SLIGHT; TARGET CELLS 1+
[2020-05-23 06:34] LABS: POIKILOCYTOSIS 1+
[2020-05-23] MEDS: FERROUS SULFATE 325 MG TABLET PO SCH (09:31)
[2020-05-23] MEDS: ENOXAPARIN SODIUM INJ 40 MG/0.4 ML DISP.SYRIN SUBCUT SCH (09:31)
[2020-05-23] MEDS: TOPIRAMATE 25 MG TABLET PO SCH ×2 (09:31→22:51)
[2020-05-23] MEDS: PAROXETINE HCL 20 MG TABLET PO SCH (09:32)
[2020-05-23] MEDS: LOSARTAN POTASSIUM 50 MG TABLET PO SCH ×2 (09:32→22:51)
[2020-05-23] MEDS: METOPROLOL SUCCINATE 50 MG TAB.SR.24H PO SCH (09:32)
[2020-05-23] MEDS: ASPIRIN 81 MG TABLET, ENT COATED PO SCH (09:32)
[2020-05-23] MEDS: LORATADINE 10 MG TABLET PO SCH (09:32)
--- NOTE | 2020-05-23 17:06 | PDOC PROGRESS REPORT ---
Subjective Subjective:: Per Previous Physician: "AXEL WELLS is a 35 year old female The patient is suffering from nonischemic cardiomyopathy. Previously she had combine systolic and diastolic dysfunction with depressed left ventricular ejec tion fraction. Echocardiogram last month revealed left ventricular ejection fraction 45 to 50% with minimal left ventricular hypokinesis. Grade 3 diastolic dysfunction. This was an improvement. No significant heart valve abnormalities. The patient had several admissions for heart failure [facility]. Last hospital admission was in April this year. For the last 2 to 3 days the patient was developing increasing shortness of breath, increasing swelling of both legs and some generalized edema. Her exercise tolerance was declining. In the emergency department she was given intravenous furosemide, started feeling slightly better. Her oxygen saturation was 88% on room air, on 2 L of oxygen is 98%. On nasal oxygen she does not appear to be in any distress. She did not have any chest pain." 05/22/2020 Patient still having significant edema in her bilateral lower extremities and t his is causing her quite a bit of discomfort. I discussed trying compression stockings with the patient noting that this could increase her discomfort temporarily but it would certainly push her edema back in her circulatory system and help her to urinate out with the aid of Lasix. Patient is agreeable to attempting this. Will need nursing to get her appropriately sized compression stockings. Patient states she has a large amount of urine output regularly throughout the day. BNP is lower today. She has no new complaints otherwise. 05/23/2020 Patient still having significant amount of edema in her lower extremities. She does have a great deal of urine output but I believe she is drinking a substantial water as well as she states she feels quite thirsty at times. Yesterday she had approximately 2 L of urine out. I told her to take small sips of water rather than drinking large amounts even if she feels thirsty. We will continue Lasix at its current dose. I noticed on her UA on admission she had an excessive amount of protein and I will get a repeat UA with urine protein cre atinine ratio to see if she has nephrotic syndrome which would be more consistent with her physical exam findings of edema without any significant pulmonary edema or severe heart failure seen on previous echo. If she does have significant proteinuria on these tests, she may benefit from a kidney biopsy as she could have an inflammatory form of nephrotic syndrome that would be amenable to steroid treatment. We may need nephrology input as well. Of note, her serum albumin was low on admission as well. I will switch her to Bumex as this has some benefit over Lasix in the setting of hypoalbuminemia. Reason For Visit: HEART FAILURE Physical Exam Vital Signs: Temp Pulse Resp BP Pulse Ox 98.9 F 78 17 123/81 97 05/23/20 16:00 05/23/20 16:00 05/23/20 16:00 05/23/20 16:00 05/23/20 16:00 Intake & Output 05/22/20 05/23/20 05/24/20 06:59 06:59 06:59 Intake Total 586 396 Output Total 1999 -1999 586 396 Weight 143.9 kg 136.5 kg Results Laboratory Results: 05/23/20 04:50 05/23/20 04:50 05/23/20 05/23/20 04:50 04:50 WBC 8.4 RBC 4.79 Hgb 9.1 L Hct 31.1 L MCV 65 L MCH 19.0 L MCHC 29.3 L RDW 21.3 H Plt Count 348 Seg Neutrophils % 59.8 Sodium 137.8 Potassium 3.8 Chloride 100 Carbon Dioxide 32 H Anion Gap 6 BUN 11 Creatinine 0.95 Est GFR ( Amer) > 60 Glucose 82 Calcium 8.7 05/20/20 05/21/20 05/21/20 20:10 01:40 07:24 Troponin I 0.022 0.019 0.013 NT-Pro-B Natriuret Pep 1020 H 924 H 05/21/20 05/22/20 13:17 06:22 Troponin I < 0.012 NT-Pro-B Natriuret Pep 645 H Impressions: Chest X-Ray 05/20/20 19:54 IMPRESSION: 1. Cardiomegaly with mild pulmonary vascular congestion. Venous Doppler Study 05/20/20 19:54 IMPRESSION: No DVT in the right lower extremity. Assessment and Plan - Diagnosis (1) Acute exacerbation of CHF (congestive heart failure) Qualifiers: Heart failure type: unspecified Qualified Code(s): I50.9 - Heart failure, unspecified Is this a current diagnosis for this admission?: Yes (2) CHF, acute on chronic Qualifiers: Heart failure type: combined systolic and diastolic Qualified Code(s): I50.43 - Acute on chronic combined systolic (congestive) and diastolic (congestive) heart failure Is this a current diagnosis for this admission?: Yes (3) DM type 2 (diabetes mellitus, type 2) Qualifiers: Diabetes mellitus skilled nursing insulin use: without bed bug exterminator use Diabetes mellitus complication status: without complication Qualified Code(s): E11.9 - Type 2 diabetes mellitus without complications Is this a current diagnosis for this admission?: Yes (4) Edema of both lower extremities Is this a current diagnosis for this admission?: Yes (5) Hypertensive emergency Is this a current diagnosis for this admission?: Yes (6) HTN (hypertension) Qualifiers: Hypertension type: unspecified Qualified Code(s): I10 - Essential (primary) hypertension Is this a current diagnosis for this admission?: Yes (7) Suspected COVID-19 virus infection Is this a current diagnosis for this admission?: Yes - Plan Summary Summary: CHF, acute on chronic Acute on chronic diastolic heart failure IV Lasix changed to IV Bumex for hypoalbuminemia Recent echo reviewed Needs follow-up with cardiology after discharge Proteinuria UA on admission showed urine protein greater than 500, repeat UA Urine protein creatinine ratio Consider nephrology consult Hypertensive emergency Per Previous Physician: "She received intravenous labetalol in the emergency department. Now her blood pressure is better. She may need additional blood pressure medication if metoprolol and losartan will not control her blood pressure." Antihypertensives continued, blood pressure better controlled Edema of both lower extremities Per Previous Physician: "Secondary to congestive heart failure. Right lower extremity venous Doppler was negative for DVT." Person under investigation for COVID-19 Per Previous Physician: "She has bilateral pulmonary infiltrates most likely related to heart failure. She is afebrile. She may have asymptomatic coronavirus infection. COVID-19 test pending." Negative Anemia Per Previous Physician: "She has chronic anemia, hemoglobin was 8.1 last month. She was on oral iron supplement. I will check anemia studies. If indicated she may benefit from intravenous iron." DM type 2 (diabetes mellitus, type 2) Per Previous Physician: "She has diet-controlled type 2 diabetes. Diabetic diet. Monitor blood glucose. Correction dose insulin if needed. Hemoglobin A1c." Accu-Cheks and sliding scale insulin Morbid obesity Per Previous Physician: "Her BMI is 53.6. Weight loss would be helpful for her." - Time Time Spent with patient: 25-34 minutes Medications reviewed and adjusted accordingly: Yes Anticipated Discharge Disposition: Home, Self Care Anticipated Discharge Timeframe: within 48 hours - Inpatient Certification Based on my medical assessment, after consideration of the patient's comorbidities, presenting symptoms, or acuity I expect that the services needed warrant INPATIENT care.: Yes I certify that my determination is in accordance with my understanding of Medicare's requirements for reasonable and necessary INPATIENT services [42 CFR 412.3e].: Yes Medical Necessity: Significant Comorbidiites Make Outpatient Treatment Too Risky, Need Close Monitoring Due to Risk of Patient Decompensation, Risk of Complication if Not Cared For in Hospital, Risk of Diagnosis Which Will Require Inpatient Eval/Care/Monitoring
[2020-05-23] MEDS: BUMETANIDE INJ/PF 1 MG/4 ML SDV IV SCH (22:51)
[2020-05-24 01:21] LABS: APPEARANCE,URINE CLEAR; BILIRUBIN,URINE NEGATIVE (NEGATIVE); COLOR,URINE YELLOW; GLUCOSE, URINE NEGATIVE (NEGATIVE); KETONES,URINE NEGATIVE (NEGATIVE); PROTEIN,URINE NEGATIVE (NEGATIVE); URINE SPECIFIC GRAVITY 1.009; UROBILINOGEN,URINE NEGATIVE mg/dL (<2.0)
[2020-05-24 01:39] LABS: UR PRO/CREAT RATIO RESULT 0.2 mg/mg (0.0-0.2); URINE CREATININE 77.8 mg/dL (16-327); URINE PROTEIN 14.9 mg/dL (<12)
[2020-05-24] MEDS: BUMETANIDE INJ/PF 1 MG/4 ML SDV IV SCH ×2 (09:13→21:43)
[2020-05-24] MEDS: METOPROLOL SUCCINATE 50 MG TAB.SR.24H PO SCH (09:14)
[2020-05-24] MEDS: PAROXETINE HCL 20 MG TABLET PO SCH (09:14)
[2020-05-24] MEDS: LORATADINE 10 MG TABLET PO SCH (09:14)
[2020-05-24] MEDS: ENOXAPARIN SODIUM INJ 40 MG/0.4 ML DISP.SYRIN SUBCUT SCH (09:14)
[2020-05-24] MEDS: ASPIRIN 81 MG TABLET, ENT COATED PO SCH (09:14)
[2020-05-24] MEDS: FERROUS SULFATE 325 MG TABLET PO SCH (09:14)
[2020-05-24] MEDS: TOPIRAMATE 25 MG TABLET PO SCH ×2 (09:14→21:44)
[2020-05-24] MEDS: LOSARTAN POTASSIUM 50 MG TABLET PO SCH ×2 (09:14→21:43)
--- NOTE | 2020-05-24 18:25 | PDOC PROGRESS REPORT ---
Subjective Subjective:: Per Previous Physician: "AXEL WELLS is a 35 year old female The patient is suffering from nonischemic cardiomyopathy. Previously she had combine systolic and diastolic dysfunction with depressed left ventricular ejec tion fraction. Echocardiogram last month revealed left ventricular ejection fraction 45 to 50% with minimal left ventricular hypokinesis. Grade 3 diastolic dysfunction. This was an improvement. No significant heart valve abnormalities. The patient had several admissions for heart failure [facility]. Last hospital admission was in April this year. For the last 2 to 3 days the patient was developing increasing shortness of breath, increasing swelling of both legs and some generalized edema. Her exercise tolerance was declining. In the emergency department she was given intravenous furosemide, started feeling slightly better. Her oxygen saturation was 88% on room air, on 2 L of oxygen is 98%. On nasal oxygen she does not appear to be in any distress. She did not have any chest pain." 05/22/2020 Patient still having significant edema in her bilateral lower extremities and t his is causing her quite a bit of discomfort. I discussed trying compression stockings with the patient noting that this could increase her discomfort temporarily but it would certainly push her edema back in her circulatory system and help her to urinate out with the aid of Lasix. Patient is agreeable to attempting this. Will need nursing to get her appropriately sized compression stockings. Patient states she has a large amount of urine output regularly throughout the day. BNP is lower today. She has no new complaints otherwise. 05/23/2020 Patient still having significant amount of edema in her lower extremities. She does have a great deal of urine output but I believe she is drinking a substantial water as well as she states she feels quite thirsty at times. Yesterday she had approximately 2 L of urine out. I told her to take small sips of water rather than drinking large amounts even if she feels thirsty. We will continue Lasix at its current dose. I noticed on her UA on admission she had an excessive amount of protein and I will get a repeat UA with urine protein cre atinine ratio to see if she has nephrotic syndrome which would be more consistent with her physical exam findings of edema without any significant pulmonary edema or severe heart failure seen on previous echo. If she does have significant proteinuria on these tests, she may benefit from a kidney biopsy as she could have an inflammatory form of nephrotic syndrome that would be amenable to steroid treatment. We may need nephrology input as well. Of note, her serum albumin was low on admission as well. I will switch her to Bumex as this has some benefit over Lasix in the setting of hypoalbuminemia. 05/24/2020 Edema and patient's legs still rather prominent. Urine protein creatinine ratio is normal and she has significantly less protein in her urine upon recheck of UA. Urine culture was sent as a reflex although there is no evidence of infection in her UA. Cardiology consulted and will see the patient in the next 24 hours. We will start SCD to help recirculate fluid pulling in her legs. Reason For Visit: HEART FAILURE Physical Exam Vital Signs: Temp Pulse Resp BP Pulse Ox 98.6 F 75 17 118/84 100 05/24/20 16:00 05/24/20 16:00 05/24/20 16:00 05/24/20 16:00 05/24/20 16:00 Intake & Output 05/23/20 05/24/20 05/25/20 06:59 06:59 06:59 Intake Total 586 1056 420 Output Total 1300 600 Balance 586 -244 -180 Weight 136.5 kg 136.5 kg Exam: General appearance: PRESENT: no acute distress, well-developed, well-nourished, morbidly obese with BMI 49.7, states her legs are still rather edematous Head exam: PRESENT: atraumatic, normocephalic Eye exam: PRESENT: conjunctiva pink. ABSENT: scleral icterus Mouth exam: PRESENT: moist Respiratory exam: PRESENT: clear to auscultation [place]. ABSENT: rales, rhonchi, wheezes Cardiovascular exam: PRESENT: RRR. ABSENT: diastolic murmur, rubs, systolic murmur; +3 BLE edema GI/Abdominal exam: PRESENT: normal bowel sounds, soft. ABSENT: distended, guarding, mass, organolmegaly, rebound, tenderness Neurological exam: PRESENT: alert, awake, oriented to person, oriented to place, oriented to time, oriented to situation Psychiatric exam: PRESENT: appropriate affect, normal mood Skin exam: PRESENT: dry, intact, warm Results Laboratory Results: 05/23/20 04:50 05/23/20 04:50 05/24/20 00:50 Urine Color YELLOW Urine Appearance CLEAR Urine pH 8.0 Ur Specific [place] 1.009 Urine Protein NEGATIVE Urine Glucose (UA) NEGATIVE Urine Ketones NEGATIVE Urine Blood MODERATE H Urine RBC (Auto) 0 05/20/20 05/21/20 05/21/20 20:10 01:40 07:24 Troponin I 0.022 0.019 0.013 NT-Pro-B Natriuret Pep 1020 H 924 H 05/21/20 05/22/20 13:17 06:22 Troponin I < 0.012 NT-Pro-B Natriuret Pep 645 H Impressions: Chest X-Ray 05/20/20 19:54 IMPRESSION: 1. Cardiomegaly with mild pulmonary vascular congestion. Venous Doppler Study 05/20/20 19:54 IMPRESSION: No DVT in the right lower extremity. Assessment and Plan - Diagnosis (1) Acute exacerbation of CHF (congestive heart failure) Qualifiers: Heart failure type: unspecified Qualified Code(s): I50.9 - Heart failure, unspecified Is this a current diagnosis for this admission?: Yes (2) CHF, acute on chronic Qualifiers: Heart failure type: combined systolic and diastolic Qualified Code(s): I50.43 - Acute on chronic combined systolic (congestive) and diastolic (congestive) heart failure Is this a current diagnosis for this admission?: Yes (3) DM type 2 (diabetes mellitus, type 2) Qualifiers: Diabetes mellitus senior living insulin use: without rn long term care use Diabetes mellitus complication status: without complication Qualified Code(s): E11.9 - Type 2 diabetes mellitus without complications Is this a current diagnosis for this admission?: Yes (4) Edema of both lower extremities Is this a current diagnosis for this admission?: Yes (5) Hypertensive emergency Is this a current diagnosis for this admission?: Yes (6) HTN (hypertension) Qualifiers: Hypertension type: unspecified Qualified Code(s): I10 - Essential (primary) hypertension Is this a current diagnosis for this admission?: Yes (7) Suspected COVID-19 virus infection Is this a current diagnosis for this admission?: Yes - Plan Summary Summary: Diastolic CHF, acute on chronic Acute on chronic diastolic heart failure IV Lasix changed to IV Bumex for hypoalbuminemia Recent echo reviewed Needs follow-up with cardiology after discharge Cardiology consulted SCD Proteinuriaresolved UA on admission showed urine protein greater than 500, repeat UA showed no significant proteinuria Urine protein creatinine ratio normal Consider nephrology consult Hypertensive emergency Per Previous Physician: "She received intravenous labetalol in the emergency department. Now her blood pressure is better. She may need additional blood pressure medication if metoprolol and losartan will not control her blood pressure." Antihypertensives continued, blood pressure better controlled Edema of both lower extremities Per Previous Physician: "Secondary to congestive heart failure. Right lower extremity venous Doppler was negative for DVT." Person under investigation for COVID-19 Per Previous Physician: "She has bilateral pulmonary infiltrates most likely related to heart failure. She is afebrile. She may have asymptomatic coronavirus infection. COVID-19 test pending." Negative Anemia Per Previous Physician: "She has chronic anemia, hemoglobin was 8.1 last month. She was on oral iron supplement. I will check anemia studies. If indicated she may benefit from intravenous iron." DM type 2 (diabetes mellitus, type 2) Per Previous Physician: "She has diet-controlled type 2 diabetes. Diabetic diet. Monitor blood glucose. Correction dose insulin if needed. Hemoglobin A1c." Accu-Cheks and sliding scale insulin Morbid obesity Per Previous Physician: "Her BMI is 53.6. Weight loss would be helpful for her." - Time Time Spent with patient: 25-34 minutes Medications reviewed and adjusted accordingly: Yes Anticipated Discharge Disposition: Home, Self Care Anticipated Discharge Timeframe: within 48 hours - Inpatient Certification Based on my medical assessment, after consideration of the patient's comorbidities, presenting symptoms, or acuity I expect that the services needed warrant INPATIENT care.: Yes I certify that my determination is in accordance with my understanding of Medicare's requirements for reasonable and necessary INPATIENT services [42 CFR 412.3e].: Yes Medical Necessity: Significant Comorbidiites Make Outpatient Treatment Too Risky, Need Close Monitoring Due to Risk of Patient Decompensation, Risk of Complication if Not Cared For in Hospital, Risk of Diagnosis Which Will Require Inpatient Eval/Care/Monitoring
[2020-05-25 05:55] LABS: ANION GAP 8 (5-19); BLOOD UREA NITROGEN 14 mg/dL (7-20); CALCIUM 9.1 mg/dL (8.4-10.2); CARBON DIOXIDE 30 mmol/L (22-30); CHLORIDE 100 mmol/L (98-107); GLUCOSE 88 mg/dL (75-110)
[2020-05-25 08:19] LABS: HEMATOCRIT 35.2 % (36.0-47.0); HEMOGLOBIN 10.1 g/dL (12.0-15.5); MEAN CORPUSCULAR HEMOGLOBIN 18.6 pg (27.0-33.4); MEAN CORPUSCULAR HGB CONC 28.8 g/dL (32.0-36.0); MEAN CORPUSCULAR VOLUME 65 fl (80-97); PLATELET COUNT 348 10^3/uL (150-450); RED BLOOD COUNT 5.46 10^6/uL (3.72-5.28); RED CELL DISTRIBUTION WIDTH 21.4 % (11.5-14.0); WHITE BLOOD COUNT 8.9 10^3/uL (4.0-10.5)
[2020-05-25 08:39] LABS: ABSOLUTE LYMPHOCYTES# (MANUAL) 1.6 10^3/uL (0.5-4.7); ABSOLUTE MONOCYTES # (MANUAL) 0.6 10^3/uL (0.1-1.4); BASOPHILS % (MANUAL) 1 % (0-2); EOSINOPHILS % (MANUAL) 2 % (0-6); LYMPHOCYTES % (MANUAL) 18 % (13-45); MONOCYTES % (MANUAL) 7 % (3-13); SEGMENTED NEUTROPHILS % (MAN) 72 % (42-78); TOTAL CELLS COUNTED 100
[2020-05-25 08:40] LABS: ANISOCYTOSIS 3+; HYPOCHROMASIA 3+
[2020-05-25 08:41] LABS: OVALOCYTES 1+; POIKILOCYTOSIS 2+; TARGET CELLS 2+
[2020-05-25 08:42] LABS: POLYCHROMASIA 1+
[2020-05-25 08:44] LABS: PLATELET COMMENT ADEQUATE
[2020-05-25] MEDS: ASPIRIN 81 MG TABLET, ENT COATED PO SCH (09:23)
[2020-05-25] MEDS: PAROXETINE HCL 20 MG TABLET PO SCH (09:23)
[2020-05-25] MEDS: LOSARTAN POTASSIUM 50 MG TABLET PO SCH ×2 (09:23→22:13)
[2020-05-25] MEDS: TOPIRAMATE 25 MG TABLET PO SCH ×2 (09:24→22:13)
[2020-05-25] MEDS: LORATADINE 10 MG TABLET PO SCH (09:24)
[2020-05-25] MEDS: METOPROLOL SUCCINATE 50 MG TAB.SR.24H PO SCH (09:24)
[2020-05-25] MEDS: FERROUS SULFATE 325 MG TABLET PO SCH (09:24)
[2020-05-25] MEDS: ENOXAPARIN SODIUM INJ 40 MG/0.4 ML DISP.SYRIN SUBCUT SCH (09:25)
[2020-05-25] MEDS: BUMETANIDE INJ/PF 1 MG/4 ML SDV IV SCH ×2 (09:25→22:13)
--- NOTE | 2020-05-25 15:45 | PDOC PROGRESS REPORT ---
Subjective Subjective:: Per Previous Physician: "AXEL WELLS is a 35 year old female The patient is suffering from nonischemic cardiomyopathy. Previously she had combine systolic and diastolic dysfunction with depressed left ventricular ejec tion fraction. Echocardiogram last month revealed left ventricular ejection fraction 45 to 50% with minimal left ventricular hypokinesis. Grade 3 diastolic dysfunction. This was an improvement. No significant heart valve abnormalities. The patient had several admissions for heart failure [facility]. Last hospital admission was in April this year. For the last 2 to 3 days the patient was developing increasing shortness of breath, increasing swelling of both legs and some generalized edema. Her exercise tolerance was declining. In the emergency department she was given intravenous furosemide, started feeling slightly better. Her oxygen saturation was 88% on room air, on 2 L of oxygen is 98%. On nasal oxygen she does not appear to be in any distress. She did not have any chest pain." 05/22/2020 Patient still having significant edema in her bilateral lower extremities and t his is causing her quite a bit of discomfort. I discussed trying compression stockings with the patient noting that this could increase her discomfort temporarily but it would certainly push her edema back in her circulatory system and help her to urinate out with the aid of Lasix. Patient is agreeable to attempting this. Will need nursing to get her appropriately sized compression stockings. Patient states she has a large amount of urine output regularly throughout the day. BNP is lower today. She has no new complaints otherwise. 05/23/2020 Patient still having significant amount of edema in her lower extremities. She does have a great deal of urine output but I believe she is drinking a substantial water as well as she states she feels quite thirsty at times. Yesterday she had approximately 2 L of urine out. I told her to take small sips of water rather than drinking large amounts even if she feels thirsty. We will continue Lasix at its current dose. I noticed on her UA on admission she had an excessive amount of protein and I will get a repeat UA with urine protein cre atinine ratio to see if she has nephrotic syndrome which would be more consistent with her physical exam findings of edema without any significant pulmonary edema or severe heart failure seen on previous echo. If she does have significant proteinuria on these tests, she may benefit from a kidney biopsy as she could have an inflammatory form of nephrotic syndrome that would be amenable to steroid treatment. We may need nephrology input as well. Of note, her serum albumin was low on admission as well. I will switch her to Bumex as this has some benefit over Lasix in the setting of hypoalbuminemia. 05/24/2020 Edema and patient's legs still rather prominent. Urine protein creatinine ratio is normal and she has significantly less protein in her urine upon recheck of UA. Urine culture was sent as a reflex although there is no evidence of infection in her UA. Cardiology consulted and will see the patient in the next 24 hours. We will start SCD to help recirculate fluid pulling in her legs. 05/25/2020 Patient's edema is very mildly improved today. I believe she would benefit from at least an additional day of IV Bumex. I put her on a fluid restriction has despite my extensive counseling yesterday on drinking too much fluids, she is drinking a far larger amount of fluids than she should be drinking for us to adequately diurese her. I discussed this with her again and she stated she would try to drink less water. I consulted cardiology and even though the patient told me she did not have a credit investigator on a previous encounter, she has now told Dr. Rico that she sees Dr. Thomas outpatient and I have consulted him instead. Unfortunately, is in the afternoon now and Dr. Thomas likely not be able to see her until tomorrow. She has no new complaints today. Reason For Visit: HEART FAILURE Physical Exam Vital Signs: Temp Pulse Resp BP Pulse Ox 98.4 F 73 17 113/66 97 05/25/20 13:05 05/25/20 13:05 05/25/20 13:05 05/25/20 13:05 05/25/20 13:05 Intake & Output 05/24/20 05/25/20 05/26/20 06:59 06:59 06:59 Intake Total 1056 1746 240 Output Total 1300 900 Balance -244 846 240 Weight 136.5 kg 136.5 kg Exam: General appearance: PRESENT: no acute distress, well-developed, well-nourished, morbidly obese with BMI 49.7, states she is still drinking a lot of water Head exam: PRESENT: atraumatic, normocephalic Eye exam: PRESENT: conjunctiva pink. ABSENT: scleral icterus Mouth exam: PRESENT: moist Respiratory exam: PRESENT: clear to auscultation [place]. ABSENT: rales, rhonchi, wheezes Cardiovascular exam: PRESENT: RRR. ABSENT: diastolic murmur, rubs, systolic murmur; + 3 BLE edema mildly less GI/Abdominal exam: PRESENT: normal bowel sounds, soft. ABSENT: distended, guarding, mass, organolmegaly, rebound, tenderness Neurological exam: PRESENT: alert, awake, oriented to person, oriented to place, oriented to time, oriented to situation Psychiatric exam: PRESENT: appropriate affect, normal mood Skin exam: PRESENT: dry, intact, warm Results Laboratory Results: 05/25/20 07:47 05/25/20 04:42 05/25/20 05/25/20 05/25/20 04:42 04:42 07:47 WBC Cancelled 8.9 RBC Cancelled 5.46 H Hgb Cancelled 10.1 L Hct Cancelled 35.2 L MCV Cancelled 65 L MCH Cancelled 18.6 L MCHC Cancelled 28.8 L RDW Cancelled 21.4 H Plt Count Cancelled 348 Seg Neutrophils % Cancelled Not Reportable Sodium 138.0 Potassium 4.0 Chloride 100 Carbon Dioxide 30 Anion Gap 8 BUN 14 Creatinine 1.12 Est GFR ( Amer) > 60 Glucose 88 Calcium 9.1 05/24/20 00:50 Clean Catch Midstream Urine Culture - Final Mixed Urogenital Katharine 05/20/20 05/21/20 05/21/20 20:10 01:40 07:24 Troponin I 0.022 0.019 0.013 NT-Pro-B Natriuret Pep 1020 H 924 H 05/21/20 05/22/20 13:17 06:22 Troponin I < 0.012 NT-Pro-B Natriuret Pep 645 H Impressions: Chest X-Ray 05/20/20 19:54 IMPRESSION: 1. Cardiomegaly with mild pulmonary vascular congestion. Venous Doppler Study 05/20/20 19:54 IMPRESSION: No DVT in the right lower extremity. Assessment and Plan - Diagnosis (1) Acute exacerbation of CHF (congestive heart failure) Qualifiers: Heart failure type: unspecified Qualified Code(s): I50.9 - Heart failure, unspecified Is this a current diagnosis for this admission?: Yes (2) CHF, acute on chronic Qualifiers: Heart failure type: combined systolic and diastolic Qualified Code(s): I50.43 - Acute on chronic combined systolic (congestive) and diastolic (congestive) heart failure Is this a current diagnosis for this admission?: Yes (3) DM type 2 (diabetes mellitus, type 2) Qualifiers: Diabetes mellitus usp insulin use: without usp use Diabetes mellitus complication status: without complication Qualified Code(s): E11.9 - Type 2 diabetes mellitus without complications Is this a current diagnosis for this admission?: Yes (4) Edema of both lower extremities Is this a current diagnosis for this admission?: Yes (5) Hypertensive emergency Is this a current diagnosis for this admission?: Yes (6) HTN (hypertension) Qualifiers: Hypertension type: unspecified Qualified Code(s): I10 - Essential (primary) hypertension Is this a current diagnosis for this admission?: Yes (7) Suspected COVID-19 virus infection Is this a current diagnosis for this admission?: Yes - Plan Summary Summary: Diastolic CHF, acute on chronic Acute on chronic diastolic heart failure IV Lasix changed to IV Bumex for hypoalbuminemia Recent echo reviewed Very slow diuresis given that patient is drinking excessive amounts of water despite being counseled on this multiple times during the admission Needs follow-up with cardiology after discharge Cardiology consulted: Follows with Dr. Thomas outpatient SCD Proteinuriaresolved UA on admission showed urine protein greater than 500, repeat UA showed no significant proteinuria Urine protein creatinine ratio normal Consider nephrology consult if this recurs Hypertensive emergency Per Previous Physician: "She received intravenous labetalol in the emergency department. Now her blood pressure is better. She may need additional blood pressure medication if metoprolol and losartan will not control her blood pressure." Antihypertensives continued, blood pressure better controlled Edema of both lower extremities Per Previous Physician: "Secondary to congestive heart failure. Right lower extremity venous Doppler was negative for DVT." Person under investigation for COVID-19 Per Previous Physician: "She has bilateral pulmonary infiltrates most likely related to heart failure. She is afebrile. She may have asymptomatic coronavirus infection. COVID-19 test pending." Negative Anemia Per Previous Physician: "She has chronic anemia, hemoglobin was 8.1 last month. She was on oral iron supplement. I will check anemia studies. If indicated she may benefit from intravenous iron." DM type 2 (diabetes mellitus, type 2) Per Previous Physician: "She has diet-controlled type 2 diabetes. Diabetic diet. Monitor blood glucose. Correction dose insulin if needed. Hemoglobin A1c." Accu-Cheks and sliding scale insulin Morbid obesity Per Previous Physician: "Her BMI is 53.6. Weight loss would be helpful for her." - Time Time Spent with patient: 15-24 minutes Medications reviewed and adjusted accordingly: Yes Anticipated Discharge Disposition: Home, Self Care Anticipated Discharge Timeframe: within 24 hours - Inpatient Certification Based on my medical assessment, after consideration of the patient's comorbidities, presenting symptoms, or acuity I expect that the services needed warrant INPATIENT care.: Yes I certify that my determination is in accordance with my understanding of Medicare's requirements for reasonable and necessary INPATIENT services [42 CFR 412.3e].: Yes Medical Necessity: Significant Comorbidiites Make Outpatient Treatment Too Risky, Need Close Monitoring Due to Risk of Patient Decompensation, Risk of Complication if Not Cared For in Hospital, Risk of Diagnosis Which Will Require Inpatient Eval/Care/Monitoring
[2020-05-26] MEDS: METOPROLOL SUCCINATE 50 MG TAB.SR.24H PO SCH (10:19)
[2020-05-26] MEDS: BUMETANIDE INJ/PF 1 MG/4 ML SDV IV SCH ×2 (10:19→22:12)
[2020-05-26] MEDS: FERROUS SULFATE 325 MG TABLET PO SCH (10:19)
[2020-05-26] MEDS: LOSARTAN POTASSIUM 50 MG TABLET PO SCH ×2 (10:20→22:11)
[2020-05-26] MEDS: ASPIRIN 81 MG TABLET, ENT COATED PO SCH (10:20)
[2020-05-26] MEDS: PAROXETINE HCL 20 MG TABLET PO SCH (10:20)
[2020-05-26] MEDS: ENOXAPARIN SODIUM INJ 40 MG/0.4 ML DISP.SYRIN SUBCUT SCH (10:20)
[2020-05-26] MEDS: LORATADINE 10 MG TABLET PO SCH (10:20)
[2020-05-26] MEDS: TOPIRAMATE 25 MG TABLET PO SCH ×2 (10:20→22:11)
--- NOTE | 2020-05-26 15:31 | PDOC CONSULTATION ---
Consultation Consult Date: 05/26/20 Attending physician:: MARK LANDIN Provider Consulted: ANANYA PLATT Consult reason:: CHF History of Present Illness Admission Date/PCP: 05/21/20 00:40 GEOVANI RAE Patient complains of: Dyspnea History of Present Illness: AXEL WELLS is a 35 year old female With the following medical problems 1. Obesity 2. Systemic hypertension 3. Chronic systolic and diastolic congestive heart failure 4. Iron deficiency anemia Patient is a 35-year-old lady who I have seen in the office for congestive heart failure on the 05/03/2020. There were issues of medication compliance. On that date with agreed to continue furosemide at 80 mg daily, losartan 50 mg daily as well as metoprolol succinate 20 mg daily as part of therapy for congestive heart failure. It appears the patient was admitted to the hospital again on account of acute effects from congestive heart failure. Patient reports no change in medications. She does not report noncompliance or any dietary indiscretion. Past Medical History Cardiac Medical History: Reports: Congestive Heart Failure, Hypertension Denies: Atrial Fibrillation, Coronary Artery Disease, DVT, Myocardial Infarction, Hyperlipidema, Pulmonary Embolism, Heart Murmur Pulmonary Medical History: Reports: Asthma Denies: Chronic Obstructive Pulmonary Disease (COPD), Respiratory Failure, Tuberculosis Neurological Medical History: Denies: Seizures Endocrine Medical History: Reports: Diabetes Mellitus Type 2 Denies: Diabetes Mellitus Type 1, Hyperthyroidism, Hypothyroidism Renal/ Medical History: Reports: None GI Medical History: Denies: Crohn's Disease, Gastroesophageal Reflux Disease, Ulcerative Colitis Musculoskeltal Medical History: Denies: Arthritis, Gout Skin Medical History: Denies: Eczema, Psoriasis Psychiatric Medical History: Reports: Depression - anxiety Hematology: Reports: Anemia Denies: Sickle Cell Disease, Bleeding Tendencies Past Surgical History Past Surgical History: Reports: Appendectomy Social History Lives with: Family Smoking Status: Never Smoker Electronic Cigarette use?: No Number of Years Smokin Last Time Smoked: 2015 Frequency of Alcohol Use: None Hx Recreational Drug Use: No Drugs: None Hx Prescription Drug Abuse: No Family History Family History: DM, Hypertension Parental Family History Reviewed: Yes - No familial illnesses Children Family History Reviewed: NA Sibling(s) Family History Reviewed.: NA Medication/Allergy Home Medications: Albuterol Sulfate [Proair HFA Inhalation Aerosol 8.5 gm MDI] 2 puff IH QIDP PRN 04/15/20 Ipratropium [place] [Atrovent Hfa] 1 puff PO QID 04/15/20 Metoprolol Succinate [Toprol Xl] 200 mg PO DAILY 04/15/20 Paroxetine HCl [Paxil] 20 mg PO QAM 04/15/20 Topiramate 50 mg PO BID 04/15/20 Aspirin [Ecotrin 81 mg EC Tablet] 81 mg PO DAILY #90 tabec 04/16/20 Ferrous Sulfate [Feosol 325 mg Tablet] 325 mg PO DAILY #90 tablet 04/16/20 Furosemide [Lasix 80 mg Tablet] 80 mg PO DAILY #30 tablet 04/16/20 Losartan Potassium [Cozaar 25 mg Tablet] 25 mg PO Q12 #60 tablet 04/16/20 Loratadine [Claritin 10 mg Tablet] 10 mg PO DAILY 05/21/20 Allergies/Adverse Reactions: No Known Allergies Allergy (Verified 04/03/19 16:57) Review of Systems Constitutional: PRESENT: as per HPI Eyes: PRESENT: as per HPI Ears: PRESENT: as per HPI Cardiovascular: PRESENT: dyspnea on exertion, edema, orthropnea Respiratory: PRESENT: dyspnea Gastrointestinal: ABSENT: as per HPI, abdominal pain, bloating, coffee ground emesis, constipation, diarrhea, dysphagia, heartburn, hematemesis, hematochezia, melena, nausea, vomiting, other Genitourinary: ABSENT: as per HPI, difficulty urinating, dysuria, hematuria, nocturia, other Physical Exam Vital Signs: Temp Pulse Resp BP Pulse Ox 98.4 F 81 18 131/74 H 95 05/26/20 13:07 05/26/20 13:07 05/26/20 13:07 05/26/20 13:07 05/26/20 13:07 Intake & Output 05/25/20 05/26/20 05/27/20 06:59 06:59 06:59 Intake Total 1746 980 476 Output Total 900 Balance 846 980 476 Weight 136.5 kg 136.5 kg General appearance: PRESENT: no acute distress, disheveled, obese, well- developed, well-nourished Head exam: PRESENT: atraumatic, normocephalic Eye exam: PRESENT: EOMI Mouth exam: PRESENT: moist Neck exam: PRESENT: JVD Respiratory exam: PRESENT: crackles, symmetrical, unlabored Cardiovascular exam: PRESENT: RRR, +S1, +S2 Pulses: PRESENT: normal radial pulses Rectal exam: PRESENT: deferred Musculoskeletal exam: PRESENT: normal inspection Neurological exam: PRESENT: alert, awake, oriented to person, oriented to place, oriented to time, oriented to situation Psychiatric exam: PRESENT: appropriate affect Skin exam: PRESENT: dry, intact Results Laboratory Results: 05/25/20 07:47 05/25/20 04:42 05/20/20 05/21/20 05/21/20 20:10 01:40 07:24 Troponin I 0.022 0.019 0.013 NT-Pro-B Natriuret Pep 1020 H 924 H 05/21/20 05/22/20 13:17 06:22 Troponin I < 0.012 NT-Pro-B Natriuret Pep 645 H EKG Comments: Transthoracic echocardiogram 04/13/2020 Ventricular ejection fraction 45 to 50% RV is normal in size and function There is no aortic valve stenosis There is no significant valve lesion There is no pericardial effusion Twelve-lead EKG 04/13/2020. Independently viewed by me.- Sinus tachycardia 111 bpm, left abnormality, borderline T wave abnormalities in the lateral leads, normal AV conduction, QTC is 473 ms. Twelve-lead EKG 05/22/2020 6:41 AM. Independently viewed by me. Sinus rhythm, left atrial abnormality, right atrial abnormality, left ventricular hypertrophy, QTC is mildly prolonged at 520 ms. Twelve-lead EKG 05/21/2020 7:08 AM. Independently viewed by me. Sinus tachycardia 4 bpm, left ventricular hypertrophy, septal abnormality, QTC is 501 ms Twelve-lead EKG 05/20/2020. 2000. Independently viewed by me. Sinus tachycardia 122 bpm, occasional abnormality, QTC 464 ms Cardiac troponin XII 04/30/2020 less than 0.012. Troponin profile is nondiagnostic Chest x-ray 05/20/2020 Cardiomegaly with mild pulmonary vascular congestion Serum creatinine is 1.12 on 05/23/2020 NT proBNP 05/20/2020-1020 Impressions: Chest X-Ray 05/20/20 19:54 IMPRESSION: 1. Cardiomegaly with mild pulmonary vascular congestion. Venous Doppler Study 05/20/20 19:54 IMPRESSION: No DVT in the right lower extremity. Assessment & Plan - Diagnosis (1) Acute exacerbation of CHF (congestive heart failure) Qualifiers: Heart failure type: systolic Qualified Code(s): I50.23 - Acute on chronic s ystolic (congestive) heart failure Is this a current diagnosis for this admission?: Yes Plan: Acute decompensated systolic congestive heart failure I suspect patient has not been compliant with the medications. This is happened on previous occasions too. At the moment patient appears to be clinically improved. Recommend continuing losartan 50 mg twice daily Can be switched to a daily dosing regimen for better compliance Continue metoprolol succinate 200 mg daily Continue bumetanide intravenously for the next 24 hours consider switching to oral dose in the next 24 hours (2) Anemia Qualifiers: Anemia type: unspecified type Qualified Code(s): D64.9 - Anemia, unspecified Is this a current diagnosis for this admission?: Yes Plan: Continue iron supplementation (3) HTN (hypertension) Qualifiers: Hypertension type: unspecified Qualified Code(s): I10 - Essential (primary) hypertension Is this a current diagnosis for this admission?: Yes Plan: Should institute free water restriction as well as avoidance of salt to foods. Continue to monitor blood pressure as we diurese Presently therapy consists of losartan as well as metoprolol succinate. (4) Noncompliance with medication regimen Is this a current diagnosis for this admission?: Yes Plan: Although patient does not admit to this I suspect that there is an underlying component of medication nonadherence or inability to follow directions with medications/dietary indiscretion that may precipitate these episodes of heart failure. Underlying anemia probably is not helpful.
--- NOTE | 2020-05-26 18:25 | PDOC PROGRESS REPORT ---
Subjective Subjective:: Per Previous Physician: "AXEL WELLS is a 35 year old female The patient is suffering from nonischemic cardiomyopathy. Previously she had combine systolic and diastolic dysfunction with depressed left ventricular ejec tion fraction. Echocardiogram last month revealed left ventricular ejection fraction 45 to 50% with minimal left ventricular hypokinesis. Grade 3 diastolic dysfunction. This was an improvement. No significant heart valve abnormalities. The patient had several admissions for heart failure [facility]. Last hospital admission was in April this year. For the last 2 to 3 days the patient was developing increasing shortness of breath, increasing swelling of both legs and some generalized edema. Her exercise tolerance was declining. In the emergency department she was given intravenous furosemide, started feeling slightly better. Her oxygen saturation was 88% on room air, on 2 L of oxygen is 98%. On nasal oxygen she does not appear to be in any distress. She did not have any chest pain." 05/22/2020 Patient still having significant edema in her bilateral lower extremities and t his is causing her quite a bit of discomfort. I discussed trying compression stockings with the patient noting that this could increase her discomfort temporarily but it would certainly push her edema back in her circulatory system and help her to urinate out with the aid of Lasix. Patient is agreeable to attempting this. Will need nursing to get her appropriately sized compression stockings. Patient states she has a large amount of urine output regularly throughout the day. BNP is lower today. She has no new complaints otherwise. 05/23/2020 Patient still having significant amount of edema in her lower extremities. She does have a great deal of urine output but I believe she is drinking a substantial water as well as she states she feels quite thirsty at times. Yesterday she had approximately 2 L of urine out. I told her to take small sips of water rather than drinking large amounts even if she feels thirsty. We will continue Lasix at its current dose. I noticed on her UA on admission she had an excessive amount of protein and I will get a repeat UA with urine protein cre atinine ratio to see if she has nephrotic syndrome which would be more consistent with her physical exam findings of edema without any significant pulmonary edema or severe heart failure seen on previous echo. If she does have significant proteinuria on these tests, she may benefit from a kidney biopsy as she could have an inflammatory form of nephrotic syndrome that would be amenable to steroid treatment. We may need nephrology input as well. Of note, her serum albumin was low on admission as well. I will switch her to Bumex as this has some benefit over Lasix in the setting of hypoalbuminemia. 05/24/2020 Edema and patient's legs still rather prominent. Urine protein creatinine ratio is normal and she has significantly less protein in her urine upon recheck of UA. Urine culture was sent as a reflex although there is no evidence of infection in her UA. Cardiology consulted and will see the patient in the next 24 hours. We will start SCD to help recirculate fluid pulling in her legs. 05/25/2020 Patient's edema is very mildly improved today. I believe she would benefit from at least an additional day of IV Bumex. I put her on a fluid restriction has despite my extensive counseling yesterday on drinking too much fluids, she is drinking a far larger amount of fluids than she should be drinking for us to adequately diurese her. I discussed this with her again and she stated she would try to drink less water. 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 Rico that she sees Dr. Thomas outpatient and I have consulted him instead. Unfortunately, is in the afternoon now and Dr. Thomas likely not be able to see her until tomorrow. She has no new complaints today. 05/26/2020 Legs are actually more edematous today. I suspect the pt is drinking excessive water again. She stated she is "trying" to drink less water. Cardiology consulted today and recommended bumex IV until tomorrow then transition to oral. Possible DC tomorrow. Reason For Visit: HEART FAILURE Physical Exam Vital Signs: Temp Pulse Resp BP Pulse Ox 98.0 F 84 18 114/61 94 05/26/20 16:41 05/26/20 16:41 05/26/20 16:41 05/26/20 16:41 05/26/20 16:41 Intake & Output 05/25/20 05/26/20 05/27/20 06:59 06:59 06:59 Intake Total 1746 980 476 Output Total 900 Balance 846 980 476 Weight 136.5 kg 136.5 kg Exam: General appearance: PRESENT: no acute distress, well-developed, well-nourished, morbidly obese with BMI 49.7, states she is trying to drink less water Head exam: PRESENT: atraumatic, normocephalic Eye exam: PRESENT: conjunctiva pink. ABSENT: scleral icterus Mouth exam: PRESENT: moist Respiratory exam: PRESENT: clear to auscultation [place]. ABSENT: rales, rhonchi, wheezes Cardiovascular exam: PRESENT: RRR. ABSENT: diastolic murmur, rubs, systolic murmur; + 3 BLE edema a bit worse GI/Abdominal exam: PRESENT: normal bowel sounds, soft. ABSENT: distended, guarding, mass, organolmegaly, rebound, tenderness Neurological exam: PRESENT: alert, awake, oriented to person, oriented to place, oriented to time, oriented to situation Psychiatric exam: PRESENT: appropriate affect, normal mood Skin exam: PRESENT: dry, intact, warm Results Laboratory Results: 05/25/20 07:47 05/25/20 04:42 05/20/20 05/21/20 05/21/20 20:10 01:40 07:24 Troponin I 0.022 0.019 0.013 NT-Pro-B Natriuret Pep 1020 H 924 H 05/21/20 05/22/20 13:17 06:22 Troponin I < 0.012 NT-Pro-B Natriuret Pep 645 H Impressions: Chest X-Ray 05/20/20 19:54 IMPRESSION: 1. Cardiomegaly with mild pulmonary vascular congestion. Venous Doppler Study 05/20/20 19:54 IMPRESSION: No DVT in the right lower extremity. Assessment and Plan - Diagnosis (1) Acute exacerbation of CHF (congestive heart failure) Qualifiers: Heart failure type: systolic Qualified Code(s): I50.23 - Acute on chronic systolic (congestive) heart failure Is this a current diagnosis for this admission?: Yes (2) CHF, acute on chronic Qualifiers: Heart failure type: combined systolic and diastolic Qualified Code(s): I50.43 - Acute on chronic combined systolic (congestive) and diastolic (congestive) heart failure Is this a current diagnosis for this admission?: Yes (3) DM type 2 (diabetes mellitus, type 2) Qualifiers: Diabetes mellitus intermediate insulin use: without exterminator helper termite use Diabetes mellitus complication status: without complication Qualified Code(s): E11.9 - Type 2 diabetes mellitus without complications Is this a current diagnosis for this admission?: Yes (4) Edema of both lower extremities Is this a current diagnosis for this admission?: Yes (5) Hypertensive emergency Is this a current diagnosis for this admission?: Yes (6) HTN (hypertension) Qualifiers: Hypertension type: unspecified Qualified Code(s): I10 - Essential (primary) hypertension Is this a current diagnosis for this admission?: Yes (7) Suspected COVID-19 virus infection Is this a current diagnosis for this admission?: Yes - Plan Summary Summary: Diastolic CHF, acute on chronic Acute on chronic diastolic heart failure IV Lasix changed to IV Bumex for hypoalbuminemia Recent echo reviewed Very slow diuresis given that patient is drinking excessive amounts of water despite being counseled on this multiple times during the admission Needs follow-up with cardiology after discharge Cardiology consulted: Follows with Dr. Thomas outpatient, consulted here SCD Proteinuriaresolved UA on admission showed urine protein greater than 500, repeat UA showed no significant proteinuria Urine protein creatinine ratio normal Consider nephrology consult if this recurs Hypertensive emergency Per Previous Physician: "She received intravenous labetalol in the emergency department. Now her blood pressure is better. She may need additional blood pressure medication if metoprolol and losartan will not control her blood pressure." Antihypertensives continued, blood pressure better controlled Edema of both lower extremities Per Previous Physician: "Secondary to congestive heart failure. Right lower extremity venous Doppler was negative for DVT." Person under investigation for COVID-19 Per Previous Physician: "She has bilateral pulmonary infiltrates most likely related to heart failure. She is afebrile. She may have asymptomatic coronavirus infection. COVID-19 test pending." Negative Anemia Per Previous Physician: "She has chronic anemia, hemoglobin was 8.1 last month. She was on oral iron supplement. I will check anemia studies. If indicated she may benefit from intravenous iron." DM type 2 (diabetes mellitus, type 2) Per Previous Physician: "She has diet-controlled type 2 diabetes. Diabetic diet. Monitor blood glucose. Correction dose insulin if needed. Hemoglobin A1c." Accu-Cheks and sliding scale insulin Morbid obesity Per Previous Physician: "Her BMI is 53.6. Weight loss would be helpful for her." - Time Time Spent with patient: 15-24 minutes Medications reviewed and adjusted accordingly: Yes Anticipated Discharge Disposition: Home, Self Care Anticipated Discharge Timeframe: within 24 hours - Inpatient Certification Based on my medical assessment, after consideration of the patient's comorbidities, presenting symptoms, or acuity I expect that the services needed warrant INPATIENT care.: Yes I certify that my determination is in accordance with my understanding of Medicare's requirements for reasonable and necessary INPATIENT services [42 CFR 412.3e].: Yes Medical Necessity: Significant Comorbidiites Make Outpatient Treatment Too Risky, Need Close Monitoring Due to Risk of Patient Decompensation, Risk of Complication if Not Cared For in Hospital, Risk of Diagnosis Which Will Require Inpatient Eval/Care/Monitoring
[2020-05-27 06:35] LABS: ABSOLUTE BASOPHILS # (AUTO) 0.1 10^3/uL (0.0-0.2); ABSOLUTE EOSINOPHILS # (AUTO) 0.4 10^3/uL (0.0-0.6); ABSOLUTE LYMPHOCYTES (AUTO) 1.8 10^3/uL (0.5-4.7); ABSOLUTE MONOCYTES (AUTO) 0.9 10^3/uL (0.1-1.4); ABSOLUTE NEUT (AUTO) 6.5 10^3/uL (1.7-8.2); EOSINOPHILS % (AUTO) 3.6 % (0-6); HEMATOCRIT 32.4 % (36.0-47.0); HEMOGLOBIN 9.6 g/dL (12.0-15.5); LYMPHOCYTES % (AUTO) 18.7 % (13-45); MEAN CORPUSCULAR HEMOGLOBIN 18.8 pg (27.0-33.4); MEAN CORPUSCULAR HGB CONC 29.5 g/dL (32.0-36.0); MEAN CORPUSCULAR VOLUME 64 fl (80-97); MONOCYTES % (AUTO) 9.3 % (3-13); PLATELET COUNT 355 10^3/uL (150-450); RED BLOOD COUNT 5.07 10^6/uL (3.72-5.28); RED CELL DISTRIBUTION WIDTH 21.7 % (11.5-14.0); SEGMENTED NEUTROPHILS % (AUTO) 67.4 % (42-78); TOTAL CELLS COUNTED % (AUTO) 100 %; WHITE BLOOD COUNT 9.7 10^3/uL (4.0-10.5)
[2020-05-27 06:55] LABS: ANION GAP 7 (5-19); BLOOD UREA NITROGEN 19 mg/dL (7-20); CALCIUM 9.1 mg/dL (8.4-10.2); CARBON DIOXIDE 30 mmol/L (22-30); CHLORIDE 101 mmol/L (98-107); GLUCOSE 85 mg/dL (75-110); POTASSIUM 3.9 mmol/L (3.6-5.0)
[2020-05-27 07:16] LABS: POLYCHROMASIA SLIGHT
[2020-05-27 07:17] LABS: HYPOCHROMASIA 3+; PLATELET COMMENT ADEQUATE; SPHEROCYTES SLIGHT; TARGET CELLS 1+
[2020-05-27] MEDS: FERROUS SULFATE 325 MG TABLET PO SCH (09:47)
[2020-05-27] MEDS: METOPROLOL SUCCINATE 50 MG TAB.SR.24H PO SCH (09:47)
[2020-05-27] MEDS: ASPIRIN 81 MG TABLET, ENT COATED PO SCH (09:48)
[2020-05-27] MEDS: TOPIRAMATE 25 MG TABLET PO SCH (09:48)
[2020-05-27] MEDS: LOSARTAN POTASSIUM 50 MG TABLET PO SCH (09:48)
[2020-05-27] MEDS: PAROXETINE HCL 20 MG TABLET PO SCH (09:48)
[2020-05-27] MEDS: LORATADINE 10 MG TABLET PO SCH (09:48)
[2020-05-27] MEDS: ENOXAPARIN SODIUM INJ 40 MG/0.4 ML DISP.SYRIN SUBCUT SCH (09:49)
[2020-05-27] MEDS: BUMETANIDE INJ/PF 1 MG/4 ML SDV IV SCH (09:49)
--- NOTE | 2020-05-27 11:53 | PDOC PROGRESS REPORT ---
Subjective Date:: 05/27/20 Subjective:: Patient seen and examined today. Reason For Visit: HEART FAILURE Physical Exam Vital Signs: Temp Pulse Resp BP Pulse Ox 97.9 F 80 19 121/69 97 05/27/20 10:00 05/27/20 07:14 05/27/20 07:14 05/27/20 07:14 05/27/20 07:14 Intake & Output 05/26/20 05/27/20 05/28/20 06:59 06:59 06:59 Intake Total 980 1071 Balance 980 1071 Weight 136.5 kg 136 kg General appearance: PRESENT: no acute distress, cooperative, obese, well-dev eloped, well-nourished Head exam: PRESENT: atraumatic, normocephalic Eye exam: PRESENT: conjunctiva pink, EOMI Respiratory exam: PRESENT: crackles, symmetrical, unlabored Cardiovascular exam: PRESENT: RRR, +S1, +S2, systolic murmur Pulses: PRESENT: normal radial pulses GI/Abdominal exam: PRESENT: soft Rectal exam: PRESENT: deferred Extremities exam: PRESENT: +1 edema - SCD noted. Still does have some edema. Musculoskeletal exam: PRESENT: normal inspection Neurological exam: PRESENT: alert, awake, oriented to person, oriented to place, oriented to time, oriented to situation Psychiatric exam: PRESENT: appropriate affect Skin exam: PRESENT: dry, intact, normal color Results Laboratory Results: 05/27/20 05:43 05/27/20 05:43 05/27/20 05/27/20 05:43 05:43 WBC 9.7 RBC 5.07 Hgb 9.6 L Hct 32.4 L MCV 64 L MCH 18.8 L MCHC 29.5 L RDW 21.7 H Plt Count 355 Seg Neutrophils % 67.4 Sodium 137.6 Potassium 3.9 Chloride 101 Carbon Dioxide 30 Anion Gap 7 BUN 19 Creatinine 1.16 Est GFR ( Amer) > 60 Glucose 85 Calcium 9.1 05/20/20 05/21/20 05/21/20 20:10 01:40 07:24 Troponin I 0.022 0.019 0.013 NT-Pro-B Natriuret Pep 1020 H 924 H 05/21/20 05/22/20 13:17 06:22 Troponin I < 0.012 NT-Pro-B Natriuret Pep 645 H Impressions: Chest X-Ray 05/20/20 19:54 IMPRESSION: 1. Cardiomegaly with mild pulmonary vascular congestion. Venous Doppler Study 05/20/20 19:54 IMPRESSION: No DVT in the right lower extremity. Assessment & Plan - Diagnosis (1) Acute exacerbation of CHF (congestive heart failure) Qualifiers: Heart failure type: systolic Qualified Code(s): I50.23 - Acute on chronic systolic (congestive) heart failure Is this a current diagnosis for this admission?: Yes Plan: Acute decompensated systolic congestive heart failure Mild LV dysfunction Suspect medication nonadherence and indulgence in salt perhaps. Although patient does not admit to these. Consider switching to oral bumetanide today. We will arrange for outpatient follow-up. (2) Anemia Qualifiers: Anemia type: unspecified type Qualified Code(s): D64.9 - Anemia, unspecified Is this a current diagnosis for this admission?: Yes Plan: Continue iron supplementation This needs to be optimized for better management of heart failure as well and may be a contributing factor. (3) HTN (hypertension) Qualifiers: Hypertension type: unspecified Qualified Code(s): I10 - Essential (primary) hypertension Is this a current diagnosis for this admission?: Yes Plan: Avoid added salt Continue beta-carlos (4) Noncompliance with medication regimen Is this a current diagnosis for this admission?: Yes Plan: Strict compliance with medication regimen is necessary as also avoidance of salt and fluid restriction to 1.25 L/day.
--- NOTE | 2020-05-27 15:56 | PDOC DISCHARGE SUMMARY ---
Impression - Admit/DC Date/PCP Admission Date/Primary Care Provider: 05/21/20 00:40 GEOVANI RAE Discharge Date: 05/27/20 - Discharge Diagnosis (1) Acute exacerbation of CHF (congestive heart failure) Is this a current diagnosis for this admission?: Yes (2) CHF, acute on chronic Is this a current diagnosis for this admission?: Yes (3) DM type 2 (diabetes mellitus, type 2) Is this a current diagnosis for this admission?: Yes (4) Edema of both lower extremities Is this a current diagnosis for this admission?: Yes (5) Hypertensive emergency Is this a current diagnosis for this admission?: Yes (6) HTN (hypertension) Is this a current diagnosis for this admission?: Yes (7) Suspected COVID-19 virus infection Is this a current diagnosis for this admission?: Yes - Assessment Summary: Per Previous Physician: "AXEL WELLS is a 35 year old female The patient is suffering from nonischemic cardiomyopathy. Previously she had combine systolic and diastolic dysfunction with depressed left ventricular ejection fraction. Echocardiogram last month revealed left ventricular ejection fraction 45 to 50% with minimal left ventricular hypokinesis. Grade 3 diastolic dysfunction. This was an improvement. No significant heart valve abnormalities. The patient had several admissions for heart failure exacerb ation. Last hospital admission was in April this year. For the last 2 to 3 days the patient was developing increasing shortness of breath, increasing swelling of both legs and some generalized edema. Her exercise tolerance was declining. In the emergency department she was given intravenous furosemide, started feeling slightly better. Her oxygen saturation was 88% on room air, on 2 L of oxygen is 98%. On nasal oxygen she does not appear to be in any distress. She did not have any chest pain." 05/22/2020 Patient still having significant edema in her bilateral lower extremities and th is is causing her quite a bit of discomfort. I discussed trying compression stockings with the patient noting that this could increase her discomfort temporarily but it would certainly push her edema back in her circulatory system and help her to urinate out with the aid of Lasix. Patient is agreeable to attempting this. Will need nursing to get her appropriately sized compression stockings. Patient states she has a large amount of urine output regularly throughout the day. BNP is lower today. She has no new complaints otherwise. 05/23/2020 Patient still having significant amount of edema in her lower extremities. She does have a great deal of urine output but I believe she is drinking a substantial water as well as she states she feels quite thirsty at times. Yesterday she had approximately 2 L of urine out. I told her to take small sips of water rather than drinking large amounts even if she feels thirsty. We will continue Lasix at its current dose. I noticed on her UA on admission she had an excessive amount of protein and I will get a repeat UA with urine protein creatinine ratio to see if she has nephrotic syndrome which would be more consistent with her physical exam findings of edema without any significant pulmonary edema or severe heart failure seen on previous echo. If she does have significant proteinuria on these tests, she may benefit from a kidney biopsy as she could have an inflammatory form of nephrotic syndrome that would be amenable to steroid treatment. We may need nephrology input as well. Of note, her serum albumin was low on admission as well. I will switch her to Bumex as this has some benefit over Lasix in the setting of hypoalbuminemia. 05/24/2020 Edema and patient's legs still rather prominent. Urine protein creatinine ratio is normal and she has significantly less protein in her urine upon recheck of UA. Urine culture was sent as a reflex although there is no evidence of infection in her UA. Cardiology consulted and will see the patient in the next 24 hours. We will start SCD to help recirculate fluid pulling in her legs. 05/25/2020 Patient's edema is very mildly improved today. I believe she would benefit from at least an additional day of IV Bumex. I put her on a fluid restriction has despite my extensive counseling yesterday on drinking too much fluids, she is drinking a far larger amount of fluids than she should be drinking for us to adequately diurese her. I discussed this with her again and she stated she would try to drink less water. I consulted cardiology and even though the patient told me she did not have a textile dyer on a previous encounter, she has now told Dr. Rico that she sees Dr. Thomas outpatient and I have consulted him instead. Unfortunately, is in the afternoon now and Dr. Thomas likely not be able to see her until tomorrow. She has no new complaints today. 05/26/2020 Legs are actually more edematous today. I suspect the pt is drinking excessive water again. She stated she is "trying" to drink less water. Cardiology consulted today and recommended bumex IV until tomorrow then transition to oral. Possible DC tomorrow. On day of discharge, patient had significant improvement in her lower extremity edema. She states she has good urine output on feels the pressure in her legs is notably less. She was counseled extensively on restricting her salt and fluid intake. She will need close follow-up with her PCP and textile dyer Dr. Thomas. She states she feels well and is in agreement with discharge. Acute on chronic combined systolic and diastolic CHF Acute on chronic diastolic heart failure IV Lasix changed to IV Bumex for hypoalbuminemia Recent echo reviewed Very slow diuresis given that patient appears to be drinking excessive amounts of water despite being counseled on this multiple times during the admission Needs follow-up with cardiology after discharge Cardiology consulted: Follows with Dr. Thomas outpatient, consulted here SCD Discharged on 2 mg oral Bumex twice daily, counseled on fluid and salt restriction at home Proteinuriaresolved UA on admission showed urine protein greater than 500, repeat UA showed no significant proteinuria Urine protein creatinine ratio normal Consider nephrology consult if this recurs Hypertensive emergency Per Previous Physician: "She received intravenous labetalol in the emergency department. Now her blood pressure is better. She may need additional blood pressure medication if metoprolol and losartan will not control her blood pressure." Antihypertensives continued, blood pressure better controlled Edema of both lower extremities Per Previous Physician: "Secondary to congestive heart failure. Right lower extremity venous Doppler was negative for DVT." Person under investigation for COVID-19 Per Previous Physician: "She has bilateral pulmonary infiltrates most likely related to heart failure. She is afebrile. She may have asymptomatic coronavirus infection. COVID-19 t est pending." Negative Anemia Per Previous Physician: "She has chronic anemia, hemoglobin was 8.1 last month. She was on oral iron supplement. I will check anemia studies. If indicated she may benefit from intravenous iron." DM type 2 (diabetes mellitus, type 2) Per Previous Physician: "She has diet-controlled type 2 diabetes. Diabetic diet. Monitor blood glucose. Correction dose insulin if needed. Hemoglobin A1c." Accu-Cheks and sliding scale insulin Morbid obesity Per Previous Physician: "Her BMI is 53.6. Weight loss would be helpful for her." - Additional Information Resuscitation Status: Full Code Discharge Diet: Cardiac, Diabetic Discharge Activity: Activity As Tolerated, Balance Activity w/Rest, Weigh Daily [facility]errals: [facility] [NO [facility]AL [facility]] - Follow up as needed Prescriptions: Bumetanide [Bumex 1 mg Tablet] 1 mg PO BID #60 tablet Home Medications: Albuterol Sulfate [Proair HFA Inhalation Aerosol 8.5 gm MDI] 2 puff IH QIDP PRN 04/15/20 Ipratropium [place] [Atrovent Hfa] 1 puff PO QID 04/15/20 Metoprolol Succinate [Toprol Xl] 200 mg PO DAILY 04/15/20 Paroxetine HCl [Paxil] 20 mg PO QAM 04/15/20 Topiramate 50 mg PO BID 04/15/20 Aspirin [Ecotrin 81 mg EC Tablet] 81 mg PO DAILY #90 tabec 04/16/20 Ferrous Sulfate [Feosol 325 mg Tablet] 325 mg PO DAILY #90 tablet 04/16/20 Losartan Potassium [Cozaar 25 mg Tablet] 25 mg PO Q12 #60 tablet 04/16/20 Loratadine [Claritin 10 mg Tablet] 10 mg PO DAILY 05/21/20 Bumetanide [Bumex 1 mg Tablet] 1 mg PO BID #60 tablet 05/27/20 History of Present Illiness History of Present Illness: AXEL WELLS is a 35 year old female Physical Exam Vital Signs: Temp Pulse Resp BP Pulse Ox 98.3 F 102 H 19 100/69 93 05/27/20 11:12 05/27/20 11:12 05/27/20 11:12 05/27/20 11:12 05/27/20 11:12 Intake & Output 05/26/20 05/27/20 05/28/20 06:59 06:59 06:59 Intake Total 980 1071 360 Balance 980 1071 360 Weight 136.5 kg 136 kg Exam: General appearance: PRESENT: no acute distress, well-developed, well-nourished, morbidly obese with BMI 49.7, states she feels well and would like to go home Head exam: PRESENT: atraumatic, normocephalic Eye exam: PRESENT: conjunctiva pink. ABSENT: scleral icterus Mouth exam: PRESENT: moist Respiratory exam: PRESENT: clear to auscultation [place]. ABSENT: rales, rhonchi, wheezes Cardiovascular exam: PRESENT: RRR. ABSENT: diastolic murmur, rubs, systolic murmur; + 2 BLE edema improved GI/Abdominal exam: PRESENT: normal bowel sounds, soft. ABSENT: distended, guarding, mass, organolmegaly, rebound, tenderness Neurological exam: PRESENT: alert, awake, oriented to person, oriented to place, oriented to time, oriented to situation Psychiatric exam: PRESENT: appropriate affect, normal mood Skin exam: PRESENT: dry, intact, warm Results Laboratory Results: WBC 9.7 10^3/uL (4.0-10.5) 05/27/20 05:43 RBC 5.07 10^6/uL (3.72-5.28) 05/27/20 05:43 Hgb 9.6 g/dL (12.0-15.5) L 05/27/20 05:43 Hct 32.4 % (36.0-47.0) L 05/27/20 05:43 MCV 64 fl (80-97) L 05/27/20 05:43 MCH 18.8 pg (27.0-33.4) L 05/27/20 05:43 MCHC 29.5 g/dL (32.0-36.0) L 05/27/20 05:43 RDW 21.7 % (11.5-14.0) H 05/27/20 05:43 Plt Count 355 10^3/uL (150-450) 05/27/20 05:43 Lymph % (Auto) 18.7 % (13-45) 05/27/20 05:43 [place] % (Auto) 9.3 % (3-13) 05/27/20 05:43 Eos % (Auto) 3.6 % (0-6) 05/27/20 05:43 Baso % (Auto) 1.0 % (0-2) 05/27/20 05:43 Reticulocyte # 0.141 10^6/uL (0.028-0.122) H 05/22/20 06:22 Absolute Neuts (auto) 6.5 10^3/uL (1.7-8.2) 05/27/20 05:43 Absolute Lymphs (auto) 1.8 10^3/uL (0.5-4.7) 05/27/20 05:43 Absolute Monos (auto) 0.9 10^3/uL (0.1-1.4) 05/27/20 05:43 Absolute Eos (auto) 0.4 10^3/uL (0.0-0.6) 05/27/20 05:43 Absolute Basos (auto) 0.1 10^3/uL (0.0-0.2) 05/27/20 05:43 Total Counted 100 05/25/20 07:47 Seg Neutrophils % 67.4 % (42-78) 05/27/20 05:43 Seg Neuts % (Manual) 72 % (42-78) 05/25/20 07:47 Band Neutrophils % 2 % (3-5) L 05/21/20 07:24 Lymphocytes % (Manual) 18 % (13-45) 05/25/20 07:47 Monocytes % (Manual) 7 % (3-13) 05/25/20 07:47 Eosinophils % (Manual) 2 % (0-6) 05/25/20 07:47 Basophils % (Manual) 1 % (0-2) 05/25/20 07:47 Abs Neuts (Manual) 6.4 10^3/uL (1.7-8.2) 05/25/20 07:47 Abs Lymphs (Manual) 1.6 10^3/uL (0.5-4.7) 05/25/20 07:47 Abs Monocytes (Manual) 0.6 10^3/uL (0.1-1.4) 05/25/20 07:47 Absolute Eos (Manual) 0.2 10^3/uL (0.0-0.6) 05/25/20 07:47 Abs Basophils (Manual) 0.1 10^3/uL (0.0-0.2) 05/25/20 07:47 Nucleated RBCs 3 /100 WBC (0) 05/21/20 07:24 Platelet Estimate Cancelled 05/25/20 04:42 Platelet Comment ADEQUATE 05/27/20 05:43 Polychromasia SLIGHT 05/27/20 05:43 Hypochromasia 3+ 05/27/20 05:43 Poikilocytosis 2+ 05/25/20 07:47 Anisocytosis 3+ 05/25/20 07:47 Microcytosis 3+ 05/27/20 05:43 Spherocytes SLIGHT 05/27/20 05:43 Target Cells 1+ 05/27/20 05:43 Tear Drop Cells 1+ 05/21/20 07:24 Ovalocytes 1+ 05/25/20 07:47 Retic Count (auto) 2.82 % (0.66-2.85) 05/22/20 06:22 Sodium 137.6 mmol/L (137-145) 05/27/20 05:43 Potassium 3.9 mmol/L (3.6-5.0) 05/27/20 05:43 Chloride 101 mmol/L (98-107) 05/27/20 05:43 Carbon Dioxide 30 mmol/L (22-30) 05/27/20 05:43 Anion Gap 7 (5-19) 05/27/20 05:43 BUN 19 mg/dL (7-20) 05/27/20 05:43 Creatinine 1.16 mg/dL (0.52-1.25) 05/27/20 05:43 Est GFR ( Amer) > 60 (>60) 05/27/20 05:43 Est GFR (MDRD) Non-Af 53 (>60) L 05/27/20 05:43 Glucose 85 mg/dL (75-110) 05/27/20 05:43 Hemoglobin A1c % 5.1 % (4.7-6.0) 05/22/20 06:22 Calcium 9.1 mg/dL (8.4-10.2) 05/27/20 05:43 Magnesium 1.7 mg/dL (1.6-2.3) 05/22/20 10:36 Iron 28.8 ug/dL (37-170) L 05/22/20 06:22 TIBC 459 ug/dL (250-450) H 05/22/20 06:22 % Saturation 6 % 05/22/20 06:22 Ferritin 8.37 ng/mL (6.2-137.0) 05/22/20 06:22 Total Bilirubin 0.5 mg/dL (0.2-1.3) 05/20/20 20:10 Direct Bilirubin 0.1 mg/dL (0.0-0.4) 05/20/20 20:10 Neonat Total Bilirubin Not Reportable 05/20/20 20:10 Neonat Direct Bilirubin Not Reportable 05/20/20 20:10 Neonat Indirect Bili Not Reportable 05/20/20 20:10 AST 42 U/L (14-36) H 05/20/20 20:10 ALT 30 U/L (<35) 05/20/20 20:10 Alkaline Phosphatase 69 U/L (38-126) 05/20/20 20:10 Troponin I < 0.012 ng/mL 05/21/20 13:17 NT-Pro-B Natriuret Pep 645 pg/mL (<125) H 05/22/20 06:22 Total Protein 6.5 g/dL (6.3-8.2) 05/20/20 20:10 Albumin 3.3 g/dL (3.5-5.0) L 05/20/20 20:10 Triglycerides 89 mg/dL (<150) 05/22/20 06:22 Cholesterol 151.43 mg/dL (0-200) 05/22/20 06:22 LDL Cholesterol Direct 82 mg/dL (<100) 05/22/20 06:22 VLDL Cholesterol 18.0 mg/dL (10-31) 05/22/20 06:22 HDL Cholesterol 46 mg/dL (>40) 05/22/20 06:22 Vitamin B12 809.0 pg/mL (239-931) 05/22/20 06:22 Folate 9.69 ng/mL (>2.76) 05/22/20 06:22 TSH 0.81 uIU/mL (0.47-4.68) 05/22/20 06:22 Serum HCG, Qual NEGATIVE (NEGATIVE) 05/20/20 20:10 Urine Color YELLOW 05/24/20 00:50 Urine Appearance CLEAR 05/24/20 00:50 Urine pH 8.0 (5.0-9.0) 05/24/20 00:50 Ur Specific [place] 1.009 05/24/20 00:50 Urine Protein NEGATIVE mg/dL (NEGATIVE) 05/24/20 00:50 Urine Glucose (UA) NEGATIVE mg/dL (NEGATIVE) 05/24/20 00:50 Urine Ketones NEGATIVE mg/dL (NEGATIVE) 05/24/20 00:50 Urine Blood MODERATE (NEGATIVE) H 05/24/20 00:50 Urine Nitrite NEGATIVE (NEGATIVE) 05/20/20 20:15 Urine Nitrite (Reflex) NEGATIVE (NEGATIVE) 05/24/20 00:50 Urine Bilirubin NEGATIVE (NEGATIVE) 05/24/20 00:50 Urine Urobilinogen NEGATIVE mg/dL (<2.0) 05/24/20 00:50 Ur Leukocyte Esterase TRACE (NEGATIVE) H 05/20/20 20:15 Leukocyte Esterase Rfl TRACE (NEGATIVE) H 05/24/20 00:50 Urine WBC (Auto) 4 /HPF 05/20/20 20:15 Urine RBC (Auto) 0 /HPF 05/24/20 00:50 U Hyaline Cast (Auto) 4 /LPF 05/20/20 20:15 Urine Bacteria (Auto) TRACE /HPF 05/24/20 00:50 Urine WBC (Reflex) 2 /HPF 05/24/20 00:50 Squamous Epi Cells Auto 2 /HPF 05/24/20 00:50 Urine Mucus (Auto) RARE /LPF 05/20/20 20:15 Urine Creatinine 77.8 mg/dL (16-327) 05/24/20 00:50 Protein/Creatinin Ratio 0.2 mg/mg (0.0-0.2) 05/24/20 00:50 Urine Total Protein 14.9 mg/dL (<12) H 05/24/20 00:50 Urine Ascorbic Acid NEGATIVE (NEGATIVE) 05/24/20 00:50 Influenza A (RT-PCR) NEGATIVE (NEGATIVE) 05/21/20 00:48 Influenza B (RT-PCR) NEGATIVE (NEGATIVE) 05/21/20 00:48 RSV (RT-PCR) NEGATIVE (NEGATIVE) 05/21/20 00:48 SARS-CoV-2 Rap RNA(RT-PCR) NEGATIVE (NEGATIVE) 05/21/20 00:48 Slides for Path Review Cancelled 05/25/20 04:42 05/20/20 05/21/20 05/21/20 20:10 01:40 07:24 Troponin I 0.022 0.019 0.013 NT-Pro-B Natriuret Pep 1020 H 924 H 05/21/20 05/22/20 13:17 06:22 Troponin I < 0.012 NT-Pro-B Natriuret Pep 645 H Impressions: Chest X-Ray 05/20/20 19:54 IMPRESSION: 1. Cardiomegaly with mild pulmonary vascular congestion. Venous Doppler Study 05/20/20 19:54 IMPRESSION: No DVT in the right lower extremity. Plan Plan of Treatment: Follow PCP Follow-up with cardiology Restrict fluid and salt intake Time Spent: Greater than 30 Minutes Stroke Is this a Stroke Patient?: No Acute Heart Failure Is this a Heart Failure Patient?: Yes Documentation of LVEF assessment?: Yes LVEF: LVEF Greater Than 40% Anticoagulant Therapy: N/A
[2020-05-27 16:21] VITALS: BP 111/61
== END 2020-05-27 17:55 | disposition home or self-care (01) | DRG 292 ==
LOC: ER 19:39 → EH 05-21 00:40 → 4N 05-21 03:09
PROVIDERS: ADMIT Internal Medicine; ATTEND Internal Medicine
DX: I11.0 Hypertensive heart disease with heart failure (principal); I16.1 Hypertensive emergency; Z68.43 Body mass index [BMI] 50.0-59.9, adult; I50.43 Acute on chronic combined systolic (congestive) and diastolic (congestive) heart failure; I42.8 Other cardiomyopathies; J45.909 Unspecified asthma, uncomplicated; D50.9 Iron deficiency anemia, unspecified; E11.9 Type 2 diabetes mellitus without complications; Z20.828 Contact with and (suspected) exposure to other viral communicable diseases; E66.01 Morbid (severe) obesity due to excess calories; F32.9 Major depressive disorder, single episode, unspecified; F41.9 Anxiety disorder, unspecified; Z79.51 Long term (current) use of inhaled steroids; Z79.82 Long term (current) use of aspirin; Z79.899 Other long term (current) drug therapy; Z83.3 Family history of diabetes mellitus; Z82.49 Family history of ischemic heart disease and other diseases of the circulatory system; Z90.49 Acquired absence of other specified parts of digestive tract; Z91.14 Patient's other noncompliance with medication regimen
CPT/HCPCS: 36415; 71046; 80048; 80053; 80061; 81001; 82570; 82607; 82728; 82746; 83036; 83540; 83550; 83735; 83880; 84156; 84443; 84484; 84703; 85025; 85045; 87086; 93005; 93010; 93971; 96374; 96375; 99285; 0241U; C9803; J1650; J1940; J3490